=== PATIENT | male | born 1990 | race Caucasian/White ===

== ENCOUNTER 2019-03-31 11:41 | Emergency (ER) | payer MEDICAID, SELFPAY ==
[2019-03-31 11:42] VITALS: BP 116/73; PULSE 82; RESP 18; TEMP 36.6; O2SAT 100; BMI 21.6
[2019-03-31 11:49] VITALS: O2SAT 97
--- NOTE | 2019-03-31 12:06 | ED.DCSUM_ITS ---
- ER Visit Summary Date of Service: 03/31/19 Chief Complaint: Cough History of Present Illness: The patient is a 29 M who presents with cough that has been constant for the past 2 weeks. Patient states he is coughing up some green sputum. Patient states he has sharp pain in his chest with coughing. Patient states he has been having some vomiting when he wakes up in the mornings. Patient also admits to headache and sinus pressure. Patient admits to subjective fevers at home. Patient states he feels short of breath at times. Physical Examination: Vital signs are stable. Patient is afebrile. Patient is in no acute distress. Oral mucosa is pink and moist. Neck is supple. Trachea is midline. There is no JVD. Heart was regular rate and rhythm. Lungs showed scattered rhonchi bilaterally. There is good respiratory effort. Abdomen is soft. Bowel sounds are normal. There is no tenderness. Cranial nerves II through XII are intact. There are no focal motor or sensory deficits noted. Test Results: PA and lateral chest x-ray was obtained. There is no acute cardiopulmonary process. This was interpreted by the radiologist and myself. Emergency Department Course and Treatment: Patient was given a DuoNeb treatment here. Patient felt better on reevaluation. Patient was advised that this is a viral upper respiratory infection and antibiotics are not indicated. Patient was instructed to continue using [id number] decongestants and cough medicine as needed. Patient was instructed to follow-up with his primary care physician in 5 to 7 days. Patient understood and was agreeable with the plan. All questions were answered. Disposition: Discharge home Impression: Viral upper respiratory infection This note was generated with [employer] dictation software. It may contain incorrect words, spelling, and punctuation that were not noted in review of the chart prior to signing ED Disposition - Plan for ED Patient: Disposition: Home or Assisted Living Diagnosis: Viral upper respiratory tract infection with cough Instructions: URI, Viral, No Abx (Adult) Referrals: Care Physician,No Primary [Primary Care Provider] - Daniela Jimenez MD [STAFF PHYSICIAN] - 3-5 Days
[2019-03-31] MEDS: Ipratropium/Albuterol Sulfate 3 ML AMPUL.NEB INHALATION (12:18)
[2019-03-31 12:20] VITALS: PULSE 85; RESP 16; O2SAT 97
--- NOTE | 2019-03-31 12:28 | RAD_ITS ---
STUDY: X-RAY CHEST REASON FOR EXAM: Male, 29 years old. COUGH. CHEST PAIN X A WEEK. WHEEZING. HAD BREATHING TREATMENT TODAY. SMOKER. TECHNIQUE: PA and lateral views of the chest. COMPARISON: None. FINDINGS: The lungs are clear and expanded. There is no demonstrated pleural abnormality. Normal size heart. Normal mediastinum and naz. Normal visualized pulmonary arteries. Normal visualized aortic arch and descending thoracic aorta. Normal visualized thoracic spine. Normal visualized ribs, clavicles, and shoulders. There is no demonstrated abnormality of the visualized soft tissue structures of the upper abdomen. RAD/Chest PA and Lateral IMPRESSION: Normal x-ray examination of the chest. Electronically Signed: Donnie Nettles DO at 12:51 EST Tel , Service support ,
[2019-03-31 12:35] VITALS: BP 138/74; PULSE 81; RESP 16; TEMP 36.4; O2SAT 97
== END 2019-03-31 13:36 | disposition home or self-care (01) ==
PROVIDERS: Emergency Provider Emergency Medicine
DX: J06.9 Acute upper respiratory infection, unspecified (principal); Z72.0 Tobacco use
CPT/HCPCS: 71046; 94640; 99282

== ENCOUNTER → 2020-02-12 | Outpatient (CLI) | payer MEDICAID, SELFPAY ==
[2020-02-12 09:46] VITALS: BMI 24.4
== END | disposition home or self-care (01) ==
LOC: LABSPEC 13:28
PROVIDERS: Referring Provider Physician Assistant; Visit Provider Physician Assistant
DX: Z20.828 Contact with and (suspected) exposure to other viral communicable diseases (principal)
CPT/HCPCS: 87635; U0003

== ENCOUNTER 2020-10-31 09:12 | Emergency (ER) | payer OTHER, MEDICAID, SELFPAY ==
[2020-10-31 09:14] VITALS: BP 114/73; PULSE 77; RESP 16; TEMP 36.6; O2SAT 99; BMI 23.0
--- NOTE | 2020-10-31 09:46 | EDS_ITS ---
HPI History of Present Illness Chief Complaint: Shortness of Breath Detail of Chief Complaint: Shortness of breath and headache Informant: patient Onset/Context/Timing Onset: Days (3) Context: Gradual Onset Timing: Continuous Quality: Sharp Location: Generalized Worsened by: Nothing Relieved by: Nothing Narrative Narrative: Patient presents with headache and cough that has been getting worse over the past 3 days. Patient states he feels like he has a chest cold. Patient states he has generalized headache. Patient states it is sharp. Patient states nothing makes it better nothing makes it worse. Patient states it has been constant for the past 3 days. Patient admits to some nausea and vomiting. Patient denies any neck pain. Patient denies any chest pain or shortness of breath. Patient is also concerned that this could be COVID-19. [facility] Medical History Degenerative disc disease Home Medications NK 03/31/19 [History Last Taken Unknown] Allergy/AdvReac Type Severity Reaction Status Date / Time No Known Allergies Allergy Verified 10/31/20 09:14 no surgical history Social History Smoking Status: Current every day smoker tobacco type: cigarettes ROS ROS ED Constitutional Constitutional ED: Reports chills and subjective; Denies fever(s) Eyes Eyes: Denies blurry vision or change in vision ENT ENT ED: Denies rhinorrhea or sore throat Cardiovascular Cardiovascular: Denies chest pain or palpitations Respiratory/Chest Respiratory/Chest: Reports cough; Denies dyspnea Gastrointestinal Gastrointestinal: Reports nausea and vomiting Genitourinary Genitourinary ED: Reports urinary frequency; Denies dysuria or hematuria Musculoskeletal Musculoskeletal: Reports back pain; Denies neck pain Integumentary Denies abscess or rash Neurologic Neurologic: Reports headache(s); Denies weakness Allergic/Immunologic Allergic/Immunologic ED: Denies mouth swelling or urticaria EXAM Physical Exam Const Vital Signs: 10/31/20 09:14 10/31/20 09:24 Temperature 97.8 F Temperature Source Temporal Pulse Rate 77 Respiratory Rate 16 Respiratory Effort Short of Breath Respiratory Depth Normal Respiratory Pattern Normal Blood Pressure 114/73 Blood Pressure Mean 86 Pulse Ox 99 Oxygen Delivery Method Room Air Room Air Positive well nourished and well developed General Appearance ED: well developed HEENT Reports moist mucous membranes Neck supple and no JVD Resp normal respiratory effort and clear to auscultation bilaterally Cardio regular rate, regular rhythm and no murmurs GI normal to inspection, nondistended, normoactive bowel sounds and non-tender Palpation: soft Extremity normal to inspection General Extremety ED: Negative for edema or tenderness General Extremity: Negative for edema Neuro oriented x3, CN's II-XII intact bilaterally and no sensory deficits noted Sensorium / Orientation: alert Motor Exam: strength 5/5 throughout Psych mental status grossly normal Skin no rashes or lesions noted MDM MDM MDM Narrative Medical decision making narrative: Patient was given IV fluids, Reglan, Benadryl, and Toradol. CBC and comprehensive metabolic profile were obtained and were within normal limits. COVID-19 rapid antigen was obtained and was positive. Patient was advised of his findings. Patient was instructed to quarantine for 10 days. Patient was instructed to follow-up with his primary care physician in 7 to 10 days. Patient understood and was agreeable with the plan. All questions were answered. Lab Data Attestation: I reviewed the patient's lab results. Labs: Laboratory Results - last 24 hr 10/31/20 10/31/20 10:03 10:03 WBC 6.3 RBC 4.94 Hgb 15.1 Hct 44.9 MCV 90.9 MCH 30.6 MCHC 33.6 RDW Std Deviation 41.3 RDW Coeff of [place] 12.5 Plt Count 161 MPV 10.8 Immature Gran % (Auto) 0.200 Neut % (Auto) 61.1 Lymph % (Auto) 27.8 [place] % (Auto) 9.8 Eos % (Auto) 0.8 Baso % (Auto) 0.3 Absolute Neuts (auto) 3.9 Absolute Lymphs (auto) 1.76 Nucleated RBC % 0 Sodium 138 Potassium 4.2 Chloride 107 Carbon Dioxide 29.0 Anion Gap 2 L BUN 8 Creatinine 0.81 Estim Creat Clear Calc 141.16 Est GFR (MDRD) Af Amer 143 Est GFR (MDRD) Non-Af 118 BUN/Creatinine Ratio 9.9 L Glucose 92 Calcium 8.9 Total Bilirubin 0.20 AST 23 ALT 29 Alkaline Phosphatase 103 Total Protein 7.0 Albumin 3.7 Globulin 3.3 Albumin/Globulin Ratio 1.1 Discharge Plan Triage Chief Complaint: Shortness of Breath ED Provider: Schwiger,Emmett Dx/Rx/DC Orders Clinical Impression: COVID-19 Instructions: Coronavirus Disease 2019 (COVID-19): Overview, Coronavirus Disease 2019 (COVID-19): Caring for Yourself or Others Prescriptions: No Action NK RF: 0 Primary Care Provider: Elmo Daly Referrals: Elmo Daly MD [Primary Care Provider] - 5-7 Days Disposition Disposition: Home, Self Care Discharge Date/Time: 10/31/20 11:50
[2020-10-31] MEDS: Ketorolac 30 MG/ML Syringe IV (10:01)
[2020-10-31 10:08] LABS: Absolute Lymphocyte Count 1.76 X10^3/uL (0.83-4.51); Absolute Neutrophil Count 3.9 X10^3/uL (2.0-7.7); Basophil# 0.02 X10^3/uL; Basophil% 0.3 % (0-1); Eosinophil# 0.05 X10^3/uL; Eosinophils% 0.8 % (0-5); Hematocrit 44.9 % (40-54); Hemoglobin 15.1 g/dL (13.0-16.5); Lymphocyte # 1.76 X10^3/ul (0.83-4.51); Lymphocyte % 27.8 % (19-41); Mean Corp Hgb Conc 33.6 g/dL (32-36); Mean Corpuscular Hgb 30.6 pg (27.0-32.0); Mean Corpuscular Volume 90.9 fL (80-94); Mean Platelet Vol. 10.8 fl (6.2-12.0); Monocyte# 0.62 X10^3/uL; Monocyte% 9.8 % (0-10); NRBC Flagged by Analyzer 0 % (0-5); Neutrophil # 3.88 X10^3/uL (2.7-7.7); Neutrophil % 61.1 % (47-70); Platelet Count 161 K/mm3 (150-450); RBC Distribution Width CV 12.5 % (11.6-14.6); RBC Distribution Width SD 41.3 fl (35.1-43.9); Red Blood Count 4.94 M/mm3 (4.6-6.2); White Blood Count 6.3 K/mm3 (4.4-11.0)
[2020-10-31 10:25] LABS: ALB/GLOB Ratio 1.1 RATIO (0.9-2.4); AST(SGOT) 23 U/L (15-37); Alanine Aminotransfer ALT/SGPT 29 U/L (16-61); Albumin, Serum 3.7 g/dL (3.2-5.0); Alkaline Phosphatase 103 U/L (45-117); Anion Gap 2 (5-15); BUN 8 mg/dL (7-18); BUN/Creat Ratio 9.9 RATIO (10-20); Calcium,Total 8.9 mg/dL (8.5-10.1); Chloride 107 mmol/L (98-107); Creatinine, Serum 0.81 mg/dL (0.70-1.30); EST Glomerular Filtration Rate 118 mL/min (>60); Est Glom Filt Rate - Afr Amer 143 mL/min (>60); Estimated Creatinine Clearance 141.16 ml/min; Globulin 3.3 g/dL (2.2-4.2); Glucose 92 mg/dL (74-106); Potassium 4.2 mmol/L (3.5-5.1); Sodium Level 138 mmol/L (136-145)
== END 2020-10-31 11:50 | disposition home or self-care (01) ==
PROVIDERS: Emergency Provider Emergency Medicine; PCP Family Medicine
DX: U07.1 COVID-19 (principal); F17.210 Nicotine dependence, cigarettes, uncomplicated
CPT/HCPCS: 80053; 85025; 87426; 96374; 99283

== ENCOUNTER 2021-03-08 06:27 | Emergency (ER) | payer OTHER, MEDICAID, SELFPAY ==
[2021-03-08 06:28] VITALS: BP 111/72; PULSE 75; RESP 18; TEMP 36.6; O2SAT 98; BMI 23.8
--- NOTE | 2021-03-08 06:40 | EX.ED.DYSGE1 ---
HPI History of Present Illness Chief Complaint: Cold Sx Informant: patient Onset/Context/Timing Onset: Yesterday Context: Gradual Onset Timing: Continuous Quality: Achy Location: All over Current Severity: Moderate Maximum Severity: Moderate Worsened by: Nothing Relieved by: Nothing Associated Symptoms Associated Symptoms ED: cough Narrative Narrative: Patient has a roommate who just got diagnosed with Covid yesterday, patient developed symptoms yesterday and presents here for a test which he requires for work. He was unvaccinated, but he did have Covid back in October and recovered. [facility] Medical History Contusion of right middle finger Degenerative disc disease Herniated disc Laceration of right middle finger Home Medications NK 03/31/19 [History Last Taken Unknown] Allergy/AdvReac Type Severity Reaction Status Date / Time No Known Allergies Allergy Verified 11/24/20 15:09 Social History Smoking Status: Current every day smoker tobacco type: cigarettes ROS ROS ED Constitutional Constitutional ED: Reports body ache(s), chills, fatigue, fever(s), headache(s) and malaise Eyes Eyes: Denies change in vision or diplopia ENT ENT ED: Denies rhinorrhea or sore throat Cardiovascular Cardiovascular: Denies chest pain or palpitations Respiratory/Chest Respiratory/Chest: Reports cough; Denies dyspnea Gastrointestinal Gastrointestinal: Denies abdominal pain, diarrhea, nausea or vomiting Genitourinary Genitourinary ED: Denies dysuria or hematuria Musculoskeletal Musculoskeletal: Denies back pain or neck pain Integumentary Denies abscess or rash Neurologic Neurologic: Reports headache(s); Denies paresthesias or weakness Psychiatric Psychiatric: Denies anxiety or suicidal thoughts EXAM Physical Exam Const Vital Signs: 03/08/21 06:28 03/08/21 06:31 Temperature 97.9 F Temperature Source Temporal Pulse Rate 75 Respiratory Rate 18 Respiratory Effort Normal Respiratory Pattern Normal Blood Pressure 111/72 Blood Pressure Mean 85 Pulse Ox 98 Oxygen Delivery Method Room Air Positive well nourished and well developed Constitutional Narrative: Well-appearing, no distress General Appearance ED: well developed and NAD HEENT Reports moist mucous membranes normocephalic and atraumatic Eyes PERRL and EOMs intact bilaterally Neck full ROM, no lymphadenopathy, supple and no meningeal signs Resp normal respiratory effort and clear to auscultation bilaterally Cardio regular rate, regular rhythm and no murmurs Rate: Negative for tachycardic GI non-tender and non-distended Auscultation: normoactive bowel sounds Palpation: soft Back/Spine no CVA tenderness General Back: other FROM Extremity normal to inspection and no calf tenderness General Extremety ED: Negative for edema, pulses abnormal or tenderness General Extremity: Negative for edema or pulses abnormal Neuro oriented x3, CN's II-XII intact bilaterally and no sensory deficits noted Sensorium / Orientation: awake and alert Motor Exam: strength 5/5 throughout Skin no rashes or lesions noted and no wounds MDM MDM MDM Narrative Medical decision making narrative: Rapid Covid is sent and it is negative. This patient has a high pretest probability for Covid. So that he knows whether he needs to isolate at home or go to work with a mask, I am sending a PCR, when the results return they will notify the patient and he is stable to go home and isolate for now. Discharge Plan Triage Chief Complaint: Cold Sx ED Provider: Juan Heath Dx/Rx/DC Orders Clinical Impression: Acute viral syndrome, Suspected COVID-19 virus infection Instructions: Coronavirus Disease 2019 (COVID-19): Caring for Yourself or Others Prescriptions: No Action NK RF: 0 Primary Care Provider: Elmo Daly Referrals: Elmo Daly MD [Primary Care Provider] - As Needed Disposition Disposition: Home, Self Care
[2021-03-08 07:37] VITALS: PULSE 74; RESP 18; O2SAT 97
== END 2021-03-08 07:39 | disposition home or self-care (01) ==
PROVIDERS: Emergency Provider Emergency Medicine; PCP Family Medicine
DX: B34.9 Viral infection, unspecified (principal); R68.83 Chills (without fever); R05.9 Cough, unspecified; R51.9 Headache, unspecified; M79.10 Myalgia, unspecified site; Z20.822 Contact with and (suspected) exposure to COVID-19; Z86.16 Personal history of COVID-19; F17.210 Nicotine dependence, cigarettes, uncomplicated; Z28.3 Underimmunization status
CPT/HCPCS: 87426; 87635; 99282; U0005; U0003

== ENCOUNTER 2021-08-15 11:13 | Emergency (ER) | payer OTHER, MEDICAID, SELFPAY ==
[2021-08-15 11:14] VITALS: BP 114/74; PULSE 70; RESP 16; TEMP 36.6; O2SAT 98; BMI 24.7
--- NOTE | 2021-08-15 11:29 | EDS_ITS ---
HPI History of Present Illness Chief Complaint: Dizziness Informant: patient Onset/Context/Timing Onset: Yesterday Current Severity: Moderate Maximum Severity: Moderate Narrative Narrative: Patient present secondary to dizziness. He states symptoms started yesterday. Yesterday had some spinning sensation but today has been more of a lightheaded feeling. He does complain of a migraine that started yesterday as well. He does report being out in the heat over the weekend does not feel that he was drinking enough. No recent head injury. No URI symptoms. He denies chest pain or palpitations. [facility] Medical History Degenerative disc disease Herniated disc Home Medications NK 03/31/19 [History Last Taken Unknown] Allergy/AdvReac Type Severity Reaction Status Date / Time No Known Allergies Allergy Verified 08/15/21 11:15 Social History Smoking Status: Current every day smoker tobacco type: cigarettes ROS ROS ED Constitutional Constitutional ED: Denies chills or fever(s) Eyes Eyes: Denies change in vision ENT ENT ED: Denies sore throat Cardiovascular Cardiovascular: Denies chest pain Respiratory/Chest Respiratory/Chest: Denies cough or dyspnea Gastrointestinal Gastrointestinal: Reports nausea and vomiting; Denies abdominal pain Genitourinary Genitourinary ED: Denies dysuria Musculoskeletal Musculoskeletal: Denies back pain Integumentary Denies rash Neurologic Neurologic: Reports headache(s); Denies weakness Psychiatric Psychiatric: Denies anxiety or depression Allergic/Immunologic Allergic/Immunologic ED: Denies urticaria EXAM Physical Exam Const Vital Signs: 08/15/21 11:14 08/15/21 11:29 08/15/21 11:50 Temperature 97.9 F Temperature Source Temporal Pulse Rate 70 61 Respiratory Rate 16 14 Respiratory Effort Normal Non-Labored Respiratory Pattern Normal Blood Pressure 114/74 105/71 Blood Pressure Mean 87 82 Pulse Ox 98 100 Oxygen Delivery Method Room Air Room Air 08/15/21 12:54 Temperature Temperature Source Pulse Rate 66 Respiratory Rate 16 Respiratory Effort Respiratory Pattern Blood Pressure 97/52 L Blood Pressure Mean 67 Pulse Ox 100 Oxygen Delivery Method Room Air Positive well nourished and well developed General Appearance ED: well developed HEENT Reports dry mucous membranes Mouth ED: Yes dry mucous membranes Mouth: dry mucous membranes Eyes PERRL and EOMs intact bilaterally Neck supple Chest Wall inspection of chest normal and palpation of chest normal Resp normal respiratory effort and clear to auscultation bilaterally Cardio regular rate and regular rhythm GI non-tender Palpation: soft Extremity normal to inspection Neuro oriented x3 and no sensory deficits noted Sensorium / Orientation: alert Motor Exam: strength 5/5 throughout Psych mental status grossly normal Skin no rashes or lesions noted MDM MDM MDM Narrative Medical decision making narrative: Lab work obtained along with urinalysis. Patient given IV fluids along with Toradol, Reglan, Benadryl. Lab Data Attestation: I reviewed the patient's lab results. Labs: Laboratory Results - last 24 hr 08/15/21 08/15/21 08/15/21 11:40 11:40 11:40 WBC 9.9 RBC 4.81 Hgb 14.9 Hct 44.1 MCV 91.7 MCH 31.0 MCHC 33.8 RDW Std Deviation 41.1 RDW Coeff of Peterson 12.2 Plt Count 218 MPV 10.2 Immature Gran % (Auto) 0.400 Neut % (Auto) 68.6 Lymph % (Auto) 22.3 [place] % (Auto) 5.7 Eos % (Auto) 2.4 Baso % (Auto) 0.6 Absolute Neuts (auto) 6.8 Absolute Lymphs (auto) 2.21 Nucleated RBC % 0 Sodium 137 Potassium 4.4 Chloride 104 Carbon Dioxide 31.0 Anion Gap 2 L BUN 15 Creatinine 0.84 Estim Creat Clear Calc 131.56 Est GFR (MDRD) Af Amer 137 Est GFR (MDRD) Non-Af 114 BUN/Creatinine Ratio 17.9 Glucose 104 Calcium 9.6 Urine Color Yellow Urine Clarity Clear Urine pH 7.0 Ur Specific [place] 1.010 Urine Protein Negative Urine Glucose (UA) Normal Urine Ketones Negative Urine Occult Blood Negative Urine Nitrite Negative Urine Bilirubin Negative Urine Urobilinogen Normal Ur Leukocyte Esterase Negative Urine RBC 0 SEEN Urine WBC 0 SEEN Ur Squamous Epith Cells 0 SEEN Urine Bacteria 0 SEEN Urine Mucus 0 SEEN Treatment and Re-Evaluation Narrative: On repeat evaluation patient resting comfortably. He reports his headache is significantly improved. Dizziness is also improved. He will be discharged home to continue supportive care at this time. Return instructions given. Discharge Plan Triage Chief Complaint: Dizziness ED Provider: Maryann Veronica Dx/Rx/DC Orders Clinical Impression: Migraine, Dizziness Instructions: ED Dizziness, Uncertain Cause, ED, Migraine (Classical) Prescriptions: No Action NK RF: 0 Primary Care Provider: Elmo Daly Referrals: Elmo Daly MD [Primary Care Provider] - 1 Week if not improving Disposition Disposition: Home, Self Care
[2021-08-15 11:43] LABS: Bacteria 0 SEEN /hpf (None Seen); Mucous, Urine 0 SEEN /hpf (<or=2+); Red Blood Cells-Urine 0 SEEN /hpf (0-5); Squamous Epithelial Cells - UA 0 SEEN /hpf (0-5); White Blood Cells 0 SEEN /hpf (0-5)
[2021-08-15] MEDS: DiphenhydrAMINE 50 MG/ML Syringe 25 MG IV (11:44)
[2021-08-15 11:45] LABS: Color, Urine Yellow (Yellow); Glucose, Dipstick Normal (Normal); Ketone-Dipstick Negative (Negative); Leukocyte Esterase-Dipstick Negative /ul (Negative); Nitrite-Dipstick Negative (Negative); Occult Blood-Urine Negative /ul (Negative); Protein-Dipstick Negative (Negative); Urine Bilirubin Dipstick Negative (Negative); Urine Clarity Clear (Clear); Urine Urobilinogen Normal (Normal)
[2021-08-15] MEDS: Ketorolac 30 MG/ML Syringe IV (11:45)
[2021-08-15] MEDS: 0.9% Normal Saline 1,000 ML 1000 ML IV (11:45)
[2021-08-15] MEDS: Metoclopramide 10 MG/2 ML Vial IV (11:45)
[2021-08-15 11:46] LABS: Absolute Lymphocyte Count 2.21 X10^3/uL (0.83-4.51); Absolute Neutrophil Count 6.8 X10^3/uL (2.0-7.7); Basophil# 0.06 X10^3/uL; Basophil% 0.6 % (0-1); Eosinophil# 0.24 X10^3/uL; Eosinophils% 2.4 % (0-5); Hematocrit 44.1 % (40-54); Hemoglobin 14.9 g/dL (13.0-16.5); Lymphocyte # 2.21 X10^3/ul (0.83-4.51); Lymphocyte % 22.3 % (19-41); Mean Corp Hgb Conc 33.8 g/dL (32-36); Mean Corpuscular Volume 91.7 fL (80-94); Mean Platelet Vol. 10.2 fl (6.2-12.0); Monocyte# 0.56 X10^3/uL; Monocyte% 5.7 % (0-10); NRBC Flagged by Analyzer 0 % (0-5); Neutrophil # 6.79 X10^3/uL (2.7-7.7); Neutrophil % 68.6 % (47-70); Platelet Count 218 K/mm3 (150-450); RBC Distribution Width CV 12.2 % (11.6-14.6); RBC Distribution Width SD 41.1 fl (35.1-43.9); Red Blood Count 4.81 M/mm3 (4.6-6.2); White Blood Count 9.9 K/mm3 (4.4-11.0)
[2021-08-15 11:50] VITALS: BP 105/71; PULSE 61; RESP 14; O2SAT 100
[2021-08-15 12:00] LABS: Anion Gap 2 (5-15); BUN 15 mg/dL (7-18); BUN/Creat Ratio 17.9 RATIO (10-20); Calcium,Total 9.6 mg/dL (8.5-10.1); Chloride 104 mmol/L (98-107); Creatinine, Serum 0.84 mg/dL (0.70-1.30); EST Glomerular Filtration Rate 114 mL/min (>60); Est Glom Filt Rate - Afr Amer 137 mL/min (>60); Estimated Creatinine Clearance 131.56 ml/min; Glucose 104 mg/dL (74-106); Potassium 4.4 mmol/L (3.5-5.1); Sodium Level 137 mmol/L (136-145)
[2021-08-15 12:54] VITALS: BP 97/52; PULSE 66; RESP 16; O2SAT 100
[2021-08-15] MEDS: 0.9% Normal Saline 1,000 ML 150 ML IV (12:55)
== END 2021-08-15 13:32 | disposition home or self-care (01) ==
PROVIDERS: Emergency Provider Emergency Medicine; PCP Family Medicine; Visit Provider Emergency Medicine
DX: R42 Dizziness and giddiness (principal); G43.909 Migraine, unspecified, not intractable, without status migrainosus; F17.210 Nicotine dependence, cigarettes, uncomplicated
CPT/HCPCS: 80048; 81001; 85025; 96361; 96374; 96375; 99283; J7030; A4216

== ENCOUNTER 2021-08-28 11:28 | Emergency (ER) | payer OTHER, MEDICAID, SELFPAY ==
[2021-08-28 11:29] VITALS: BP 121/87; PULSE 69; RESP 14; TEMP 36.7; O2SAT 100; BMI 24.0
--- NOTE | 2021-08-28 12:59 | ED.VIS.BACK ---
HPI History of Present Illness Chief Complaint: Back Informant: patient Onset/Context/Timing Onset: Days Context: Gradual Onset Injury: lifting Timing: Intermittent Quality: Sharp Location: Lumbar Current Severity: Mild Maximum Severity: Moderate Worsened by: improves with Movement, Bending and Lifting; worse with Night time pain Relieved by: Remaining Still Associated Symptoms Associated Symptoms: Radiation to Left Leg; Negative for Numbness, Tingling, Radiation to Right Leg, Fever, Abdominal Pain, Dysuria, Unable to Ambulate, Unable to Transfer, Urinary Retention, Urinary Incontinence, Constipation or Fecal Incontinence Narrative Narrative: 31-year-old male history of degenerative disc disease from a reported prior MRI done at the [facility]. He sees a back specialist at the main [place]. He states that this he developed pain again last several days it radiates to his left leg. Denies any bowel or bladder incontinence. No leg weakness. No fever. No falls or trauma. He has never had back surgery. Has been through physical therapy twice and states that its not improving his symptoms. He states I want surgery. Prior similar symptoms: Yes Recent Illness/Hospitalization: No [facility] Medical History Degenerative disc disease Herniated disc Home Medications prednisone 20 mg tablet 40 mg PO DAILY 7 days #14 tabs 08/28/21 [Rx Last Taken Unknown] Allergy/AdvReac Type Severity Reaction Status Date / Time No Known Allergies Allergy Verified 08/28/21 11:30 Social History Smoking Status: Current every day smoker tobacco type: cigarettes ROS ROS ED ROS Narrative Back pain. Review of Systems ROS Unobtainable: Denies due to encephalopathy Constitutional Constitutional ED: Denies chills or fever(s) Eyes Eyes: Denies blurry vision ENT ENT ED: Denies ear pain Cardiovascular Cardiovascular: Denies chest pain Respiratory/Chest Respiratory/Chest: Denies dyspnea Gastrointestinal Gastrointestinal: Denies abdominal pain, constipation, diarrhea, melena, nausea or vomiting Genitourinary Genitourinary ED: Denies dysuria or hematuria Musculoskeletal Musculoskeletal: Reports back pain; Denies arthralgias, myalgias or neck pain Integumentary Denies abscess Neurologic Neurologic: Denies headache(s) Psychiatric Psychiatric: Denies anxiety Endocrine Endocrinology: Denies cold intolerance Hematologic/Lymphatic Hematologic/Lymphatic: Denies easy bleeding Allergic/Immunologic Allergic/Immunologic ED: Denies mouth swelling EXAM Physical Exam Narrative Exam Narrative: 31-year-old male no acute distress. Vital signs stable afebrile. Sitting upright in bed. H EENT exam unremarkable. Neck nontender. Lungs are clear. Heart regular rate and rhythm. Rate about 70. Abdomen soft nontender. Moving all 4 extremities. Neurovascular intact. 5-5 cafeteria helper strength. Dorsi plantarflexion intact. She is a positive straight leg raise on the left at about 30 degrees. No cauda equina. No saddle anesthesia. He has back pain is really not reproducible. Neurologic exam unremarkable with no focal motor or sensory deficits. Const Vital Signs: 08/28/21 11:29 Temperature 98.1 F Temperature Source Temporal Pulse Rate 69 Respiratory Rate 14 Blood Pressure 121/87 H Blood Pressure Mean 98 Pulse Ox 100 Oxygen Delivery Method Room Air Positive well nourished and well developed; Negative for obese, cachectic, contractures or unkempt General Appearance ED: well developed; Negative for unkempt, cachectic, contractures or pallor Nutritional Appearance: Negative for cachectic or obese HEENT Reports moist mucous membranes; Denies dry mucous membranes Negative for trauma or tenderness Mouth ED: No dry mucous membranes Mouth: No dry mucous membranes Eyes PERRL and EOMs intact bilaterally General Eye ED: Negative for pale conjunctiva or scleral icterus Neck no lymphadenopathy, supple and no JVD General: Negative for tenderness Resp normal respiratory effort and clear to auscultation bilaterally Auscultation: Negative for rales, rhonchi, wheezes or diminished lung sounds Cardio regular rate, regular rhythm, S1 normal heart sound, S2 normal heart sound and no murmurs GI normal to inspection, nondistended, normoactive bowel sounds, soft to palpation, non-tender, non-distended and no masses Inspection: Negative for abdominal distention Palpation: Negative for tender Back/Spine normal to inspection and no thoracic nor lumbar tenderness Cervical Spine: Negative for cervical spine tenderness Thoracic Spine / Upper Back: Negative for paraspinal muscle tenderness Lumbar Spine / Lower Back: ROM limited and straight leg raise positive - left; Negative for straight leg raise negative bilaterally Extremity normal to inspection and no clubbing, cyanosis or edema General Extremety ED: Negative for edema General Extremity: Negative for edema Neuro oriented x3 and no sensory deficits noted Sensorium / Orientation: alert; Negative for confused, lethargic or stuporous Motor Exam: strength 5/5 throughout Psych mental status grossly normal Appearance: Negative for unkempt Attitude: No agitated Mood & Affect: Negative for depressed, sad or tearful Skin no rashes or lesions noted and no wounds General Skin Exam: Negative for jaundice or pallor Rashes: No rashes noted Trauma: Negative for abrasion Wounds: Negative for wounds noted MDM MDM MDM Narrative Medical decision making narrative: 31-year-old male known degenerative disc disease reportedly from a prior UT at the [facility]. Sees a back specialist at [facility] and [facility]. He states his pain is returned. Radiating down his left leg. Exam is consistent with a 30 degree straight leg raise. He will be placed on prednisone. And he requested other hospitality specialist he could see because he wants to have surgery. I did explain to him that typically they try to avoid surgery unless absolutely necessary especially at a young age. Discharge Plan Triage Chief Complaint: Back ED Provider: Quoc Henao Dx/Rx/DC Orders Clinical Impression: Back pain, History of degenerative disc disease Instructions: Understanding Lumbar Radiculopathy, ED Back and Neck Pain, General Prescriptions: New prednisone 20 mg tablet 40 mg PO DAILY 7 Days Qty: 14 0RF Primary Care Provider: Elmo Daly Referrals: Elmo Daly MD [Primary Care Provider] - As Needed Ric Dey DO [STAFF PHYSICIAN] - As soon as possible Jake Newton DO [STAFF PHYSICIAN] - As soon as possible Activity Restrictions/Additional Instructions: Follow-up with either your spine doctor [facility] or the 2 local spine doctors are Dr. Ric Newton you can call their office to get appointment. I would take a copy of your MRI with you. Motrin and Tylenol for pain. Prednisone to decrease inflammation in your back. Disposition Disposition: Home, Self Care
[2021-08-28] MEDS: predniSONE 20 MG Tablet 60 MG PO (13:20)
[2021-08-28] MEDS: HYDROcodone Bitartrate/Apap 5/325 Tablet PO (13:20)
[2021-08-28 13:23] VITALS: BP 139/82; PULSE 71; RESP 16; O2SAT 98
== END 2021-08-28 13:23 | disposition home or self-care (01) ==
PROVIDERS: Emergency Provider Emergency Medicine; PCP Family Medicine; Visit Provider Emergency Medicine
DX: M54.9 Dorsalgia, unspecified (principal); F17.210 Nicotine dependence, cigarettes, uncomplicated
CPT/HCPCS: 99283

== ENCOUNTER 2022-04-18 13:46 | Emergency (ER) | payer OTHER, MEDICAID, SELFPAY ==
[2022-04-18 13:46] VITALS: BP 127/78; PULSE 91; RESP 16; TEMP 36.6; O2SAT 98; BMI 25.7
--- NOTE | 2022-04-18 13:52 | NURSING ---
NO OLD EKGS
--- NOTE | 2022-04-18 13:59 | EKG12_ITS ---
Test Reason : CP Blood Pressure : / mmHG Vent. Rate : 063 BPM Atrial Rate : 063 BPM P-R Int : 132 ms QRS Dur : 086 ms QT Int : 378 ms P-R-T Axes : 073 089 065 degrees QTc Int : 386 ms Normal sinus rhythm Normal ECG Confirmed by MARY HINKLE, PHILLY ([id number]), department editor GLENYS JONES ([id number]) on 04/20/2022 10:06:16 AM Referred By: VON Confirmed By:PHILLY HERNANDEZ MD
--- NOTE | 2022-04-18 14:13 | NURSING ---
NO OLD EKGS
[2022-04-18 14:22] LABS: Absolute Neutrophil Count 4.9 X10^3/uL (2.0-7.7); Basophil# 0.08 X10^3/uL; Eosinophil# 0.04 X10^3/uL; Eosinophils% 0.5 % (0-5); Hematocrit 44.4 % (40-54); Hemoglobin 15.6 g/dL (13.0-16.5); Lymphocyte % 31.4 % (19-41); Mean Corp Hgb Conc 35.1 g/dL (32-36); Mean Corpuscular Hgb 31.1 pg (27.0-32.0); Mean Corpuscular Volume 88.4 fL (80-94); Monocyte# 0.63 X10^3/uL; Monocyte% 7.6 % (0-10); NRBC Flagged by Analyzer 0 % (0-5); Neutrophil # 4.92 X10^3/uL (2.7-7.7); Neutrophil % 59.3 % (47-70); Platelet Count 253 K/mm3 (150-450); RBC Distribution Width CV 12.3 % (11.6-14.6); RBC Distribution Width SD 39.8 fl (35.1-43.9); Red Blood Count 5.02 M/mm3 (4.6-6.2); White Blood Count 8.3 K/mm3 (4.4-11.0)
[2022-04-18 14:45] LABS: Anion Gap 6 (5-15); BUN 22 mg/dL (7-18); BUN/Creat Ratio 24.6 RATIO (10-20); Calcium,Total 9.3 mg/dL (8.5-10.1); Chloride 107 mmol/L (98-107); EST Glomerular Filtration Rate 104 mL/min (>60); Est Glom Filt Rate - Afr Amer 126 mL/min (>60); Glucose 99 mg/dL (74-106); Potassium 3.8 mmol/L (3.5-5.1); Sodium Level 139 mmol/L (136-145); Troponin-I HS 4 pg/mL (3.0-78.0)
--- NOTE | 2022-04-18 14:50 | RAD_ITS ---
STUDY: X-RAY CHEST REASON FOR EXAM: Male, 32 years old. Right-sided chest pain. Dyspnea. TECHNIQUE: Single AP portable view of the chest. COMPARISON: Comparison is made with prior study dated 03/31/2019. FINDINGS: The lungs are clear and expanded. There is no demonstrated pleural abnormality. Normal size heart. Normal mediastinum and naz. Normal visualized pulmonary arteries. Normal visualized aortic arch and descending thoracic aorta. Normal visualized thoracic spine. Normal visualized ribs, clavicles, and shoulders. There is no demonstrated abnormality of the visualized soft tissue structures of the upper abdomen. RAD/Chest 1 View (Portable) IMPRESSION: Normal x-ray examination of the chest. Electronically Signed: Severo Martin MD at 15:01 EST ,
[2022-04-18 15:42] VITALS: BP 136/83; PULSE 72; RESP 16
--- NOTE | 2022-04-18 15:49 | EDS_ITS ---
HPI History of Present Illness Chief Complaint: Chest Pain Narrative Narrative: 32-year-old male presenting with right-sided chest pain. It started at 11 AM. It lasted for 3 hours. It was not severe. Patient states he stayed at work. He did feel little bit short of breath. But now his pain in his shortness of breath have resolved. Patient denies any trauma. He did not take anything to resolve his pain. Denies any cardiac history. He states he is already had a stress test at 32 years old and it was normal. No history of DVT/PE and no risk factors. No fevers, chills, cough. He states that there is no family history of early cardiac disease in his family. He is a smoker. [facility] Medical History Degenerative disc disease Herniated disc Home Medications prednisone 20 mg tablet 40 mg PO DAILY 7 days #14 tabs 08/28/21 [Rx Last Taken Unknown] Allergy/AdvReac Type Severity Reaction Status Date / Time No Known Allergies Allergy Verified 04/18/22 13:48 Social History Smoking Status: Current every day smoker tobacco type: cigarettes ROS ROS ED Constitutional Constitutional ED: Denies chills, fever(s) or sweats Eyes Eyes: Denies blurry vision or change in vision ENT ENT ED: Denies ear pain or sore throat Cardiovascular Cardiovascular: Reports chest pain; Denies palpitations or racing heartbeat Respiratory/Chest Respiratory/Chest: Reports dyspnea; Denies cough or sputum Gastrointestinal Gastrointestinal: Denies abdominal pain, constipation, diarrhea, nausea or vomiting Genitourinary Genitourinary ED: Denies dysuria, hematuria or urinary frequency Musculoskeletal Musculoskeletal: Denies arthralgias, myalgias or neck pain Integumentary Denies abscess, Abrasions or rash Neurologic Neurologic: Denies headache(s), paresthesias or weakness Psychiatric Psychiatric: Denies anxiety, depression, suicidal ideation or suicidal thoughts Endocrine Endocrinology: Denies polydipsia or polyuria EXAM Physical Exam Const Vital Signs: 04/18/22 13:46 04/18/22 15:41 04/18/22 15:42 Temperature 98 F Temperature Source Temporal Pulse Rate 91 72 Respiratory Rate 16 16 Respiratory Effort Blood Pressure 127/78 H 136/83 H Blood Pressure Mean 94 100 Pulse Ox 98 Oxygen Delivery Method Room Air Room Air 04/18/22 15:42 Temperature Temperature Source Pulse Rate Respiratory Rate Respiratory Effort Normal Non-Labored Blood Pressure Blood Pressure Mean Pulse Ox Oxygen Delivery Method General Appearance ED: Negative for pallor HEENT Reports normocephalic, head/scalp atraumatic and moist mucous membranes Eyes PERRL and EOMs intact bilaterally Neck no lymphadenopathy and supple Chest Wall inspection of chest normal and palpation of chest normal Resp normal respiratory effort and clear to auscultation bilaterally Auscultation: Negative for rales, rhonchi or wheezes Cardio regular rate and regular rhythm GI normal to inspection, nondistended, normoactive bowel sounds and non-distended Auscultation: normoactive bowel sounds Palpation: soft Narrative: Deferred Extremity normal to inspection General Extremety ED: Yes edema and tenderness General Extremity: edema Neuro oriented x3 and CN's II-XII intact bilaterally Sensorium / Orientation: alert Motor Exam: strength 5/5 throughout Psych mental status grossly normal Attitude: No agitated Skin no rashes or lesions noted and no wounds General Skin Exam: Negative for jaundice or pallor Heart Score History: Slightly/Non-Suspicious ECG: Normal Age: </= 45 years Risk Factors: 1 or 2 Risk Factors Troponin: </= Normal Limit Score: 1 MDM MDM MDM Narrative Medical decision making narrative: 32-year-old male presenting with right-sided chest pain which resolved. He was there for about 3 hours. It was not severe. He had some shortness of breath. Patient has a HEART score of 1 because he is a smoker. No other medical problems. No early cardiac disease in his family. No history of DVT/PE and no risk factors. Patient currently PERC negative. CBC was used to assess white blood cell count, hemoglobin, differential is unremarkable. BMP to assess renal function electrolytes is also normal. High-sensitivity troponin is 4. Chest x- ray on my interpretation shows no acute cardiopulmonary process. Radiologist represents and agrees. I do not believe the patient needs a delta troponin. I did recommend he follow-up with his PCP. Impression: 1. Chest pain Lab Data Labs: Laboratory Results - last 24 hr 04/18/22 04/18/22 14:12 14:12 WBC 8.3 RBC 5.02 Hgb 15.6 Hct 44.4 MCV 88.4 MCH 31.1 MCHC 35.1 RDW Std Deviation 39.8 RDW Coeff of Peterson 12.3 Plt Count 253 MPV 10.0 Immature Gran % (Auto) 0.200 Neut % (Auto) 59.3 Lymph % (Auto) 31.4 Williams % (Auto) 7.6 Eos % (Auto) 0.5 Baso % (Auto) 1.0 Absolute Neuts (auto) 4.9 Absolute Lymphs (auto) 2.60 Nucleated RBC % 0 Sodium 139 Potassium 3.8 Chloride 107 Carbon Dioxide 26.0 Anion Gap 6 BUN 22 H Creatinine 0.90 Estim Creat Clear Calc 125.50 Est GFR (MDRD) Af Amer 126 Est GFR (MDRD) Non-Af 104 BUN/Creatinine Ratio 24.6 H Glucose 99 Calcium 9.3 Troponin I High Sens 4 Radiography Diagnostic Testing: Clinical Impression(s) from Imaging Studies Chest X-Ray 04/18/22 14:50 IMPRESSION: Normal x-ray examination of the chest. Electronically Signed: Severo Martin MD at 15:01 EST , Discharge Plan Triage Chief Complaint: Chest Pain ED Provider: Polo Palm Dx/Rx/DC Orders Prescriptions: No Action prednisone 20 mg tablet 40 mg PO DAILY 7 Days Qty: 14 0RF Primary Care Provider: Elmo Daly Referrals: Elmo Daly MD [Primary Care Provider] -
--- NOTE | 2022-04-18 16:52 | ED.RN ---
PT CALLED THIS RN TO ROOM, STATES DOCTOR SAID I'M FINE, I WANT TO LEAVE, I'M HUNGRY PT REFUSES TO WAIT ON DC PAPERS. IV REMOVED, PT DENIES QUESTIONS, VOICES UNDERSTANDING TO RETURN FOR ANY FURTHER CONCERNS. NOTIFIED
== END 2022-04-18 15:50 | disposition home or self-care (01) ==
LOC: ED 16:15
PROVIDERS: Emergency Provider Student in an Organized Health Care Education/Training Program; PCP Family Medicine; Visit Provider Student in an Organized Health Care Education/Training Program
DX: R07.9 Chest pain, unspecified (principal); R06.02 Shortness of breath; F17.210 Nicotine dependence, cigarettes, uncomplicated
CPT/HCPCS: 71045; 80048; 84484; 85025; 93005; 99284; A4216

== ENCOUNTER 2022-08-08 07:04 | Emergency (ER) | payer OTHER, MEDICAID, SELFPAY ==
[2022-08-08 07:05] VITALS: BP 125/75; PULSE 80; RESP 14; TEMP 36.8; O2SAT 97; BMI 24.1
--- NOTE | 2022-08-08 07:06 | EX.ED.DYSGE1 ---
HPI History of Present Illness Chief Complaint: Sore Throat [facility] Medical History (Updated 08/08/22 @ 07:[address] Daron Srivastava DO) Degenerative disc disease Herniated disc Laceration of right index finger Home Medications amoxicillin 875 mg-potassium clavulanate 125 mg tablet 1 tab PO BID #14 tabs 08/08/22 [Rx Last Taken Unknown] Allergy/AdvReac Type Severity Reaction Status Date / Time No Known Allergies Allergy Verified 08/08/22 07:06 Social History Smoking Status: Current every day smoker tobacco type: cigarettes EXAM Physical Exam Const Vital Signs: 08/08/22 07:05 Temperature 98.3 F Temperature Source Temporal Pulse Rate 80 Respiratory Rate 14 Blood Pressure 125/75 H Blood Pressure Mean 91 Pulse Ox 97 Oxygen Delivery Method Room Air [facility] Narrative Medical decision making narrative: HISTORY OF PRESENT ILLNESS: 32-year-old male here with sore throat for last 4 days. States his daughter was recently diagnosed with strep. He also states he has a cough, occasional fevers. Denies shortness of breath or chest pain. Denies any vomiting. Denies neck stiffness drooling or difficulty swallowing. Denies any submandibular edema. REVIEW OF SYSTEMS: Pertinent positives: Sore throat Pertinent negatives: PHYSICAL EXAM: Nursing triage notes reviewed, Vital signs reviewed Constitutional: please see mdm HENT: MMM, no submandibular edema, no neck stiffness, uvula midline, erythema noted to bilateral posterior oropharynx. No obvious exudates. Eyes: Pupils equal round and reactive to light, Extraocular muscles intact Neck: No stridor, no JVD, full neck ROM, anterior lymphadenopathy noted Lungs: Clear to auscultation, no focal consolidation. No wheezing or rales. No increased work of breathing, no conversational dyspnea, no accessory muscle use, no nasal flaring. No respiratory distress noted Heart: Regular rate and rhythm, No murmurs, No rubs and No gallops, 2+ distal pulses (radial, femoral, posterior tibial) in all extremities. MEDICAL DECISION MAKING: Chief Complaint: Sore throat External records reviewed: [facility]. No recent ED visits or hospitalizations Factors affecting care: herniated disc, DDD Social determinants of health: Current everyday smoker History obtained from others: none Consults: none ALL IMAGES HAVE BEEN PERSONALLY REVIEWED AND INTERPRETED BY MYSELF. MDM Narrative: The patient was hemodynamically stable, afebrile, non-toxic appearing. Exam consistent with pharyngitis I considered the following differential diagnosis: Bacterial pharyngitis, viral pharyngitis, Lemierre's syndrome, Ludewig's angina, RPA, MANAGER [employer] ADMINISTRATION There is no clinical evidence to suggest RPA, MANAGER [employer] ADMINISTRATION Lemierre's syndrome or Demetrio angina. Patient is likely suffering from bacterial pharyngitis given recent sick contact with his daughter having strep throat. Will give empiric Augmentin. Gave strict return precautions and follow-up instructions. Patient is agreeable with plan. Total critical care time today provided was at least 0 minutes. This excludes separately billable procedures. There was a high probability of clinically significant/life threatening deterioration in the patient's condition which required my urgent intervention. Shared decision making: I will have a discussion with the patient and or visitors regarding risk/benefits of further testing or admission. They will be made aware of of the risk/benefits inherent in this decision they will be given the opportunity to voice understanding. Discharge Plan Triage Chief Complaint: Sore Throat ED Provider: Daron Srivastava Dx/Rx/DC Orders Clinical Impression: Acute bacterial pharyngitis Prescriptions: New amoxicillin-pot clavulanate 875-125 mg tablet 1 tab PO BID Qty: 14 0RF Stand Alone Forms: ED Work / School Excuse Primary Care Provider: Elmo Daly Referrals: Elmo Daly MD [Primary Care Provider] - Activity Restrictions/Additional Instructions: Thank you for trusting us with your care today! Please take Tylenol (2 pills, 650 mg), ibuprofen (2 pills, 400 mg) every 6 hours as needed for pain and fever control. Please take antibiotics until course is complete. Please return to the emergency department if your symptoms change or worsen. Specifically if you develop difficulty swallowing, drooling, neck stiffness, you cannot tolerate antibiotics by mouth. Please follow with your primary care physician for further outpatient evaluation and management. Disposition Disposition: Home, Self Care
[2022-08-08] MEDS: Ibuprofen 200 MG Tablet 400 MG PO (07:41)
[2022-08-08] MEDS: Amox/Clavulanate 875 MG Tablet PO (07:42)
== END 2022-08-08 08:00 | disposition home or self-care (01) ==
PROVIDERS: Emergency Provider Emergency Medicine; PCP Family Medicine; Visit Provider Emergency Medicine
DX: J02.8 Acute pharyngitis due to other specified organisms (principal); F17.210 Nicotine dependence, cigarettes, uncomplicated
CPT/HCPCS: 99283

== ENCOUNTER 2023-04-09 10:42 | Emergency (ER) | payer OTHER, MEDICAID, SELFPAY ==
[2023-04-09 10:43] VITALS: BP 125/70; PULSE 78; RESP 16; TEMP 36.9; O2SAT 94; BMI 22.8
--- NOTE | 2023-04-09 14:03 | ED.RN ---
Pt not in waiting room when called. [id number]
--- OUTSIDE RECORDS SUMMARY | 2023-04-09 15:00 | XMS RPT_ITS | CCD ---
Author Name Unknown Address [address] [place] [address] Organization [facility] Care Team Providers Care Ribbon Blocker Name Role Phone Antonella Kerr Unavailable Unavailable Antonella Kerr Unavailable Unavailable Olivia Moreland LPN Unavailable Nancy Daly MD Primary Care Provider Nancy Daly MD Primary Care Provider Nancy Daly MD Primary Care Provider Nancy Daly MD Primary Care Provider NANCY DALY Primary Care Unavailab RYNE Gasca Attending Unavailable RYNE CAMACHO Admitting Unavailable RYNE CAMACHO Attending Unavailable RYNE CAMACHO Admitting Unavailable NANCY DALY Primary Care Unavailab CATINA Nagy Attending Unavailable NANCY DALY Primary Care Unavailab [place] Nagy Attending Unavailable NANCY DALY Referring Unavailab NANCY Frias Primary Care Unavailab [place] Nagy Referring Unavailable NANCY DALY Primary Care Unavailab NANCY Frias Attending Unavailab NANCY Frias Primary Care Unavailab TOBIAS Odell Referring Unavailable NANCY DALY Primary Care Unavailab CAT[place] Nagy Referring Unavailable NANCY DALY Primary Care Unavailab [place] Nagy Attending Unavailable NANCY DALY Primary Care Unavailab le TIFFANY SUN Attending Unavailable NANCY DALY Primary Care Unavailab CATINA Nagy Attending Unavailable NANCY DALY Primary Care Unavailab le NANCY DALY Primary Care Unavailab le TOBIAS STUBBS Attending Unavailable NANCY DALY Referring Unavailab NANCY Frias Primary Care Unavailab le ENOCTOBIAS PARRA Referring Unavailable NANCY DALY Primary Care Unavailab le ENOCTOBIAS Referring Unavailable NANCY DALY Primary Care Unavailab TOBIAS Odell Referring Unavailable TOBIAS STUBBS Referring Unavailable TOBIAS STUBBS Attending Unavailable NANCY DALY Primary Care Unavailab le NANCY DALY Primary Care Unavailab le NANCY DALY Referring Unavailab le ENOCTOBIAS PARRA Attending Unavailable TOBIAS STUBBS Admitting Unavailable NANCY DALY Primary Care Unavailab tete ENOCTOBIAS PARRA Attending Unavailable TOBIAS STUBBS Referring Unavailable CATINA LLOYD Referring Unavailable NANCY DALY Primary Care Unavailab le ENOCTOBIAS PARRA Attending Unavailable TOBIAS STUBBS Attending Unavailable NANCY DALY Primary Care Unavailab le NANCY DALY Primary Care Unavailab le ENOCTOBIAS Attending Unavailable Medications Current Medications Medication Drug Class(es) Dates Sig (Normalized) Sig (Original) clotrimazole 10 mg/ml topical cream (2 sources) Azole Antifungal Start: 09-13-2021 End: 09-27-2021 clotrimazole (LOTRIMIN, CLOTRIM) 1 % cream Indications: Rash of genital area Apply to affected area twice daily for 14 days. 30 g 1 09/13/2021 09/27/2021 Active Completed/Discontinued Medications Medication Drug Class(es) Dates Sig (Normalized) Sig (Original) acetaminophen 325 mg oral tablet (13 sources) take 2 tablets by mouth every six hours as needed acetaminophen (TYLENOL) 325 mg tablet Take 650 mg by mouth every 6 hours as needed. 0 Active Problems Active Problems Problem Classification Problem Date Documented Date Episodic/Chronic Abdominal pain (1 source) Flank pain; Translations: [Unspecified abdominal pain] Episodic Genitourinary symptoms and ill-defined conditions (1 source) Dysuria; Translations: [Dysuria] Episodic Immunizations and screening for infectious disease (1 source) Methicillin resistant staphylococcus aureus positive; Translations: [Carrier or suspected carrier of Methicillin resistant Staphylococcus aureus] 11-09-2022 Episodic Mood disorders (1 source) Depressive disorder; Translations: [Depression, unspecified depression type] Chronic Other male genital disorders (1 source) Lesion of penis; Translations: [Disorder of penis, unspecified] Chronic Other nervous system disorders (1 source) Other chronic pain; Translations: [Chronic left-sided low back pain with left-sided sciatica] Onset: 03-09-2022 Chronic Other skin disorders (1 source) Rash of genitalia; Translations: [Rash and other nonspecific skin eruption] Episodic Other upper respiratory infections (4 sources) Pharyngitis; Translations: [Sore throat symptom] Onset: 07-11-2016 07-11-2016 Episodic Residual codes; unclassified (20 sources) Tobacco use and exposure - finding; Translations: [Tobacco use] 09-18-2016 Episodic Spondylosis; intervertebral disc disorders; other back problems (20 sources) Lumbar spondylosis; Translations: [Spondylosis without myelopathy or radiculopathy, lumbar region] Onset: 12-08-2012 12-08-2012 Chronic Unclassified (1 source) Established Patient Onset: 11-30-2022 Past or Other Problems Problem Classification Problem Date Documented Date Episodic/Chronic Other nervous system disorders (1 source) Other acute postprocedural pain; Translations: [Post-op pain] Onset: 11-15-2022 Episodic Residual codes; unclassified (1 source) Tobacco use; Translations: [Tobacco use] Onset: 09-18-2016 Episodic Spondylosis; intervertebral disc disorders; other back problems (20 sources) Backache; Translations: [Dorsalgia, unspecified] Onset: 02-21-2011 02-21-2011 Episodic Substance-related disorders (20 sources) Marijuana user; Translations: [Cannabis use, unspecified, uncomplicated] Onset: 09-18-2016 09-18-2016 Episodic Results Test Name Value Interpretation Reference Range Facil ity Vital Signs Date Time Vital Sign Value Performing Clinician Faci lity 02-19-2023 07:28-0500 Body height 180.3 cm [facility] Work Phone: [facility] 02-19-2023 07:28-0500 Body weight 76.2 kg [facility] Work Phone: [facility] 02-19-2023 07:28-0500 Diastolic blood pressure 75 mm[Hg] Tobias Enoc DO Work Phone: [facility] 02-19-2023 07:28-0500 Heart rate 72 /min Tobias Enoc DO Work Phone: [facility] 02-19-2023 07:28-0500 Respiratory rate 16 /min Tobias Enoc DO Work Phone: [facility] 02-19-2023 07:28-0500 SaO2% (BldA) [Mass fraction] 100 % Tobias Enoc DO Work Phone: [facility] 02-19-2023 07:28-0500 Systolic blood pressure 112 mm[Hg] Tobias Enoc DO Work Phone: [facility] 01-08-2023 07:16-0400 Body height 180.3 cm Tobias Enoc DO Work Phone: [facility] 01-08-2023 07:16-0400 Body weight 78.3 kg Tobias Enoc DO Work Phone: [facility] 01-08-2023 07:16-0400 Diastolic blood pressure 69 mm[Hg] Tobias Enoc DO Work Phone: [facility] 01-08-2023 07:16-0400 Heart rate 76 /min Tobias Enoc DO Work Phone: [facility] 01-08-2023 07:16-0400 Respiratory rate 16 /min Tobias Enoc DO Work Phone: [facility] 01-08-2023 07:16-0400 SaO2% (BldA) [Mass fraction] 100 % Tobias Enoc DO Work Phone: [facility] 01-08-2023 07:16-0400 Systolic blood pressure 101 mm[Hg] Tobias Enoc DO Work Phone: [facility] 11-30-2022 08:29-0400 Body height 180.3 cm Tobias Enoc DO Work Phone: [facility] 11-30-2022 08:29-0400 Body weight 78.2 kg Tobias Enoc DO Work Phone: [facility] 11-30-2022 08:29-0400 Diastolic blood pressure 66 mm[Hg] Tobias Enoc DO Work Phone: [facility] 11-30-2022 08:29-0400 Heart rate 69 /min Tobias Enoc DO Work Phone: [facility] 11-30-2022 08:29-0400 Respiratory rate 16 /min Tobias Enoc DO Work Phone: [facility] 11-30-2022 08:29-0400 SaO2% (BldA) [Mass fraction] 100 % Tobias Enoc DO Work Phone: [facility] 11-30-2022 08:29-0400 Systolic blood pressure 107 mm[Hg] Tobias Enoc DO Work Phone: [facility] 11-08-2022 08:06-0400 Body height 180.3 cm Pst 1 [facility] 11-08-2022 08:06-0400 Body temperature 99.1 [degF] Pst 1 [facility] 11-08-2022 08:06-0400 Body weight 74.84 kg Pst 1 [facility] 11-08-2022 08:06-0400 Diastolic blood pressure 73 mm[Hg] Pst 1 [facility] 11-08-2022 08:06-0400 Heart rate 74 /min Pst 1 [facility] 11-08-2022 08:06-0400 Respiratory rate 16 /min Pst 1 [facility] 11-08-2022 08:06-0400 SaO2% (BldA) [Mass fraction] 97 % Pst 1 [facility] 11-08-2022 08:06-0400 Systolic blood pressure 110 mm[Hg] Pst 1 [facility] 11-02-2022 08:05-0400 Body height 180.3 cm Tobias Enoc DO Work Phone: [facility] 11-02-2022 08:05-0400 Body weight 75.7 kg Tobias Enoc DO Work Phone: [facility] 11-02-2022 08:05-0400 Diastolic blood pressure 76 mm[Hg] Tobias Enoc DO Work Phone: [facility] 11-02-2022 08:05-0400 Heart rate 62 /min Tobias Enoc DO Work Phone: [facility] 11-02-2022 08:05-0400 SaO2% (BldA) [Mass fraction] 100 % Tobias Enoc DO Work Phone: [facility] 11-02-2022 08:05-0400 Systolic blood pressure 118 mm[Hg] Tobias Enoc DO Work Phone: [facility] 09-26-2022 13:09-0400 Body height 180.3 cm Catina WHITEHEADC Work Phone: [facility] 09-26-2022 13:09-0400 Body weight 77.11 kg Catina RG-C Work Phone: [facility] 09-26-2022 13:09-0400 Diastolic blood pressure 66 mm[Hg] Catina RG-C Work Phone: [facility] 09-26-2022 13:09-0400 Heart rate 67 /min Catina RG-C Work Phone: [facility] 09-26-2022 13:09-0400 SaO2% (BldA) [Mass fraction] 100 % Catina RG-C Work Phone: [facility] 09-26-2022 13:09-0400 Systolic blood pressure 107 mm[Hg] Catina RG-C Work Phone: [facility] 08-09-2022 07:55-0400 Body temperature 97.5 [degF] Tiffany Podlogar MANAGER DOMESTIC.[employer]GER [employer]CE Work Phone: [facility] 08-09-2022 07:55-0400 Body weight 77.66 kg Tiffany Bondlogaubrey MANAGER DOMESTIC.MANAGER [employer] Work Phone: [facility] 08-09-2022 07:55-0400 Diastolic blood pressure 78 mm[Hg] Tiffany Podlogar MANAGER DOMESTIC.MA[employer]GER [employer] Work Phone: [facility] 08-09-2022 07:55-0400 Heart rate 82 /min Tiffany Podlogar MANAGER DOMESTIC.MA[employer]GER [employer] Work Phone: [facility] 08-09-2022 07:55-0400 Respiratory rate 18 /min Tiffany Podlogar MANAGER DOMESTIC.MA[employer]GER [employer] Work Phone: [facility] 08-09-2022 07:55-0400 SaO2% (BldA) [Mass fraction] 99 % Tiffany Podlogar MANAGER DOMESTIC.MANAGER [employer] Work Phone: [facility] 08-09-2022 07:55-0400 Systolic blood pressure 118 mm[Hg] Tiffany Podlogar MANAGER DOMESTIC.MANAGER [employer] Work Phone: [facility] 03-09-2022 13:23-0500 Body height 180.3 cm Catina Lloyd PA-C Work Phone: [facility] 03-09-2022 13:23-0500 Body weight 84.37 kg Catina Lloyd PA-C Work Phone: [facility] 03-09-2022 13:23-0500 Diastolic blood pressure 57 mm[Hg] Catina RG-C Work Phone: [facility] 03-09-2022 13:23-0500 Heart rate 77 /min Catina Lloyd PA-C Work Phone: [facility] 03-09-2022 13:23-0500 SaO2% (BldA) [Mass fraction] 99 % Catina RG-C Work Phone: [facility] 03-09-2022 13:23-0500 Systolic blood pressure 109 mm[Hg] Catina Lloyd PA-C Work Phone: [facility] 03-09-2022 09:06-0500 Body weight 84.73 kg Nancy Daly MD Work Phone: [facility] 03-09-2022 09:06-0500 Diastolic blood pressure 72 mm[Hg] Nancy Daly MD Work Phone: [facility] 03-09-2022 09:06-0500 Heart rate 87 /min Nancy Daly MD Work Phone: [facility] 03-09-2022 09:06-0500 Respiratory rate 16 /min Nancy Daly MD Work Phone: [facility] 03-09-2022 09:06-0500 SaO2% (BldA) [Mass fraction] 98 % Nancy Daly MD Work Phone: [facility] 03-09-2022 09:06-0500 Systolic blood pressure 110 mm[Hg] Nancy Daly MD Work Phone: [facility] 11-01-2021 09:14-0400 Body height 180.3 cm Catina Lloyd PA-C Work Phone: [facility] 11-01-2021 09:14-0400 Body weight 78.34 kg Catina Lloyd PA-C Work Phone: [facility] 11-01-2021 09:14-0400 Diastolic blood pressure 61 mm[Hg] Catina Lloyd PA-C Work Phone: [facility] 11-01-2021 09:14-0400 Heart rate 59 /min Catina Lloyd PA-C Work Phone: [facility] 11-01-2021 09:14-0400 SaO2% (BldA) [Mass fraction] 100 % Catina Lloyd PA-C Work Phone: [facility] 11-01-2021 09:14-0400 Systolic blood pressure 107 mm[Hg] Catina Lloyd PA-C Work Phone: [facility] 10-10-2021 09:50-0400 Diastolic blood pressure 68 mm[Hg] Nancy Daly MD Work Phone: [facility] 10-10-2021 09:50-0400 Heart rate 76 /min Nancy Daly MD Work Phone: [facility] 10-10-2021 09:50-0400 Respiratory rate 16 /min Nancy Daly MD Work Phone: [facility] 10-10-2021 09:50-0400 SaO2% (BldA) [Mass fraction] 98 % Nancy Daly MD Work Phone: [facility] 10-10-2021 09:50-0400 Systolic blood pressure 122 mm[Hg] Nancy Daly MD Work Phone: [facility] 10-05-2021 08:19-0400 Body weight 77.56 kg Nancy Daly MD Work Phone: [facility] 10-05-2021 08:19-0400 Diastolic blood pressure 64 mm[Hg] Nancy Daly MD Work Phone: [facility] 10-05-2021 08:19-0400 Heart rate 85 /min Nancy Daly MD Work Phone: [facility] 10-05-2021 08:19-0400 Respiratory rate 18 /min Nancy Daly MD Work Phone: [facility] 10-05-2021 08:19-0400 SaO2% (BldA) [Mass fraction] 97 % Nancy Daly MD Work Phone: [facility] 10-05-2021 08:19-0400 Systolic blood pressure 106 mm[Hg] Nancy Daly MD Work Phone: [facility] 09-13-2021 16:06-0400 Body temperature 97.81 [degF] Beti Denbow PA-C Work Phone: [facility] 09-13-2021 16:06-0400 Body weight 76.2 kg Beti Denbow PA-C Work Phone: [facility] 09-13-2021 16:06-0400 Diastolic blood pressure 78 mm[Hg] Beti Denbow PA-C Work Phone: [facility] 09-13-2021 16:06-0400 Heart rate 88 /min Beti Denbow PA-C Work Phone: [facility] 09-13-2021 16:06-0400 Respiratory rate 16 /min Beti Bustamante PA-C Work Phone: [facility] 09-13-2021 16:06-0400 SaO2% (BldA) [Mass fraction] 97 % Beti Ascenciobow PA-C Work Phone: [facility] 09-13-2021 16:06-0400 Systolic blood pressure 128 mm[Hg] Beti Bustamante PA-C Work Phone: [facility] 07-11-2016 17:36-0400 BMI (Body Mass Index) 25.66 kg/m2 [facility] Work Phone: 07-11-2016 17:36-0400 Body Temperature 98.6 [degF] [facility] Work Phone: 07-11-2016 17:36-0400 BP Diastolic 58 mm[Hg] Anton[facility] Work Phone: 07-11-2016 17:36-0400 BP Systolic 112 mm[Hg] Anton[facility] Work Phone: 07-11-2016 17:36-0400 Height 180.34 cm Antonella [facility] Work Phone: 07-11-2016 17:36-0400 Pulse (Heart Rate) 60 /min [facility] Work Phone: 07-11-2016 17:36-0400 Respiratory Rate 12 /min Anton[facility] Work Phone: 07-11-2016 17:36-0400 Weight 83.46 kg Antonella [facility] Work Phone: Encounters Encounter Date Encounter Type Care Provider Facility Start: 02-19-2023 End: 02-19-2023 ambulatory TOBIAS STUBBS Facility:[facility] Start: 02-19-2023 End: 02-19-2023 Patient encounter procedure [facility]bs DO [facility] Procedures Date Procedure Procedure Detail Performing Clinician Start: 11-08-2022 Antibody screen MIGUEL DALY Plan of Treatment Date Care Activity Detail Author Start: 06-27-2032 Urine microalbumin profile DTaP,Tdap,Td Vaccine (9 - Td or Tdap) [facility] Start: 09-18-2026 Urine microalbumin profile [facility] Start: 11-09-2022 Influenza vaccination [facility] Start: 11-08-2022 End: 01-08-2023 CONFIRM BLOOD TYPE [facility] Work Phone: Immunizations Immunization Date Immunization Notes Care Provider Laurence garcia 03-28-2021 influenza virus vacc ine, unspecified formulation Tobias tSubbs DO Work Phone: [facility] 09-18-2016 pneumococcal polysaccharide vaccine, 23 valent Beti Denbow PA-C Work Phone: [facility] 09-18-2016 tetanus toxoid, redu fouzia diphtheria toxoid, and acellular pertussis vaccine, adsorbed Beti Denbow PA-C Work Phone: [facility] 01-22-2006 Chicken Pox (disease) Beti Denbow PA-C Work Phone: [facility] 01-22-2006 Meningococcal, MCV4, unspecified conjugate formulation(groups A, C, Y and W-135) Beti Denbow PA-C Work Phone: [facility] Work Phone: 08-21-2004 diphtheria and tetan us toxoids, adsorbed for pediatric use Beti Denbow PA-C Work Phone: [facility] 05-16-2004 hepatitis B vaccine, pediatric or pediatric/adolescent dosage Beti Denbow PA-C Work Phone: [facility] 08-21-2002 hepatitis B vaccine, pediatric or pediatric/adolescent dosage Beti Denbow PA-C Work Phone: [facility] 08-21-2002 measles, mumps and rubella virus vaccine Beti Denbow PA-C Work Phone: [facility] 06-11-2000 hepatitis B vaccine, pediatric or pediatric/adolescent dosage Beti Denbow PA-C Work Phone: [facility] 11-02-1994 diphtheria, tetanus toxoids and acellular pertussis vaccine Beti Denbow PA-C Work Phone: [facility] 11-02-1994 poliovirus vaccine, inactivated Beti Denbow PA-C Work Phone: [facility] 11-09-1993 diphtheria, tetanus toxoids and acellular pertussis vaccine Beti Denbow PA-C Work Phone: [facility] 02-09-1993 diphtheria, tetanus toxoids and pertussis vaccine Beti Denbow PA-C Work Phone: [facility] 02-09-1993 poliovirus vaccine, inactivated Beti Denbow PA-C Work Phone: [facility] 05-14-1991 diphtheria, tetanus toxoids and pertussis vaccine Beti Denbow PA-C Work Phone: [facility] 05-14-1991 haemophilus influenz ae type b vaccine, HbOC conjugate Beti Denbow PA-C Work Phone: [facility] 05-14-1991 measles, mumps and rubella virus vaccine Beti Denbow PA-C Work Phone: [facility] 05-14-1991 poliovirus vaccine, inactivated Beti Denbow PA-C Work Phone: [facility] 1990 diphtheria, tetanus toxoids and pertussis vaccine Beti Denbow PA-C Work Phone: [facility] 1990 haemophilus influenz ae type b vaccine, HbOC conjugate Beti Denbow PA-C Work Phone: [facility] 1990 poliovirus vaccine, inactivated Beti Denbow PA-C Work Phone: [facility] Payers Date Payer Category Payer Unknown [id number] 2020 Unknown [facility] [employer] INSURED [id number] 2020-Present [phone] [address] [place] [address] PPO [id number] 2020 Unknown [id number] 2020 Unknown [id number] 2013 Medicaid [place] [employer] [place] [employer] [id number] 2013-Present [phone] [address] [place] [address] Medicaid [id number] 2013 Medicaid [id number] 2013 Medicaid [id number] Social History Date Type Detail Facility Start: 11-01-2021 End: 11-08-2022 Tobacco smoking status NHIS Smokes tobacco daily [facility] Work Phone: History of tobacco use Cigarette Smoker [facility] Work Phone: End: 09-18-2008 History of tobacco use Chews Tobacco [facility] Work Phone: Start: 09-13-2021 End: 02-19-2023 Alcohol intake Current drinker of alcohol (finding) [facility] Start: 09-18-2016 History SDOH Alcohol Comment rarely [facility] Start: 1990 Sex Assigned At Male [facility] Start: 09-23-2021 End: 11-01-2021 Exposure to SARS-CoV-2 (event) Not sure [facility] Start: 11-01-2021 End: 07-26-2022 Cigarettes smoked current (pack per day) - Reported 0.5 [facility] Start: 11-01-2021 End: 11-08-2022 Tobacco use and exposure Former smokeless tobacco user [facility] Start: 07-26-2022 End: 09-26-2022 Tobacco use panel [facility] Adult Depression Screening Assessment 5 [facility] Start: 04-03-2019 Gender identity Identifies as male gender (finding) [facility] Start: 04-03-2019 Sexual orientation Heterosexual (lilo gatito) [facility] Start: 10-02-2022 Tobacco smoking stat us NHIS Occasional tobacco smoker [facility] Clinical Notes 09-13-2021 to 02-19-2023 Tobias Stubbs, - 02/19/2023 7:15 AM Tobias Higuera, - 01/08/2023 7:15 AM Tobias Barriga, - 11/30/2022 8:45 AM Raya Meier APRN.MANAGER [employer]ODUCE - 11/08/2022 8:00 AM EDT Note Date & Type Note Facility 02-19-2023 Note HNO ID: [id number] Author: Tobias Stubbs DO Service: ? Author Type: Physician Type: Progress Notes Filed: 02/19/2023 7:57 AM Note Text: Tobias Stubbs DO [facility] - Orthopedic Spine Surgeon [address] [facility] [place], [facility] [address] [place] [address] Phone: [phone] ([phone]) FAX: [phone] SPINE SURGERY POST-OP FOLLOW UP SERVICE DATE: 02/19/2023 SURGERY DATE: 11/15/2022 SURGERY: Left L4-5 hemilaminectomy and discectomy PREOPERATIVE SYMPTOMS: severe left leg Kate Wharton JrNiko is seen for 3 month post operative follow up. At his last visit on 01/08/2023 he presented for his 6 week post operative visit. He noted he was doing well. He noted one episode of bending forward to tie his shoe and felt a pull to his right low back. He noted resolution of his left leg symptoms. He denied any weakness. He noted he was trying to follow his restrictions, but was back to work and twisting, lifting and bending. He was not taking anything for pain. He was very pleased with his surgery. It was discussed he needed to continue with no bending, lifting or twisting. He was to follow up in 6 weeks, prompting his visit today. Today he states he has been doing well since his last visit. 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 He notes with sitting he notes numbness at times to his posterior thigh to the ankle. He notes numbness and tingling at times into his toes bilaterally with prolonged sitting. He notes taking tylenol at times. He denies any falls. He denies any weakness. He is very happy with the surgical outcome. He presents for evaluation and plan of care. INCISION: healed PREVIOUS SURGERY: None Review of Systems Constitutional: Negative for diaphoresis, fatigue and fever. HENT: Negative for congestion, sinus pressure and sore throat. Eyes: Negative for discharge and itching. Respiratory: Negative for cough, chest tightness and shortness of breath. Cardiovascular: Negative for chest pain, palpitations and leg swelling. Gastrointestinal: Negative for constipation, diarrhea, nausea and vomiting. Endocrine: Negative for cold intolerance and heat intolerance. Genitourinary: Negative for difficulty urinating, frequency and urgency. Musculoskeletal: Negative for back pain, gait problem, neck pain and neck stiffness. Skin: Negative for rash and wound. Allergic/Immunologic: Negative for environmental allergies and food allergies. Neurological: Negative for dizziness, weakness, light-headedness, numbness and headaches. Hematological: Does not bruise/bleed easily. Psychiatric/Behavioral: Negative for agitation. The patient is not nervous/anxious. ALLERGIES No Known Allergies Current Outpatient Medications Medication Sig Dispense Refill acetaminophen (TYLENOL) 325 mg tablet Take 650 mg by mouth every 6 hours as needed. hydrOXYzine HCl (ATARAX) 25 mg tablet Take 1-2 tablets by mouth every 4 hours as needed for itching/rash. 30 tablet 0 No current facility-administered medications for this visit. OBJECTIVE: BP 112/75 (BP Site: Left Arm, BP Position: Sitting, BP Cuff Size: Large Adult) Pulse 72 Resp 16 Ht 5' 11 (1.803 m) Wt 167 lb 15.9 oz (76.2 kg) SpO2 100% BMI 23.43 kg/m? PHYSICAL EXAM GENERAL APPEARANCE: Well nourished, well developed, and no apparent distress. NEURO PSYCH: Patient oriented to person, place, and time. Mood pleasant. Benign affect. CARDIOVASCULAR: Palpable pulses. No edema noted. No varicosities. SKIN: Head, neck, trunk, and extremities dry, intact and without lesions. LYMPHATICS: No palpable nodes in cervical or axillae areas. Groin exam deferred MUSCULOSKELETAL PALPATION: SPINOUS PROCESS: No pain. PARASPINALS: No pain. MUSCLE TONE and BULK: Symmetrical in the lower extremities. MOTOR: Left Right Lower Extremity Hip Flexors 5/5 5/5 Quadriceps 5/5 5/5 Dorsiflexion 5/5 5/5 EHL/EDC 5/5 5/5 Plantar Flexion 5/5 5/5 SENSORY: Sensation intact to light touch L1-S1 GAIT: Able to perform toe and heel walk. Able to perform tandem gait. LONG TRACT SIGNS: No clonus. REFLEXES: symmetric non-brisk WOUND ASSESSMENT: Healed ASSESSMENT/PLAN Kate Wharton Jr. is a 33-year-old male who is 3 months status post left hemilaminectomy discectomy at L4-5 -He is doing great today. He is very happy with his surgical outcome. All of his pain is gone. He is at the 3-month cinthia from surgery. I will see the patient back as needed. Advised to call the office if develops any new or worsening symptoms. The following portions of the patient's history were reviewed, confirmed, and updated as necessary: allergies, current medications, past family history, past medical history, past social history, past surgical history, problem list, HPI, and ROS obtained by others. Some elements may be copied from a previous office (more content not included)... [facility] 02-19-2023 History of Present illness Narrative Images from the original note were not included. Tobias Stubbs DO [facility] - Orthopedic Spine Surgeon [address] [facility] [id number] [address] [place] [id number] Phone: [phone] ([phone] FAX: [phone] SPINE SURGERY POST-OP FOLLOW UP SERVICE DATE: 02/19/2023 SURGERY DATE: 11/15/2022 SURGERY: Left L4-5 hemilaminectomy and discectomy PREOPERATIVE SYMPTOMS: severe left leg Kate Wharton Jr. is seen for 3 month post operative follow up. At his last visit on 01/08/2023 he presented for his 6 week post operative visit. He noted he was doing well. He noted one episode of bending forward to tie his shoe and felt a pull to his right low back. He noted resolution of his left leg symptoms. He denied any weakness. He noted he was trying to follow his restrictions, but was back to work and twisting, lifting and bending. He was not taking anything for pain. He was very pleased with his surgery. It was discussed he needed to continue with no bending, lifting or twisting. He was to follow up in 6 weeks, prompting his visit today. Today he states he has been doing well since his last visit. 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 He notes with sitting he notes numbness at times to his posterior thigh to the ankle. He notes numbness and tingling at times into his toes bilaterally with prolonged sitting. He notes taking tylenol at times. He denies any falls. He denies any weakness. He is very happy with the surgical outcome. He presents for evaluation and plan of care. INCISION: healed PREVIOUS SURGERY: None Review of Systems Constitutional: Negative for diaphoresis, fatigue and fever. HENT: Negative for congestion, sinus pressure and sore throat. Eyes: Negative for discharge and itching. Respiratory: Negative for cough, chest tightness and shortness of breath. Cardiovascular: Negative for chest pain, palpitations and leg swelling. Gastrointestinal: Negative for constipation, diarrhea, nausea and vomiting. Endocrine: Negative for cold intolerance and heat intolerance. Genitourinary: Negative for difficulty urinating, frequency and urgency. Musculoskeletal: Negative for back pain, gait problem, neck pain and neck stiffness. Skin: Negative for rash and wound. Allergic/Immunologic: Negative for environmental allergies and food allergies. Neurological: Negative for dizziness, weakness, light-headedness, numbness and headaches. Hematological: Does not bruise/bleed easily. Psychiatric/Behavioral: Negative for agitation. The patient is not nervous/anxious. ALLERGIES No Known Allergies Current Outpatient Medications Medication Sig Dispense Refill acetaminophen (TYLENOL) 325 mg tablet Take 650 mg by mouth every 6 hours as needed. hydrOXYzine HCl (ATARAX) 25 mg tablet Take 1-2 tablets by mouth every 4 hours as needed for itching/rash. 30 tablet 0 No current facility-administered medications for this visit. OBJECTIVE: BP 112/75 (BP Site: Left Arm, BP Position: Sitting, BP Cuff Size: Large Adult) Pulse 72 Resp 16 Ht 5' 11 (1.803 m) Wt 167 lb 15.9 oz (76.2 kg) SpO2 100% BMI 23.43 kg/m PHYSICAL EXAM GENERAL APPEARANCE: Well nourished, well developed, and no apparent distress. NEURO PSYCH: Patient oriented to person, place, and time. Mood pleasant. Benign affect. CARDIOVASCULAR: Palpable pulses. No edema noted. No varicosities. SKIN: Head, neck, trunk, and extremities dry, intact and without lesions. LYMPHATICS: No palpable nodes in cervical or axillae areas. Groin exam deferred MUSCULOSKELETAL PALPATION: SPINOUS PROCESS: No pain. PARASPINALS: No pain. MUSCLE TONE and BULK: Symmetrical in the lower extremities. MOTOR: Left Right Lower Extremity Hip Flexors 5/5 5/5 Quadriceps 5/5 5/5 Dorsiflexion 5/5 5/5 EHL/EDC 5/5 5/5 Plantar Flexion 5/5 5/5 SENSORY: Sensation intact to light touch L1-S1 GAIT: Able to perform toe and heel walk. Able to perform tandem gait. LONG TRACT SIGNS: No clonus. REFLEXES: symmetric non-brisk WOUND ASSESSMENT: Healed ASSESSMENT/PLAN Kate Wharton Jr. is a 33-year-old male who is 3 months status post left hemilaminectomy discectomy at L4-5 -He is doing great today. He is very happy with his surgical outcome. All of his pain is gone. He is at the 3-month cinthia from surgery. I will see the patient back as needed. Advised to call the office if develops any new or worsening symptoms. The following portions of the patient's history were reviewed, confirmed, and updated as necessary: allergies, current medications, past family history, past medical history, past social history, past surgical history, problem list, HPI, and ROS obtained by others. Some elements may be copied from a previous office note and have been reviewed/updated where appropriate. All portions reflect current medical decision making from today. The clinical and radiographic findings as well as the risks, benefits and alternatives of treatment have been reviewed in detail with the patient. Advised to call the office if symptoms worsen or new symptoms develop. Patient expressed understanding and is in agreement with plan. Tobias Stubbs DO This note was partially generated using [employer] voice recognition system, and there may be some incorrect words, spellings, and punctuation that were not noted in checking the note before saving. documented in this encounter [facility] 01-08-2023 Note HNO ID: [id number] Author: Tobias Stubbs DO Service: ? Author Type: Physician Type: Progress Notes Filed: 01/08/2023 7:31 AM Note Text: Tobias Stubbs DO [facility] - Orthopedic Spine Surgeon [address] [facility] [address] [place] [address] Phone: [phone] FAX: [phone] SPINE SURGERY POST-OP FOLLOW UP SERVICE DATE: 01/01/2023 SURGERY DATE: 11/15/2022 SURGERY: Left L4-5 hemilaminectomy and discectomy PREOPERATIVE SYMPTOMS: severe left leg Kate Wharton Jr. is seen for 6 week post operative follow up. He was last evaluated in the office on 11/30/2022 for his 1st post operative visit. He noted he was doing great. He noted low back pain that was incisional at times. He noted resolution of his left leg pain and numbness/tingling. He noted numbness to the right leg at times with sitting. He noted resolution of his weakness. He was very pleased with his surgery. It was recommended that he continue with no bending, lifting and twisting. He was to follow up in 4 weeks, prompting his visit today. Today he states he has been doing well since his last visit. He notes one episode where he bent forward to tie his shoe and felt a pull to his right low back. He notes his left leg symptoms have completely resolved. He denies any weakness, falls, loss of bowel or bladder. He notes he has been trying to follow his restrictions, but he has since been back to work and twisting, lifting and bending. He denies taking anything for pain at this time. Overall, he is very pleased with his surgery. Denies any signs of infection. He presents for evaluation and plan of care. INCISION: healed PREVIOUS SURGERY: None Review of Systems Constitutional: Negative for diaphoresis, fatigue and fever. HENT: Negative for congestion, sinus pressure and sore throat. Eyes: Negative for discharge and itching. Respiratory: Negative for cough, chest tightness and shortness of breath. Cardiovascular: Negative for chest pain, palpitations and leg swelling. Gastrointestinal: Negative for constipation, diarrhea, nausea and vomiting. Endocrine: Negative for cold intolerance and heat intolerance. Genitourinary: Negative for difficulty urinating, frequency and urgency. Musculoskeletal: Positive for back pain. Negative for gait problem, neck pain and neck stiffness. Skin: Negative for rash and wound. Allergic/Immunologic: Negative for environmental allergies and food allergies. Neurological: Positive for numbness. Negative for dizziness, weakness, light-headedness and headaches. Hematological: Does not bruise/bleed easily. Psychiatric/Behavioral: Negative for agitation. The patient is not nervous/anxious. ALLERGIES No Known Allergies Current Outpatient Medications Medication Sig Dispense Refill acetaminophen (TYLENOL) 325 mg tablet Take 650 mg by mouth every 6 hours as needed. hydrOXYzine HCl (ATARAX) 25 mg tablet Take 1-2 tablets by mouth every 4 hours as needed for itching/rash. 30 tablet 0 No current facility-administered medications for this visit. OBJECTIVE: BP 101/69 (BP Site: Left Arm, BP Position: Sitting, BP Cuff Size: Large Adult) Pulse 76 Resp 16 Ht 5' 11 (1.803 m) Wt 172 lb 9.9 oz (78.3 kg) SpO2 100% BMI 24.08 kg/m? PHYSICAL EXAM GENERAL APPEARANCE: Well nourished, well developed, and no apparent distress. NEURO PSYCH: Patient oriented to person, place, and time. Mood pleasant. Benign affect. CARDIOVASCULAR: Palpable pulses. No edema noted. No varicosities. SKIN: Head, neck, trunk, and extremities dry, intact and without lesions. LYMPHATICS: No palpable nodes in cervical or axillae areas. Groin exam deferred MUSCULOSKELETAL PALPATION: SPINOUS PROCESS: No pain. PARASPINALS: No pain. MUSCLE TONE and BULK: Symmetrical in the lower extremities. MOTOR: Left Right Lower Extremity Hip Flexors 5/5 5/5 Quadriceps 5/5 5/5 Dorsiflexion 5/5 5/5 EHL/EDC 5/5 5/5 Plantar Flexion 5/5 5/5 SENSORY: Sensation intact to light touch L1-S1 GAIT: Able to perform toe and heel walk. Able to perform tandem gait. LONG TRACT SIGNS: No clonus. REFLEXES: symmetric non-brisk WOUND ASSESSMENT: Healed ASSESSMENT/PLAN Kate Savannah Wharton Jr. is a 32-year-old male who is 6-week status post left hemilaminectomy and discectomy at L4-5. -I long talk today with the patient. He is doing great from the surgery. He is very happy with his surgical outcome. All of his pain is gone. His back is well-healed. We again discussed the no bending lifting twisting restrictions at work. He states that he will attempt to do this. I will see the patient back in 6 weeks for 3-month appointment. The following portions of the patient's history were reviewed, confirmed, and updated as necessary: allergies, current medications, past family history, past medical history, past social history, pas (more content not included)... [facility] 01-08-2023 History of Present illness Narrative Images from the original note were not included. Tobias Stubbs, [facility] - Orthopedic Spine Surgeon [address], [facility] [address] [place] [address] Phone: [phone] ([phone] FAX: [phone] SPINE SURGERY POST-OP FOLLOW UP SERVICE DATE: 01/01/2023 SURGERY DATE: 11/15/2022 SURGERY: Left L4-5 hemilaminectomy and discectomy PREOPERATIVE SYMPTOMS: severe left leg Kate Nuñez English Grace is seen for 6 week post operative follow up. He was last evaluated in the office on 11/30/2022 for his 1st post operative visit. He noted he was doing great. He noted low back pain that was incisional at times. He noted resolution of his left leg pain and numbness/tingling. He noted numbness to the right leg at times with sitting. He noted resolution of his weakness. He was very pleased with his surgery. It was recommended that he continue with no bending, lifting and twisting. He was to follow up in 4 weeks, prompting his visit today. Today he states he has been doing well since his last visit. He notes one episode where he bent forward to tie his shoe and felt a pull to his right low back. He notes his left leg symptoms have completely resolved. He denies any weakness, falls, loss of bowel or bladder. He notes he has been trying to follow his restrictions, but he has since been back to work and twisting, lifting and bending. He denies taking anything for pain at this time. Overall, he is very pleased with his surgery. Denies any signs of infection. He presents for evaluation and plan of care. INCISION: healed PREVIOUS SURGERY: None Review of Systems Constitutional: Negative for diaphoresis, fatigue and fever. HENT: Negative for congestion, sinus pressure and sore throat. Eyes: Negative for discharge and itching. Respiratory: Negative for cough, chest tightness and shortness of breath. Cardiovascular: Negative for chest pain, palpitations and leg swelling. Gastrointestinal: Negative for constipation, diarrhea, nausea and vomiting. Endocrine: Negative for cold intolerance and heat intolerance. Genitourinary: Negative for difficulty urinating, frequency and urgency. Musculoskeletal: Positive for back pain. Negative for gait problem, neck pain and neck stiffness. Skin: Negative for rash and wound. Allergic/Immunologic: Negative for environmental allergies and food allergies. Neurological: Positive for numbness. Negative for dizziness, weakness, light-headedness and headaches. Hematological: Does not bruise/bleed easily. Psychiatric/Behavioral: Negative for agitation. The patient is not nervous/anxious. ALLERGIES No Known Allergies Current Outpatient Medications Medication Sig Dispense Refill acetaminophen (TYLENOL) 325 mg tablet Take 650 mg by mouth every 6 hours as needed. hydrOXYzine HCl (ATARAX) 25 mg tablet Take 1-2 tablets by mouth every 4 hours as needed for itching/rash. 30 tablet 0 No current facility-administered medications for this visit. OBJECTIVE: BP 101/69 (BP Site: Left Arm, BP Position: Sitting, BP Cuff Size: Large Adult) Pulse 76 Resp 16 Ht 5' 11 (1.803 m) Wt 172 lb 9.9 oz (78.3 kg) SpO2 100% BMI 24.08 kg/m PHYSICAL EXAM GENERAL APPEARANCE: Well nourished, well developed, and no apparent distress. NEURO PSYCH: Patient oriented to person, place, and time. Mood pleasant. Benign affect. CARDIOVASCULAR: Palpable pulses. No edema noted. No varicosities. SKIN: Head, neck, trunk, and extremities dry, intact and without lesions. LYMPHATICS: No palpable nodes in cervical or axillae areas. Groin exam deferred MUSCULOSKELETAL PALPATION: SPINOUS PROCESS: No pain. PARASPINALS: No pain. MUSCLE TONE and BULK: Symmetrical in the lower extremities. MOTOR: Left Right Lower Extremity Hip Flexors 5/5 5/5 Quadriceps 5/5 5/5 Dorsiflexion 5/5 5/5 EHL/EDC 5/5 5/5 Plantar Flexion 5/5 5/5 SENSORY: Sensation intact to light touch L1-S1 GAIT: Able to perform toe and heel walk. Able to perform tandem gait. LONG TRACT SIGNS: No clonus. REFLEXES: symmetric non-brisk WOUND ASSESSMENT: Healed ASSESSMENT/PLAN Kate Wharton Jr. is a 32-year-old male who is 6-week status post left hemilaminectomy and discectomy at L4-5. -I long talk today with the patient. He is doing great from the surgery. He is very happy with his surgical outcome. All of his pain is gone. His back is well-healed. We again discussed the no bending lifting twisting restrictions at work. He states that he will attempt to do this. I will see the patient back in 6 weeks for 3-month appointment. The following portions of the patient's history were reviewed, confirmed, and updated as necessary: allergies, current medications, past family history, past medical history, past social history, past surgical history, problem list, HPI, and ROS obtained by others. Some elements may be copied from a previous office note and have been reviewed/updated where appropriate. All portions reflect current medical decision making from today. The clinical and radiographic findings as well as the risks, benefits and alternatives of treatment have been reviewed in detail with the patient. Advised to call the office if symptoms worsen or new symptoms develop. Patient expressed understanding and is in agreement with plan. Tobias Stubbs DO This note was partially generated using [employer] voice recognition system, and there may be some incorrect words, spellings, and punctuation that were not noted in checking the note before saving. documented in this encounter [facility] 11-30-2022 Note HNO ID: [id number] Author: Tobias Stubbs DO Service: ? Author Type: Physician Type: Progress Notes Filed: 11/30/2022 9:13 AM Note Text: Tobias Stubbs DO [facility] - Orthopedic Spine Surgeon [address] [place] [address] [address] [facility] [place] [address] Phone: [phone] ([phone] FAX: [phone] SPINE SURGERY POST-OP FOLLOW UP SERVICE DATE: 11/30/2022 SURGERY DATE: 11/15/2022 SURGERY: Left L4-5 hemilaminectomy and discectomy PREOPERATIVE SYMPTOMS: severe left leg pain Kate Wharton is seen for 1 st post operative follow up. Today he states he has been doing great since surgery. He notes he feels like a new man . He notes his low back pain is just incisional at this time. He denies taking anything for pain. He notes the left leg pain and numbness and tingling has since resolved. He notes only with sitting today right lower extremity numbness. He notes his weakness has since resolved. Denies any fevers denies any drainage. States that he is very happy with his surgery. He presents for evaluation and plan of care. PREVIOUS SURGERY: None Review of Systems Constitutional: Negative for diaphoresis, fatigue and fever. HENT: Negative for congestion, sinus pressure and sore throat. Eyes: Negative for discharge and itching. Respiratory: Negative for cough, chest tightness and shortness of breath. Cardiovascular: Negative for chest pain, palpitations and leg swelling. Gastrointestinal: Negative for constipation, diarrhea, nausea and vomiting. Endocrine: Negative for cold intolerance and heat intolerance. Genitourinary: Negative for difficulty urinating, frequency and urgency. Musculoskeletal: Positive for back pain. Negative for gait problem, neck pain and neck stiffness. Skin: Negative for rash and wound. Allergic/Immunologic: Negative for environmental allergies and food allergies. Neurological: Positive for numbness. Negative for dizziness, weakness, light-headedness and headaches. Hematological: Does not bruise/bleed easily. Psychiatric/Behavioral: Negative for agitation. The patient is not nervous/anxious. ALLERGIES No Known Allergies Current Outpatient Medications Medication Sig Dispense Refill acetaminophen (TYLENOL) 325 mg tablet Take 650 mg by mouth every 6 hours as needed. hydrOXYzine HCl (ATARAX) 25 mg tablet Take 1-2 tablets by mouth every 4 hours as needed for itching/rash. 30 tablet 0 No current facility-administered medications for this visit. OBJECTIVE: BP 107/66 (BP Site: Left Arm, BP Position: Sitting, BP Cuff Size: Regular Adult) Pulse 69 Resp 16 Ht 5' 11 (1.803 m) Wt 172 lb 6.4 oz (78.2 kg) SpO2 100% BMI 24.04 kg/m? PHYSICAL EXAM GENERAL APPEARANCE: Well nourished, well developed, and no apparent distress. NEURO PSYCH: Patient oriented to person, place, and time. Mood pleasant. Benign affect. CARDIOVASCULAR: Palpable pulses. No edema noted. No varicosities. SKIN: Head, neck, trunk, and extremities dry, intact and without lesions. LYMPHATICS: No palpable nodes in cervical or axillae areas. Groin exam deferred MUSCULOSKELETAL PALPATION: SPINOUS PROCESS: No pain. PARASPINALS: No pain. MUSCLE TONE and BULK: Symmetrical in the lower extremities. MOTOR: Left Right Lower Extremity Hip Flexors 5/5 5/5 Quadriceps 5/5 5/5 Dorsiflexion 5/5 5/5 EHL/EDC 5/5 5/5 Plantar Flexion 5/5 5/5 SENSORY: Sensation intact to light touch L1-S1 GAIT: Able to perform toe and heel walk. Able to perform tandem gait. LONG TRACT SIGNS: No clonus. REFLEXES: symmetric non-brisk WOUND ASSESSMENT: Incision healing ASSESSMENT/PLAN Kate Wharton is a 32-year-old male who is 2-week status post left hemilaminectomy and discectomy at L4-5 -I had a long talk today with the patient. He is doing great since surgery. He is very happy. All of his pain is gone. He has no signs of infection. I will see the patient back in 4 weeks for his 6-week appointment. Again advised no bending lifting twisting. The following portions of the patient's history were reviewed, confirmed, and updated as necessary: allergies, current medications, past family history, past medical history, past social history, past surgical history, problem list, HPI, and ROS obtained by others. Some elements may be copied from a previous office note and have been reviewed/updated where appropriate. All portions reflect current medical decision making from today. The clinical and radiographic findings as well as the risks, benefits and alternatives of treatment have been reviewed in detail with the patient. Advised to call the office if symptoms worsen or new symptoms develop. Patient expressed understanding and is in agreement with plan. Tobias Stubbs, DO This note was partially generated using [employer] recognition system, and there may be some incorrect words, spellings, and p (more content not included)... [facility] 11-30-2022 History of Present illness Narrative Images from the original note were not included. Tobias Stubbs DO [facility] - Orthopedic Spine Surgeon [address] [facility] [address] [address] [place] [address] Phone: [phone] FAX: [phone] SPINE SURGERY POST-OP FOLLOW UP SERVICE DATE: 11/30/2022 SURGERY DATE: 11/15/2022 SURGERY: Left L4-5 hemilaminectomy and discectomy PREOPERATIVE SYMPTOMS: severe left leg pain Kate Wharton is seen for 1 st post operative follow up. Today he states he has been doing great since surgery. He notes he feels like a new man . He notes his low back pain is just incisional at this time. He denies taking anything for pain. He notes the left leg pain and numbness and tingling has since resolved. He notes only with sitting today right lower extremity numbness. He notes his weakness has since resolved. Denies any fevers denies any drainage. States that he is very happy with his surgery. He presents for evaluation and plan of care. PREVIOUS SURGERY: None Review of Systems Constitutional: Negative for diaphoresis, fatigue and fever. HENT: Negative for congestion, sinus pressure and sore throat. Eyes: Negative for discharge and itching. Respiratory: Negative for cough, chest tightness and shortness of breath. Cardiovascular: Negative for chest pain, palpitations and leg swelling. Gastrointestinal: Negative for constipation, diarrhea, nausea and vomiting. Endocrine: Negative for cold intolerance and heat intolerance. Genitourinary: Negative for difficulty urinating, frequency and urgency. Musculoskeletal: Positive for back pain. Negative for gait problem, neck pain and neck stiffness. Skin: Negative for rash and wound. Allergic/Immunologic: Negative for environmental allergies and food allergies. Neurological: Positive for numbness. Negative for dizziness, weakness, light-headedness and headaches. Hematological: Does not bruise/bleed easily. Psychiatric/Behavioral: Negative for agitation. The patient is not nervous/anxious. ALLERGIES No Known Allergies Current Outpatient Medications Medication Sig Dispense Refill acetaminophen (TYLENOL) 325 mg tablet Take 650 mg by mouth every 6 hours as needed. hydrOXYzine HCl (ATARAX) 25 mg tablet Take 1-2 tablets by mouth every 4 hours as needed for itching/rash. 30 tablet 0 No current facility-administered medications for this visit. OBJECTIVE: BP 107/66 (BP Site: Left Arm, BP Position: Sitting, BP Cuff Size: Regular Adult) Pulse 69 Resp 16 Ht 5' 11 (1.803 m) Wt 172 lb 6.4 oz (78.2 kg) SpO2 100% BMI 24.04 kg/m PHYSICAL EXAM GENERAL APPEARANCE: Well nourished, well developed, and no apparent distress. NEURO PSYCH: Patient oriented to person, place, and time. Mood pleasant. Benign affect. CARDIOVASCULAR: Palpable pulses. No edema noted. No varicosities. SKIN: Head, neck, trunk, and extremities dry, intact and without lesions. LYMPHATICS: No palpable nodes in cervical or axillae areas. Groin exam deferred MUSCULOSKELETAL PALPATION: SPINOUS PROCESS: No pain. PARASPINALS: No pain. MUSCLE TONE and BULK: Symmetrical in the lower extremities. MOTOR: Left Right Lower Extremity Hip Flexors 5/5 5/5 Quadriceps 5/5 5/5 Dorsiflexion 5/5 5/5 EHL/EDC 5/5 5/5 Plantar Flexion 5/5 5/5 SENSORY: Sensation intact to light touch L1-S1 GAIT: Able to perform toe and heel walk. Able to perform tandem gait. LONG TRACT SIGNS: No clonus. REFLEXES: symmetric non-brisk WOUND ASSESSMENT: Incision healing ASSESSMENT/PLAN Kate Wharton is a 32-year-old male who is 2-week status post left hemilaminectomy and discectomy at L4-5 -I had a long talk today with the patient. He is doing great since surgery. He is very happy. All of his pain is gone. He has no signs of infection. I will see the patient back in 4 weeks for his 6-week appointment. Again advised no bending lifting twisting. The following portions of the patient's history were reviewed, confirmed, and updated as necessary: allergies, current medications, past family history, past medical history, past social history, past surgical history, problem list, HPI, and ROS obtained by others. Some elements may be copied from a previous office note and have been reviewed/updated where appropriate. All portions reflect current medical decision making from today. The clinical and radiographic findings as well as the risks, benefits and alternatives of treatment have been reviewed in detail with the patient. Advised to call the office if symptoms worsen or new symptoms develop. Patient expressed understanding and is in agreement with plan. Tobias Stubbs DO This note was partially generated using LOAG voice recognition system, and there may be some incorrect words, spellings, and punctuation that were not noted in checking the note before saving. documented in this encounter [facility] 11-15-2022 Note HNO ID: [id number] Author: Ana Rod APRN.TIE IN MACHINE OPERATOR Service: Anesthesiology Author Type: Nurse Informatics Manager Type: Anesthesia Procedure Notes Filed: 11/15/2022 12:56 PM Note Text: ANESTHESIOLOGY PROCEDURE NOTE Airway General Information Procedure Start Time/Medication Administration: 11/15/2022 12:34 PM Patient location during procedure: OR Patient identity confirmed: arm band Staffing Anesthesiologist: Hood Michael DO TIE IN MACHINE OPERATOR: Ana Rod APRN.TIE IN MACHINE OPERATOR Performed by: TIE IN MACHINE OPERATOR Indications and Patient Condition Indications for airway management: anesthesia Preoxygenated: yes anesthesia circuit Patient position: sniffing Method: asleep Cricoid Pressure: Yes Manual In-Line Stabilization: No Difficult Mask: No Airway Accessory: oral airway (100 mm) Final Airway Details Final airway type: endotracheal airway Final Endotracheal Airway: ETT Cuffed: yes Successful intubation technique: direct laryngoscopy Devices used: intubating stylet Endotracheal tube insertion site: oral Blade: Nini Blade size: #4 ETT size (mm): 7.5 Measured from: lips Measurement (cm): 23 Placement verified by: capnometry Cormack-Lehane Classification: grade I - full view of glottis Number of attempts at approach: 1 Airway trauma: none. Failed airway: no Unrecognized esophageal intubation: no Airway not difficult SIGNATURE: Ana Rod APRN.TIE IN MACHINE OPERATOR PATIENT NAME: Kate Wharton Jr. DATE: November 15, 2022 TIME: 12:55 PM CSN: [id number] [facility] 11-13-2022 Miscellaneous Notes Reviewed. Forms completed and placed in my outbox. Patient calls back and states that he has had no complication, no new symptoms, and exercise tolerance is normal. Patient cancelled office visit today. Patient asking for documentation to be sent to orthopedics in regards to clearing patient for surgery. Elenita Drake RN Phoned patient and message left for him to either address his [employer] message or return call so he can review provider's message. [employer] message sent to pt with Provider response below, due to pt asking to be contacted via [employer]. Will wait pt response and route to Provider. Glenys Saavedra Ma Looks like labs and EKG were normal. Vital signs were normal. ROS at his OV with ortho was also normal. Please contact patient to confirm no complications with anesthesia in the past. Also need to know functional capacity such as ability to climb flight of stairs or scrub floors/move furniture. If no complications, no new symptoms, and exercise tolerance is normal then I can clear him without OV today. documented in this encounter [facility] 11-09-2022 Note HNO ID: [id number] Author: Raya Boswell APRN.MANAGER PRODUCE Service: ? Author Type: Nurse Practitioner Type: Progress Notes Filed: 11/09/2022 7:28 AM Note Text: Spoke to Luba at Dr. Stubbs's office to get a copy of the medical optimization per PAT visit. Will have Ce in CC follow up to retrieve a copy. [facility] 11-08-2022 Miscellaneous Notes Pt has 40 min.pre-op appt with PCP on 11/13/22. Olivia Brown LPN Left message for patient to call office back. Patient needs schedule for pre-op clearance for upcoming surgery. Please see if patient had EKG and labs done at pre-testing today. If not will need 40 min to do ekg/appointment in office IF he did do EKG today (11/07) and going to complete labs this week can be 20 min appointment Donna Escobar Ma documented in this encounter [facility] 11-08-2022 Miscellaneous Notes Reviewed. TC to Pt. Unable to schedule at this time. Pt is going through [facility] financial to get ok to have appt. Pt is going to call in an schedule. Olivia Brown LPN Yes, I discussed this with my nurse yesterday and I believe she tried to contact him for an OV. Patient reports he is scheduled for back surgery on 11-15. Reports he's completed imaging, and labwork. Asking if he needs clearance from pcp, and if yes, are you able to clear him with the information already in his chart, or do you need to see him? Please advise patient via [facility]. Last ov: 08-09-22 documented in this encounter [facility] 11-08-2022 History and physical note HISTORY AND PHYSICAL EXAMINATION SERVICE DATE: 11/06/2022 SERVICE TIME: 8:25 AM PRIMARY CARE PHYSICIAN: Nancy Daly MD REASON FOR VISIT: Kate Wharton is a 32 year old male who is scheduled for Procedure(s): Left L4-5 hemilaminectomy and discectomy (Left) MICROSURGICAL TECHNIQUE FOR SPINAL PROCEDURES (N/A) at the request of Dr. Tobias Stubbs for routine H&P. My final recommendation will be communicated back to the requesting physician by way of shared medical record or letter. The reason for this visit is to perform a comprehensive review of the patient's past medical history, assess their current health status and obtain any additional testing required based on anesthesia guidelines. We will also identify any potential anesthesia problems or contraindications to the planned procedure. 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 CHIEF COMPLAINT: Lumbar radiculopathy HPI: Patient is a 32 year old male here for a preoperative exam. PT complaint of low back pain for the last 16 years, he states that he had a skate boarding accident as a teenager and at that time was found to have degenerative disc disease. He describes the pain as sharp, burning and twisting, pain radiates to the left leg. Today pt rates pain 7/10. Activity, over exertion makes the pain worse, heat, mariajuana improves the pain. Pt discussed with surgeon and agrees to surgical intervention. REVIEW OF SYSTEMS: General: Negative for: unintentional weight change, malaise and fever. Neurological: Positive for: headaches. Negative for: seizures and strokes. Respiratory: Positive for: tobacco use. Negative for: asthma, COPD, URI < 2 weeks and obstructive sleep apnea. Cardiovascular: Negative for: arrhythmia, CAD, chest pain, DVT/PE, hyperlipidemia and hypertension. GI: Negative for: abdominal pain, GERD, heartburn, nausea and vomiting. : Negative for: dysuria, hematuria and renal failure. Endocrine: Negative for: diabetes mellitus and hypothyroidism. Hematology: Negative for: anemia, factor V Leiden, von Willebrand disease and chronic anti-coagulation/platelet meds. Oncology: No history of CA metastasis, chemo within 30 days, or radiotherapy within 90 days. No history of oncological symptoms or problems. Psych: Positive for: anxiety and depression. Musculoskeletal: Negative for joint pain or swelling, back pain or muscle pain. Skin: Negative for lesions, rash and itching. PAST MEDICAL HISTORY Diagnosis Date DDD (degenerative disc disease), lumbar Seeing Dr. 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 Marijuana use Osteoarthritis of lumbar spine PMH - PAST MEDICAL HISTORY OF 08/21/2002 normal color vision Tobacco use PAST SURGICAL HISTORY Procedure Laterality Date TONSILLECTOMY & ADENOIDECTOMY <AGE 12 06/11/00 TYMPANOSTOMY LOCAL/TOPICAL ANESTHESIA 06/11/00 FAMILY HISTORY Problem Relation Age of Onset Cancer Paternal Grandmother 03/2005 other (stroke,heart) Paternal Grandmother paternal side Breast Cancer Mother Emphysema Maternal Grandmother Social History Tobacco Use Smoking status: Every Day Packs/day: 0.50 Years: 16.00 Additional pack years: 0.00 Total pack years: 8.00 Types: Cigarettes Smokeless tobacco: Former Types: Chew Quit date: 09/18/2008 Vaping Use Vaping Use: Never used Substance Use Topics Alcohol use: Yes Comment: rarely Drug use: Yes Frequency: 3.0 times per week Types: Marijuana Prior to Admission medications as of 11/02/22 0849 Medication Sig Last Dose Taking acetaminophen (TYLENOL) 325 mg tablet Take 650 mg by mouth every 6 hours as needed. Taking Yes hydrOXYzine HCl (ATARAX) 25 mg tablet Take 1-2 tablets by mouth every 4 hours as needed for itching/rash. Patient not taking: Reported on 11/02/2022 Not Taking No medication comments found. ALLERGIES No Known Allergies Objective PHYSICAL EXAM: General: alert and oriented and healthy appearance. Pertinent negatives noted - not distressed. Skin: normal color, no rash or lesions. HEENT: No additional findings for patient's neck. Cardiovascular: regular rate and rhythm, normal S1 and S2, no rub, murmurs, or gallop. Respiratory: normal breath sounds, no wheezes or crackles. No chest wall deformity or tenderness. Abdomen: bowel sounds present and soft. Pertinent negatives noted - not tender. Extremities: no deformity, no edema or tenderness, no joint swelling or clubbing. Neurological: normal cognition and motor skills. Gait normal. No weakness or sensory deficit. PAIN ASSESSMENT: Pain Pain Level: 7 Pain Location: Back-Lower Description: Sharp, Other: See comment, Burning (twisting) VITALS: BP 110/73 Pulse 74 Temp 99.1 Resp 16 Ht 5' 11 (1.80m) Wt 165 lb (74.8kg) SpO2 97% BMI 23.02 kg/(m^2). Diagnostic tests reviewed for today's visit: Lab Value Units Date High Low HB No results within date range. HCT No results within date range. WBC No results within date range. PLT No results within date range. NA No results within date range. K No results within date range. GLUC No results within date range. BUN No results within date range. CREAT No results within date range. PTSEC No results within date range. INR No results within date range. APTT No results within date range. ALT No results within date range. AST No results within date range. TBILI No results within date range. TSH No results within date range. Lab Value Units Date High Low HCGQT No results within date range. UHCG No results within date range. HCG, BODY* No results within date range. Lab Value Units Date High Low ABORHD No results within date range. ABSCREEN No results within date range. Hemoglobin A1C (%) Date Value 05/05/2020 5.6 No results found for this or any previous visit (from the past 8760 hour(s)). No results found for this or any previous visit (from the past 87725 hour(s)). Assessment Patient has the following medical conditions which may affect dimple-operative course: Lumbar radiculopathy Surgery scheduled with Dr. Stubbs on 11/15/2022 Preop examination Patient has the following medical conditions which may affect dimple-operative course addressed in assessment and plan today. Tobacco use 8 pack years Instructed to avoid tobacco morning of surgery Marijuana use Instructed to avoid 1 week prior to surgery Craig Activity Status Index: METS: Climb a flight of stairs or walk up a hill (5.50 METs) DASI Score: 5.5 Patient denies any chest pain or undue shortness of breath with the above physical activity. ARISCAT Score: Age: <=50 Preoperative SpO2: >=96% Respiratory infection in the last month: No Preoperative anemia: No Surgical incision: peripheral Duration of surgery: 2-3 hrs Emergency procedure: No ARISCAT Score: 16 ANESTHESIA FINDINGS: Intubation History: No abnormal airway history. No prior intubation Significant Anesthesia Considerations: none Airway History: No abnormal airway history No prior intubation I - PHYSICAL EVALUATION AIRWAY Patient intubated: No. DENTAL Dental findings: teeth intact and poor dentition. Additional comments: No upper teeth. II - ANESTHESIA PLAN Anesthetic Plan: general Beta Ember Monitoring Plan Post Procedure Analgesic Plan Prepared for Surgery: CONSULTS: The following consults have been initiated at this time: primary care/internal medicine. Planned Anesthetic: general Implantable Devices: None Denies blood thinners The Following Tests/Procedures Have Been Initiated: CBC, MRSA, urine culture, UA, EKG, CXR, APTT, PT, CMP, T/S ordered per surgeon in Epic Assessment/Plan Diagnosis: Lumbar radiculopathy [M54.16] PLAN Planned Procedure: Procedure(s): Left L4-5 hemilaminectomy and discectomy (Left) MICROSURGICAL TECHNIQUE FOR SPINAL PROCEDURES (N/A) The Following Tests/Procedures Have Been Initiated: Orders Placed This Encounter Confirm Blood Type Order Comments: Draw separate from TSCR Standing Status: Future Number of Occurrences: 1 Standing Expiration Date: 01/08/2023 Order Specific Question: Did Blood Bank direct you to place this order: Answer: No - Presurgical Workflow Instructions Given to Patient: Instructions located in the after visit summary. Patient given verbal and written preop instructions and voices comprehension and compliance. I spent a total of 50 minutes on the date of the service which included preparing to see the patient, [id number] patient care, completing clinical documentation, obtaining and/or reviewing separately obtained history, performing a medically appropriate examination, counseling and educating the patient/family/caregiver, and ordering medications, tests, or procedures. SIGNATURE: Raya Boswell APRN.CNP PATIENT NAME: Kate Wharton DATE: November 08, 2022 TIME: 8:24 AM PAGER/CONTACT #: documented in this encounter [facility] 11-06-2022 Instructions Raya Boswell APRN.MANAGER PRODUCE - 11/06/2022 1:02 PM EDT PATIENT PREOPERATIVE INSTRUCTIONS Dr. Stubbs has scheduled you for your procedure at this surgery center: [facility]: [phone], [address] [id number] Please read below carefully for your personalized instructions. SURGERY DATE: 11/15/2022 Arrival Time for Surgery: - To obtain your ARRIVAL TIME for surgery, call your physician's office the day before your surgery . - If your surgery is scheduled for Saturday, call the Saturday before. Your surgeon s material scheduler will tell you what time to arrive for surgery. Please be aware that emergency situations arise, which may delay or change your surgical time. If this happens, we will notify you as soon as possible and regret any inconvenience. Dietary Restrictions: -Nothing to eat after midnight the night before. -You may have up to 12 oz of clear liquid (water, clear juice, Gatorade, carbonated beverages, black tea or black coffee) up to 4 hours prior to your procedure. Blood Thinning Medications: - Stop NSAIDS (Ibuprofen, Advil, Aleve, Motrin, Celebrex, Mobic, Voltaren, Diclofenac etc.) 7 days before surgery, as directed by your surgeon. -You may take Tylenol for pain. IF YOU TAKE ANY OF THE FOLLOWING BLOOD THINNERS, PLEASE CONTACT YOUR SURGEON AND THE PHYSICIAN WHO PRESCRIBES IT FOR YOU IN ORDER TO GET PERIOPERATIVE INSTRUCTIONS SOON POSSIBLE. BLOOD THINNERS: Aspirin , Coumadin, Plavix, Eliquis, Pradaxa, Xarelto, Lovenox, Brilinta, Effient, Savaysa, Arixtra, etc - Stop Vitamin E, fish oil, multivitamins, Marijuana, CBD oil and other over the counter herbals and dietary supplements 7 days before surgery. ?-This would not apply to cancer patients who are prescribed Marinol or any other prescription form on marijuana or CBD. Medications: Approved medications to take the morning of surgery with a sip of water: BP, Heart, thyroid, psych, seizure, and pain medications excluding NSAIDS. Use inhalers as prescribed. Please bring inhalers. Pain Medications: - Your pain medication may cause thinning of your blood. Please see directions for Blood Thinning Medications. If you take any medications for erectile dysfunction-Cialis (Tadalafil), Levitra, Staxyn (Vardenafil) Viagra (Sildenenafil please do not take these for 48 hours before surgery. Medications to be taken with small amount of fluid on the morning of surgery: see medication list If you start any new medications after today's visit, please contact the surgeon's office. Important Reminders: -- If you have a stimulator, implant or pump that requires a remote please bring the remote with you day of surgery. - If you use CPAP/BIPAP, bring the machine with you to the surgery center. - If you are prescribed inhalers for breathing, continue using them AND bring them to the surgery center. - Candy, mints, gum and tobacco products are NOT permitted the morning of surgery. - Hearing aids, dentures and glasses may be worn the morning of surgery. - NO jewelry, body piercings, makeup, hairpins or contacts are to be worn the day of surgery. -NO keys, wallet, watches, or purses -Oral hygiene and a shower or bath is required the evening before or the morning of surgery. Use the Hibiclens body wash supplied to you along with the instruction. - NO lotion, creams, powders or deodorants on the skin the day of surgery -Wear loose, comfortable clothing that will accommodate bandages. -Your length of stay will be determined by your surgeon - You will need to have someone else (Family or friend) drive you home once discharged from the hospital. You are not allowed to drive yourself home after surgery. - YOU MUST HAVE A RESPONSIBLE CONSUMER BANKER TAKE YOU HOME. A GARMENT FINISHER, CAB OR UBER CONSUMER BANKER CANNOT BE MADE A RESPONSIBLE CONSUMER BANKER. - We recommend that a responsible person stays with you overnight to take care of you. - You cannot stay in a hotel alone after outpatient surgery. You will not be permitted to have your surgery, if you do not have someone to take care of you. --IF you are having a TOTAL KNEE or HIP REPLACEMENT please bring your walker into the building with you. Visitations are : Visitation hours are from 7 AM to 9 PM Pre- Surgery-Patients may have up to two visitors at a time. PACU-Patients may have up to 1-2 visitors at a time . -It is recommended patients have a 72 hour period between getting their vaccine and date of surgery. If you develop symptoms such as a fever, cold, or flu, or have other changes to your health within TWO DAYS of scheduled surgery or the morning of surgery, please contact the surgery center above. Personal Belongings: - Leave ALL valuables and money at home or with family members. - You will need a form of ID and insurance card to check in the morning of surgery. - You will have to wear a hospital gown during your stay but if you wish to bring undergarments for after surgery you may. Raya Boswell APRN.CNP 11/06/22 documented in this encounter [facility] 11-02-2022 Note HNO ID: [id number] Author: Tobias Stubbs DO Service: ? Author Type: Physician Type: Progress Notes Filed: 11/02/2022 9:04 AM Note Text: Tobias Stubbs DO [facility] - Orthopedic Spine Surgeon [address] [facility] [address] [address] [place] [address] Phone: [phone] ([phone] FAX: [phone] SPINE SURGERY OUTPATIENT CONSULT SERVICE DATE: 11/02/2022 Last Office Visit: 10/30/2022 REFERRING PROVIDER: Tobias Stubbs [address] [place] [address] CHIEF COMPLAINT: Left leg pain HISTORY OF PRESENT ILLNESS Kate Wharton is a 32 year old male presenting alone. PMH of osteoarthritis of lumbar spine. He reported a long standing history of low back pain with radiation to his bilateral lower extremities L>R and difficulty walking. He underwent a L4-5 TFESI on 08/28/[address] Camacho he reported 25% relief. He was last evaluated virtually on 10/30/2022. He noted he continued with left leg pain, which was in a L5 dermatome. He noted the pain radiated down the posterior aspect of the leg into his 1st and second digits. He denied any new weakness, loss of bowel or bladder. Due to his MRI demonstrating a large disc herniation on the left compressing the L5 nerve root at L4-5, it was recommended he follow up in office for surgical discussion, prompting his visit today. Today he states his symptoms have gone unchanged since last visit. He continues with left side low back and leg pain that radiates down the posterior aspect to his foot. He notes numbness and tingling that radiates into the 1st 2 digits on the left. He notes intermittent right posterior calf numbness and tingling. He notes weakness, but denies any falls. He notes dysuria and severe pain to his back with bowel movements. He notes nothing helps his pain. Pain is located in the L5 dermatome on the left. He has failed 4 different sessions of PT. He presents for evaluation and plan of care Pain chronic PREVIOUS CONSERVATIVE TREATMENTS: Pain Management Transformational lumbar BETTYE at L5-S1 on 04/10/2021 and 07/26/2022 Neurontin PREVIOUS SURGERY: None Smoker: current + marijuana- 1.5 PPD Diabetic: denies Anticoagulants / Antiplatelets: No Occupation: [employer] PAST MEDICAL HISTORY Diagnosis Date DDD (degenerative disc disease), lumbar Seeing Dr. 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 Marijuana use Osteoarthritis of lumbar spine PMH - PAST MEDICAL HISTORY OF 08/21/2002 normal color vision Tobacco use PAST SURGICAL HISTORY Procedure Laterality Date TONSILLECTOMY AND ADENOIDECTOMY TYMPANOSTOMY LOCAL/TOPICAL ANESTHESIA 06/11/00 FAMILY HISTORY Problem Relation Age of Onset Cancer Paternal Grandmother 03/2005 other (stroke,heart) Paternal Grandmother paternal side Breast Cancer Mother Emphysema Maternal Grandmother Social History Tobacco Use Smoking status: Some Days Packs/day: 0.50 Years: 13.00 Additional pack years: 0.00 Total pack years: 6.50 Types: Cigarettes Smokeless tobacco: Former Types: Chew Quit date: 09/18/2008 Substance Use Topics Alcohol use: Yes Comment: rarely Drug use: Yes Frequency: 3.0 times per week Types: Marijuana ALLERGIES No Known Allergies MEDICATIONS: acetaminophen (TYLENOL) 325 mg tablet Take 650 mg by mouth every 6 hours as needed. hydrOXYzine HCl (ATARAX) 25 mg tablet Take 1-2 tablets by mouth every 4 hours as needed for itching/rash. (Patient not taking: Reported on 11/02/2022) REVIEW OF SYSTEMS Review of Systems Constitutional: Negative for diaphoresis, fatigue and fever. HENT: Negative for congestion, sinus pressure and sore throat. Eyes: Negative for discharge and itching. Respiratory: Negative for cough, chest tightness and shortness of breath. Cardiovascular: Negative for chest pain, palpitations and leg swelling. Gastrointestinal: Negative for constipation, diarrhea, nausea and vomiting. Endocrine: Negative for cold intolerance and heat intolerance. Genitourinary: Positive for dysuria. Negative for difficulty urinating, frequency and urgency. Musculoskeletal: Positive for back pain and gait problem. Negative for neck pain and neck stiffness. Skin: Negative for rash and wound. Allergic/Immunologic: Negative for environmental allergies and food allergies. Neurological: Positive for weakness and numbness. Negative for dizziness, light-headedness and headaches. Hematological: Does not bruise/bleed easily. Psychiatric/Behavioral: Negative for agitation. The patient is not nervous/anxious. OBJECTIVE: BP 118/76 (BP Site: Left Arm, BP Position: Sitting, BP Cuff Size: Large Adult) Pulse 62 Ht 5' 11 (1.803 m) Wt 166 lb 14.2 oz (75.7 kg) SpO2 100% BMI 23.28 kg/m? PHYSICAL EXAM GENERAL APPEARANCE: Well nourished, well developed, and no apparent distress. NEURO PSYCH: Patient jim (more content not included)... [facility] 11-02-2022 History of Present illness Narrative Images from the original note were not included. Tobias Stubbs DO [facility] - Orthopedic Spine Surgeon [address], [facility] [address] [address] [place] [address] Phone: [phone] FAX: [phone] SPINE SURGERY OUTPATIENT CONSULT SERVICE DATE: 11/02/2022 Last Office Visit: 10/30/2022 REFERRING PROVIDER: Tobias Stubbs [address] [place] [address] CHIEF COMPLAINT: Left leg pain HISTORY OF PRESENT ILLNESS Kate Wharton is a 32 year old male presenting alone. PMH of osteoarthritis of lumbar spine. He reported a long standing history of low back pain with radiation to his bilateral lower extremities L>R and difficulty walking. He underwent a L4-5 TFESI on 08/28/[address] Camacho he reported 25% relief. He was last evaluated virtually on 10/30/2022. He noted he continued with left leg pain, which was in a L5 dermatome. He noted the pain radiated down the posterior aspect of the leg into his 1st and second digits. He denied any new weakness, loss of bowel or bladder. Due to his MRI demonstrating a large disc herniation on the left compressing the L5 nerve root at L4-5, it was recommended he follow up in office for surgical discussion, prompting his visit today. Today he states his symptoms have gone unchanged since last visit. He continues with left side low back and leg pain that radiates down the posterior aspect to his foot. He notes numbness and tingling that radiates into the 1st 2 digits on the left. He notes intermittent right posterior calf numbness and tingling. He notes weakness, but denies any falls. He notes dysuria and severe pain to his back with bowel movements. He notes nothing helps his pain. Pain is located in the L5 dermatome on the left. He has failed 4 different sessions of PT. He presents for evaluation and plan of care Pain chronic PREVIOUS CONSERVATIVE TREATMENTS: Pain Management Transformational lumbar BETTYE at L5-S1 on 04/10/2021 and 07/26/2022 Neurontin PREVIOUS SURGERY: None Smoker: current + marijuana- 1.5 PPD Diabetic: denies Anticoagulants / Antiplatelets: No Occupation: [employer] PAST MEDICAL HISTORY Diagnosis Date DDD (degenerative disc disease), lumbar Seeing Dr. 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 Marijuana use Osteoarthritis of lumbar spine PMH - PAST MEDICAL HISTORY OF 08/21/2002 normal color vision Tobacco use PAST SURGICAL HISTORY Procedure Laterality Date TONSILLECTOMY & ADENOIDECTOMY <AGE 12 06/11/00 TYMPANOSTOMY LOCAL/TOPICAL ANESTHESIA 06/11/00 FAMILY HISTORY Problem Relation Age of Onset Cancer Paternal Grandmother 03/2005 other (stroke,heart) Paternal Grandmother paternal side Breast Cancer Mother Emphysema Maternal Grandmother Social History Tobacco Use Smoking status: Some Days Packs/day: 0.50 Years: 13.00 Additional pack years: 0.00 Total pack years: 6.50 Types: Cigarettes Smokeless tobacco: Former Types: Chew Quit date: 09/18/2008 Substance Use Topics Alcohol use: Yes Comment: rarely Drug use: Yes Frequency: 3.0 times per week Types: Marijuana ALLERGIES No Known Allergies MEDICATIONS: acetaminophen (TYLENOL) 325 mg tablet Take 650 mg by mouth every 6 hours as needed. hydrOXYzine HCl (ATARAX) 25 mg tablet Take 1-2 tablets by mouth every 4 hours as needed for itching/rash. (Patient not taking: Reported on 11/02/2022) REVIEW OF SYSTEMS Review of Systems Constitutional: Negative for diaphoresis, fatigue and fever. HENT: Negative for congestion, sinus pressure and sore throat. Eyes: Negative for discharge and itching. Respiratory: Negative for cough, chest tightness and shortness of breath. Cardiovascular: Negative for chest pain, palpitations and leg swelling. Gastrointestinal: Negative for constipation, diarrhea, nausea and vomiting. Endocrine: Negative for cold intolerance and heat intolerance. Genitourinary: Positive for dysuria. Negative for difficulty urinating, frequency and urgency. Musculoskeletal: Positive for back pain and gait problem. Negative for neck pain and neck stiffness. Skin: Negative for rash and wound. Allergic/Immunologic: Negative for environmental allergies and food allergies. Neurological: Positive for weakness and numbness. Negative for dizziness, light-headedness and headaches. Hematological: Does not bruise/bleed easily. Psychiatric/Behavioral: Negative for agitation. The patient is not nervous/anxious. OBJECTIVE: BP 118/76 (BP Site: Left Arm, BP Position: Sitting, BP Cuff Size: Large Adult) Pulse 62 Ht 5' 11 (1.803 m) Wt 166 lb 14.2 oz (75.7 kg) SpO2 100% BMI 23.28 kg/m PHYSICAL EXAM GENERAL APPEARANCE: Well nourished, well developed, and no apparent distress. NEURO PSYCH: Patient oriented to person, place, and time. Mood pleasant. Benign affect. CARDIOVASCULAR: Palpable pulses. No edema noted. No varicosities. SKIN: Head, neck, trunk, and extremities dry, intact and without lesions. LYMPHATICS: No palpable nodes in cervical or axillae areas. Groin exam deferred MUSCULOSKELETAL PALPATION: SPINOUS PROCESS: No pain. PARASPINALS: No pain. MUSCLE TONE and BULK: Symmetrical in the upper & lower extremities. 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 Able to perform tandem gait. LONG TRACT SIGNS: No clonus. No Hoffmanns. REFLEXES: symmetric non-brisk DATA REVIEW MRI lumbar spine: Large disc herniation at L4-5 on the left PRE-OP DISCUSSION OF PLAN, INFORMED CONSENT, & CHECKLIST Reviewed With patient PRE-OP PLAN: Preoperative Diagnosis:Lumbar radiculopathy Planned procedure: Left L4-5 hemilaminectomy and discectomy Proposed anesthesia: general Patient Status category at the facility: outpatient Indication for surgery: failure of conservative care Estimated Surgery Time:2 Hours Implant Type:none Microscope: No Positioning: prone open frame jay jay table with sling with facefoam Intraoperative imaging: fluoroscopy Neuromonitoring: Intranerve No Specials/Additional Equipment: Estimated Hospital Nights: 0 PCP: Nancy Daly MD Needs clearance letter from PCP? Yes Needs suitability letter from PCP? Yes INFORMED CONSENT Risks of surgery were discussed in detail with the patient. Risks of surgery discussed include but are not limited to, the risk of DVT, PE, and/or . Cardiovascular and pulmonary risk, as related to the patient's preoperative clearance and assessment by the perioperative team as well as anesthesia. The risk of neurological injury was discussed in great detail, including discussion of a spectrum of partial dysfunction through complete dysfunction. The risk of nerve root injury was discussed that may result in weakness, paralysis, sensory loss, and/or intractable pain and supplied nerve root that might either be transient and/or permanent in nature. The risk of compressive epidural hematoma and/or compressive epidural abscess was discussed with the patient that may or may not result in transient and/or permanent bowel and bladder dysfunction and/or transient and/or permanent lower extremity dysfunction such as weakness, paralysis, sensory loss, and/or intractable pain. The risk of durotomy, and potential complications of spinal headache, and/or persistent leakage, resulting in the need for further surgery, and/or drain placement was discussed. The risk of complications related to fusion were discussed in detail. The risk of pseudoarthrosis was discussed. The risk of hardware failure including hardware pullout, spencer breakage, screw breakage was discussed. The risk of screw loosening was discussed. The risk of need for further surgery for hardware failure, pseudoarthrosis was discussed. The risk of screw misplacement resulting in radiculopathy or neurological injury was discussed. The risk of need for further surgery to alter trajectory of hardware was discussed. The risk of needing to extend the fusion cephalad and/or caudad and the reasoning behind this was discussed. Adjacent segment breakdown that may or may not be symptomatic was discussed. The risk of instability status post surgery was discussed, the risk of superficial and deep infection was discussed. No guarantees were offered nor implied regarding final outcome status post surgery or presence or absence of complication perioperatively. The risk of no improvement in symptoms despite technically adequate decompression of the compressed structures was discussed in extreme detail. The risk of need for further surgery for any reason was discussed. After a thorough discussion, the patient had many appropriate questions, all questions were answered to the patient's stated satisfaction. The patient voiced excellent understanding of both the reasoning for offering surgery, the potential complications regarding this particular surgery, and has elected to proceed. PRE-OP CHECKLIST Comorbidities: PAST MEDICAL HISTORY Diagnosis Date DDD (degenerative disc disease), lumbar Seeing Dr. 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 Marijuana use Osteoarthritis of lumbar spine PMH - PAST MEDICAL HISTORY OF 08/21/2002 normal color vision Tobacco use PAST SURGICAL HISTORY Procedure Laterality Date TONSILLECTOMY & ADENOIDECTOMY <AGE 12 06/11/00 TYMPANOSTOMY LOCAL/TOPICAL ANESTHESIA 06/11/00 Operative Permit: Electronic signatures Signed by surgeon: Yes Signed by patient: Yes ASSESSMENT/PLAN Kate Wharton is 32 year old male with lumbar radiculopathy. -I had a long discussion today with the patient. I reviewed his imaging with him. He has failed conservative treatments. I discussed the patient that since he has no neurologic deficit just pain he can proceed with conservative treatments. He wished to proceed with operative intervention. I discussed all operative nonoperative treatment options. Patient wishes to proceed with a left L4-5 hemilaminectomy and discectomy. I described all risk benefits. I answered all of his questions. We will schedule him at his convenience. The following portions of the patient's history were reviewed, confirmed, and updated as necessary: allergies, current medications, past family history, past medical history, past social history, past surgical history, problem list, HPI, and ROS obtained by others. Some elements may be copied from a previous office note and have been reviewed/updated where appropriate. All portions reflect current medical decision making from today. The clinical and radiographic findings as well as the risks, benefits and alternatives of treatment have been reviewed in detail with the patient. Advised to call the office if symptoms worsen or new symptoms develop. Patient expressed understanding and is in agreement with plan. Tobias Stubbs DO This note was partially generated using LOAG voice recognition system, and there may be some incorrect words, spellings, and punctuation that were not noted in checking the note before saving. documented in this encounter [facility] 10-30-2022 Note HNO ID: [id number] Author: Tobias Stubbs DO Service: ? Author Type: Physician Type: Progress Notes Filed: 10/30/2022 11:32 AM Note Text: Tobias Stubbs DO [facility] - Orthopedic Spine Surgeon [address] [facility] [place] [facility] [address] [place] [address] Phone: [phone] FAX: [phone] SPINE SURGERY OUTPATIENT CONSULT SERVICE DATE: 10/30/2022 Last Office Visit: 10/02/2022 REFERRING PROVIDER: Nancy Daly [address] [facility] [address] CHIEF COMPLAINT: Left leg pain HISTORY OF PRESENT ILLNESS Kate Wharton is a 32 year old male presenting on telephone PMH of osteoarthritis of lumbar spine. He presents as a new patient with xray imaging referred by Catina Noguera PA-C for evaluation of the lumbar spine. He reported a long standing history of low back pain with radiation to his bilateral lower extremities L>R and difficulty walking. He underwent a L4-5 TFESI on 08/28/[address] Camacho he reported 25% relief. He was asked to follow-up with ortho spine for further evaluation. He was seen on 10/02/2022 where pain radiated down into his bilateral lower extremities. He reports sharp, shooting pain down the left posterior aspect of his leg and into his first and second toe. His year old MRI showed a paracentral disc herniation on the left compressing the L5 nerve root at L4-5, which I believed was the source of his pain. He was recommended to follow up with new MRI imaging, prompting his visit today. Today he states that he continues to have bad left leg pain. Pain is located in the L5 dermatome per description. Denies any new weakness or loss of bowel or bladder function. Pain chronic PREVIOUS CONSERVATIVE TREATMENTS: Pain Management Transformational lumbar BETTYE at L5-S1 on 04/10/2021 and 07/26/2022 Neurontin PREVIOUS SURGERY: None Smoker: current + marijuana Diabetic: denies Anticoagulants / Antiplatelets: No Occupation: [employer] PAST MEDICAL HISTORY Diagnosis Date DDD (degenerative disc disease), lumbar Seeing Dr. 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 Marijuana use Osteoarthritis of lumbar spine PMH - PAST MEDICAL HISTORY OF 08/21/2002 normal color vision Tobacco use PAST SURGICAL HISTORY Procedure Laterality Date TONSILLECTOMY AND ADENOIDECTOMY TYMPANOSTOMY LOCAL/TOPICAL ANESTHESIA 06/11/00 FAMILY HISTORY Problem Relation Age of Onset Cancer Paternal Grandmother 03/2005 other (stroke,heart) Paternal Grandmother paternal side Breast Cancer Mother Emphysema Maternal Grandmother Social History Tobacco Use Smoking status: Some Days Packs/day: 0.50 Years: 13.00 Additional pack years: 0.00 Total pack years: 6.50 Types: Cigarettes Smokeless tobacco: Former Types: Chew Quit date: 09/18/2008 Substance Use Topics Alcohol use: Yes Comment: rarely Drug use: Yes Frequency: 3.0 times per week Types: Marijuana ALLERGIES No Known Allergies MEDICATIONS: acetaminophen (TYLENOL) 325 mg tablet Take 650 mg by mouth every 6 hours as needed. celecoxib (CELEBREX) 200 mg capsule Take 1 capsule by mouth once daily. gabapentin (NEURONTIN) 300 mg capsule Take 1 capsule by mouth three times daily for 90 days. (Patient not taking: Reported on 05/11/2022) hydrOXYzine HCl (ATARAX) 25 mg tablet Take 1-2 tablets by mouth every 4 hours as needed for itching/rash. (Patient not taking: Reported on 05/11/2022) REVIEW OF SYSTEMS Review of Systems OBJECTIVE: There were no vitals taken for this visit. PHYSICAL EXAM Telephone encounter DATA REVIEW MRI lumbar spine 10/25/2022: IMPRESSION: Multilevel degenerative changes of the spine most pronounced at L4-5 with diffuse disc bulge and superimposed left paracentral/subarticular disc extrusion resulting in moderate spinal canal stenosis and impingement of the left L5 descending nerve roots. My interpretation: Large extruded disc herniation on the right side at L4-5 compressing the L5 nerve root. ASSESSMENT/PLAN Kate Wharton is a 32-year-old male with lumbar radiculopathy. -I had a long discussion today with the patient on the telephone. Reviewed his MRI and described to him. There is a large disc herniation on the left side compressing the L5 nerve root at L4-5. He was to have a course. He will follow-up with me on Saturday. The following portions of the patient's history were reviewed, confirmed, and updated as necessary: allergies, current medications, past family history, past medical history, past social history, past surgical history, problem list, HPI, and ROS obtained by others. Some elements may be copied from a previous office note and have been reviewed/updated where appropriate. All portions reflect current medical decision making from today. The clinical and radiographic findings as well as the risks, benefits and alternative (more content not included)... [facility] 10-30-2022 History of Present illness Narrative Images from the original note were not included. Tobias Stubbs, [facility] - Orthopedic Spine Surgeon [address] [facility] [place] [facility] [phone] [place] [address] Phone: [phone] FAX: [phone] SPINE SURGERY OUTPATIENT CONSULT SERVICE DATE: 10/30/2022 Last Office Visit: 10/02/2022 REFERRING PROVIDER: Nancy Daly [facility] [address] CHIEF COMPLAINT: Left leg pain HISTORY OF PRESENT ILLNESS Kate Wharton is a 32 year old male presenting on telephone PMH of osteoarthritis of lumbar spine. He presents as a new patient with xray imaging referred by Catina Noguera PA-C for evaluation of the lumbar spine. He reported a long standing history of low back pain with radiation to his bilateral lower extremities L>R and difficulty walking. He underwent a L4-5 TFESI on 08/28/[address] Camacho he reported 25% relief. He was asked to follow-up with ortho spine for further evaluation. He was seen on 10/02/2022 where pain radiated down into his bilateral lower extremities. He reports sharp, shooting pain down the left posterior aspect of his leg and into his first and second toe. His year old MRI showed a paracentral disc herniation on the left compressing the L5 nerve root at L4-5, which I believed was the source of his pain. He was recommended to follow up with new MRI imaging, prompting his visit today. Today he states that he continues to have bad left leg pain. Pain is located in the L5 dermatome per description. Denies any new weakness or loss of bowel or bladder function. Pain chronic PREVIOUS CONSERVATIVE TREATMENTS: Pain Management Transformational lumbar BETTYE at L5-S1 on 04/10/2021 and 07/26/2022 Neurontin PREVIOUS SURGERY: None Smoker: current + marijuana Diabetic: denies Anticoagulants / Antiplatelets: No Occupation: [employer] PAST MEDICAL HISTORY Diagnosis Date DDD (degenerative disc disease), lumbar Seeing Dr. 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 Marijuana use Osteoarthritis of lumbar spine PMH - PAST MEDICAL HISTORY OF 08/21/2002 normal color vision Tobacco use PAST SURGICAL HISTORY Procedure Laterality Date TONSILLECTOMY & ADENOIDECTOMY <AGE 12 06/11/00 TYMPANOSTOMY LOCAL/TOPICAL ANESTHESIA 06/11/00 FAMILY HISTORY Problem Relation Age of Onset Cancer Paternal Grandmother 03/2005 other (stroke,heart) Paternal Grandmother paternal side Breast Cancer Mother Emphysema Maternal Grandmother Social History Tobacco Use Smoking status: Some Days Packs/day: 0.50 Years: 13.00 Additional pack years: 0.00 Total pack years: 6.50 Types: Cigarettes Smokeless tobacco: Former Types: Chew Quit date: 09/18/2008 Substance Use Topics Alcohol use: Yes Comment: rarely Drug use: Yes Frequency: 3.0 times per week Types: Marijuana ALLERGIES No Known Allergies MEDICATIONS: acetaminophen (TYLENOL) 325 mg tablet Take 650 mg by mouth every 6 hours as needed. celecoxib (CELEBREX) 200 mg capsule Take 1 capsule by mouth once daily. gabapentin (NEURONTIN) 300 mg capsule Take 1 capsule by mouth three times daily for 90 days. (Patient not taking: Reported on 05/11/2022) hydrOXYzine HCl (ATARAX) 25 mg tablet Take 1-2 tablets by mouth every 4 hours as needed for itching/rash. (Patient not taking: Reported on 05/11/2022) REVIEW OF SYSTEMS Review of Systems OBJECTIVE: There were no vitals taken for this visit. PHYSICAL EXAM Telephone encounter DATA REVIEW MRI lumbar spine 10/25/2022: IMPRESSION: Multilevel degenerative changes of the spine most pronounced at L4-5 with diffuse disc bulge and superimposed left paracentral/subarticular disc extrusion resulting in moderate spinal canal stenosis and impingement of the left L5 descending nerve roots. My interpretation: Large extruded disc herniation on the right side at L4-5 compressing the L5 nerve root. ASSESSMENT/PLAN Kate Wharton is a 32-year-old male with lumbar radiculopathy. -I had a long discussion today with the patient on the telephone. Reviewed his MRI and described to him. There is a large disc herniation on the left side compressing the L5 nerve root at L4-5. He was to have a course. He will follow-up with me on Saturday. The following portions of the patient's history were reviewed, confirmed, and updated as necessary: allergies, current medications, past family history, past medical history, past social history, past surgical history, problem list, HPI, and ROS obtained by others. Some elements may be copied from a previous office note and have been reviewed/updated where appropriate. All portions reflect current medical decision making from today. The clinical and radiographic findings as well as the risks, benefits and alternatives of treatment have been reviewed in detail with the patient. Advised to call the office if symptoms worsen or new symptoms develop. Patient expressed understanding and is in agreement with plan. Tobias Stubbs DO This note was partially generated using LOAG voice recognition system, and there may be some incorrect words, spellings, and punctuation that were not noted in checking the note before saving. documented in this encounter [facility] 10-25-2022 Note HNO ID: [id number] Author: Isabelle Gayle RT(Marquis) Service: ? Author Type: Technologist Type: Progress Notes Filed: 10/25/2022 11:26 AM Note Text: Radiology Service Progress Note PATIENT NAME: Kate Wharton DATE OF SERVICE: October 25, 2022 TIME: 11:26 AM PATIENT IDENTITY VERIFICATION COMPLETED USING TWO (2) IDENTIFIERS: Name and Date of confirmed by patient verbally. FALL SCREENING: Has the patient had 2 falls in the last year or 1 fall with injury or currently using an Ambulatory Assistive Device (Walker, Cane, Wheelchair, Crutches, etc.)? No PATIENT GENDER DATA: Male PATIENT RELEVANT IMPLANT DATA REVIEWED: Yes RADIOLOGY DEPARTMENT: MR; Exam(s) Completed: Spine: Lumbar spine PERIPHERAL IV DATA: Not applicable SIGNED BY: RT Caitlyn(R) October 25, 2022 11:26 AM [facility] 10-25-2022 History of Present illness Narrative Radiology Service Progress Note PATIENT NAME: Kate Wharton DATE OF SERVICE: October 25, 2022 TIME: 11:26 AM PATIENT IDENTITY VERIFICATION COMPLETED USING TWO (2) IDENTIFIERS: Name and Date of confirmed by patient verbally. FALL SCREENING: Has the patient had 2 falls in the last year or 1 fall with injury or currently using an Ambulatory Assistive Device (Walker, Cane, Wheelchair, Crutches, etc.)? No PATIENT GENDER DATA: Male PATIENT RELEVANT IMPLANT DATA REVIEWED: Yes RADIOLOGY DEPARTMENT: MR; Exam(s) Completed: Spine: Lumbar spine PERIPHERAL IV DATA: Not applicable SIGNED BY: RT Caitlyn(R) October 25, 2022 11:26 AM documented in this encounter [facility] 10-02-2022 Note HNO ID: [id number] Author: Tobias Stubbs DO Service: ? Author Type: Physician Type: Progress Notes Filed: 10/02/2022 9:47 AM Note Text: Tobias Stubbs DO [facility] General Orthopedics - Orthopedic Spine Surgeon [address] [place], [place] [address]chrissie Daly., [facility] [address] [place] [address] Phone: [phone] ([phone] FAX: [phone] SPINE SURGERY OUTPATIENT CONSULT SERVICE DATE: 10/01/2022 Last Office Visit: New patient REFERRING PROVIDER: Catina Lloyd [address] [place] [id number] CHIEF COMPLAINT: Left leg pain HISTORY OF PRESENT ILLNESS Kate Wharton is a 32 year old male presenting alone. He has a PMH of osteoarthritis of lumbar spine. He presents as a new patient with xray imaging referred by Catina Noguera PA-C for evaluation of the lumbar spine. He reported a long standing history of low back pain with radiation to his bilateral lower extremities L>R and difficulty walking. He underwent a L4-5 TFESI on 08/28/[address] Camacho he reported 25% relief. He was asked to follow-up with ortho spine for further evaluation, prompting his visit today. Today, he states he has a long standing history of low back pain. States pain radiates down the bilateral lower extremities. He reports sharp, shooting pain down the left posterior aspect of his leg and into his first and second toe. He described and dull ache to the posterior aspect of his right thigh. He endorses subjective weakness. Bending/twisting aggravate his pain. Laying on his left side gives him relief. Pain is anywhere from a 6-8/10. He follows with pain management and has under gone multiple injections without relief. He has attempted physical therapy on 2 different occassions with no symptoms relief. He denies loss of bowel or bladder or gait instability. Pain is located in the L5 dermatome. He is here for image review, evaluation and plan of care. Pain chronic SYMPTOMS: low back pain bilateral leg pain PREVIOUS CONSERVATIVE TREATMENTS: Pain Management Transformational lumbar BETTYE at L5-S1 on 04/10/2021 and 07/26/2022 Neurontin PREVIOUS SURGERY: None Smoker: current + marijuana Diabetic: denies Anticoagulants / Antiplatelets: No Occupation: [employer] PAST MEDICAL HISTORY Diagnosis Date DDD (degenerative disc disease), lumbar Seeing Dr. 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 Marijuana use Osteoarthritis of lumbar spine PMH - PAST MEDICAL HISTORY OF 08/21/2002 normal color vision Tobacco use PAST SURGICAL HISTORY Procedure Laterality Date TONSILLECTOMY AND ADENOIDECTOMY TYMPANOSTOMY LOCAL/TOPICAL ANESTHESIA 06/11/00 FAMILY HISTORY Problem Relation Age of Onset Cancer Paternal Grandmother 03/2005 other (stroke,heart) Paternal Grandmother paternal side Breast Cancer Mother Emphysema Maternal Grandmother Social History Tobacco Use Smoking status: Some Days Packs/day: 0.50 Years: 13.00 Total pack years: 6.50 Types: Cigarettes Smokeless tobacco: Former Types: Chew Quit date: 09/18/2008 Substance Use Topics Alcohol use: Yes Comment: rarely Drug use: Yes Frequency: 3.0 times per week Types: Marijuana ALLERGIES No Known Allergies MEDICATIONS: acetaminophen (TYLENOL) 325 mg tablet Take 650 mg by mouth every 6 hours as needed. celecoxib (CELEBREX) 200 mg capsule Take 1 capsule by mouth once daily. gabapentin (NEURONTIN) 300 mg capsule Take 1 capsule by mouth three times daily for 90 days. (Patient not taking: Reported on 05/11/2022) hydrOXYzine HCl (ATARAX) 25 mg tablet Take 1-2 tablets by mouth every 4 hours as needed for itching/rash. (Patient not taking: Reported on 05/11/2022) REVIEW OF SYSTEMS Review of Systems Constitutional: Negative for appetite change, chills and fever. HENT: Negative for ear discharge, tinnitus and trouble swallowing. Eyes: Negative for pain, redness and visual disturbance. Respiratory: Negative for cough, shortness of breath and wheezing. Cardiovascular: Negative for chest pain, palpitations and leg swelling. Gastrointestinal: Negative for diarrhea, nausea and vomiting. Endocrine: Negative for cold intolerance and heat intolerance. Genitourinary: Negative for difficulty urinating, frequency and urgency. Musculoskeletal: Positive for back pain. Negative for gait problem, neck pain and neck stiffness. Skin: Negative for color change, rash and wound. Allergic/Immunologic: Negative for environmental allergies and food allergies. Neurological: Positive for numbness. Negative for weakness and headaches. Hematological: Does not bruise/bleed easily. Psychiatric/Behavioral: Negative for agitation and confusion. The patient is not nervous/anxious. OBJECTIVE: BP 102/67 (BP Site: Left Arm, BP Position: Sitting, BP Cuff Size: Large Adult) Pulse 71 Ht 180.3 cm (5' 11 ) Wt 78.2 kg (172 lb 6.4 oz) SpO2 99% BMI 24.04 kg/m? PH (more content not included)... [facility] 10-01-2022 Note HNO ID: [id number] Author: Selene Wing RT(R) Service: Radiology Author Type: Technologist Type: Progress Notes Filed: 10/01/2022 11:14 AM Note Text: Radiology Service Progress Note PATIENT NAME: Kate Wharton DATE OF SERVICE: October 01, 2022 TIME: 11:06 AM PATIENT IDENTITY VERIFICATION COMPLETED USING TWO (2) IDENTIFIERS: Name and Date of confirmed by patient verbally. FALL SCREENING: Has the patient had 2 falls in the last year or 1 fall with injury or currently using an Ambulatory Assistive Device (Walker, Cane, Wheelchair, Crutches, etc.)? No PATIENT GENDER DATA: Male PATIENT RELEVANT IMPLANT DATA REVIEWED: Yes RADIOLOGY DEPARTMENT: General X-ray: Exam(s) Completed: Spine X-Ray(s): Lumbar AP / LAT / L5-S1 PERIPHERAL IV DATA: Not applicable SIGNED BY: RT Juwan(R) October 01, 2022 11:06 AM [facility] 09-26-2022 Note HNO ID: [id number] Author: Catina Lloyd PA-C Service: ? Author Type: Physician Tower Erector Helper Type: Progress Notes Filed: 09/26/2022 1:32 PM Note Text: [facility] [address] [place] [address] Dear Nancy Daly MD, Kate Nuñez is a pleasant 32 year old individual who comes in to the office on 09/26/2022 for follow-up regarding the Lumbar spine. Patient is here alone today. Subjective: Compared to the last visit, symptoms have been the same. Mr. Wharton is still describing low back pain and left greater than right lower extremity radiating symptoms with difficulties walking. He underwent 08/28/2022 bilateral L4-[address] Ryne Camacho. This gave him only a maximum of 25% relief He remains a smoker but indicates that he desires to quit. ROS: Since last visit-patient DENIES fevers, chills, night sweats, abdominal pain, progressive weakness, paralysis, loss of bowel/bladder control, saddle numbness, stumbling gait, loss of coordination. Describes 8 lbs of wt loss with diminished appetite last week Current Outpatient Medications Medication Sig Dispense Refill amoxicillin-clavulanic acid (AUGMENTIN) 875-125 mg per tablet Take 875 mg by mouth. For bronchitis celecoxib (CELEBREX) 200 mg capsule Take 1 capsule by mouth once daily. 30 capsule 2 gabapentin (NEURONTIN) 300 mg capsule Take 1 capsule by mouth three times daily for 90 days. (Patient not taking: Reported on 05/11/2022) 90 capsule 2 hydrOXYzine HCl (ATARAX) 25 mg tablet Take 1-2 tablets by mouth every 4 hours as needed for itching/rash. (Patient not taking: Reported on 05/11/2022) 30 tablet 0 No current facility-administered medications for this visit. Exam: Blood pressure 107/66, pulse 67, height 180.3 cm (5' 11 ), weight 77.1 kg (170 lb), SpO2 100 %. Body mass index is 23.71 kg/m?. Station and Gait: favoring the left lower extremity Range of Motion: FANDE both hurt, worsened when he does any twisting Motor: Has Normal LE motor function Sensory: bilat N/T, L>R below the knees Reflexes: diminished LEFT achilles reflex Pain on Palpation: has LBP at L-S junction Positive LEFT LSR Imaging: The following study/studies were reviewed with the patient during the visit: His September 2021 lumbar MRI scan was reviewed with him during today's office visit. He has uncharacteristically severe disc degeneration at the bottom 3 levels for his age. At each disc, there are bulges in the foraminal regions narrowing accordingly, but the left L5 nerve root seems to be the most affected. This is the nerve that we tried to inject with recent TFESI which was done bilateral since he had some lesser right-sided symptoms as well. Assessment/Plan: Encounter Diagnosis ICD-10-CM 1. Spinal stenosis of lumbar region without neurogenic claudication M48.061 2. Degeneration of lumbar or lumbosacral intervertebral disc M51.37 RTC: on an as-needed basis (PRN) Other/Discussion: He had limited improvement with lumbar epidural steroid injection. He still has appreciable neurologic deficit and diminishment of day-to-day function in terms of activities.He has a positive left SLR and diminished/absent left Achilles reflex on top of central lumbosacral pain. He indicates that he is willing to stop smoking if needed to proceed with surgical consideration I would like him to consult with neurosurgery to gain their input regarding his overall situation. Time spent: 25 minutes today with this patient visit. This includes [id number] time, review of chart records regarding conservative care history, spine-pertinent imaging, and communication/care coordination with referring provider, problem-specific history-taking and counseling/education regarding treatment options. This document has been created with the use of voice recognition technology. It may contain inaccuracies: (e.g. misspellings, inaccurate syntax or word sense) that have escaped review. Zohra Savage MA [facility] 09-26-2022 Instructions Catina Lloyd PA-C - 09/26/2022 1:19 PM EDT How to review your options for a [facility] physician referral: Go to www.[email or web address].org and look for the Find a Doctor tab right underneath the [facility] logo in the top left corner of the page. Click on that and then enter spine surgery in that search field. There should be 18 or 20 different physicians in the [facility] area for you to review their credentials, locations of practice, educational background, and specialties. Call [phone] to schedule. documented in this encounter [facility] 09-26-2022 History of Present illness Narrative Catina Lloyd [facility] [address] [place] [address] Dear Nancy Daly MD, Kate Nuñez is a pleasant 32 year old individual who comes in to the office on 09/26/2022 for follow-up regarding the Lumbar spine. Patient is here alone today. Subjective: Compared to the last visit, symptoms have been the same. Mr. Wharton is still describing low back pain and left greater than right lower extremity radiating symptoms with difficulties walking. He underwent 08/28/2022 bilateral L4-[address] Ryne Camacho. This gave him only a maximum of 25% relief He remains a smoker but indicates that he desires to quit. ROS: Since last visit-patient DENIES fevers, chills, night sweats, abdominal pain, progressive weakness, paralysis, loss of bowel/bladder control, saddle numbness, stumbling gait, loss of coordination. Describes 8 lbs of wt loss with diminished appetite last week Current Outpatient Medications Medication Sig Dispense Refill amoxicillin-clavulanic acid (AUGMENTIN) 875-125 mg per tablet Take 875 mg by mouth. For bronchitis celecoxib (CELEBREX) 200 mg capsule Take 1 capsule by mouth once daily. 30 capsule 2 gabapentin (NEURONTIN) 300 mg capsule Take 1 capsule by mouth three times daily for 90 days. (Patient not taking: Reported on 05/11/2022) 90 capsule 2 hydrOXYzine HCl (ATARAX) 25 mg tablet Take 1-2 tablets by mouth every 4 hours as needed for itching/rash. (Patient not taking: Reported on 05/11/2022) 30 tablet 0 No current facility-administered medications for this visit. Exam: Blood pressure 107/66, pulse 67, height 180.3 cm (5' 11 ), weight 77.1 kg (170 lb), SpO2 100 %. Body mass index is 23.71 kg/m . Station and Gait: favoring the left lower extremity Range of Motion: F&E both hurt, worsened when he does any twisting Motor: Has Normal LE motor function Sensory: bilat N/T, L>R below the knees Reflexes: diminished LEFT achilles reflex Pain on Palpation: has LBP at L-S junction Positive LEFT LSR Imaging: The following study/studies were reviewed with the patient during the visit: His September 2021 lumbar MRI scan was reviewed with him during today's office visit. He has uncharacteristically severe disc degeneration at the bottom 3 levels for his age. At each disc, there are bulges in the foraminal regions narrowing accordingly, but the left L5 nerve root seems to be the most affected. This is the nerve that we tried to inject with recent TFESI which was done bilateral since he had some lesser right-sided symptoms as well. Assessment/Plan: Encounter Diagnosis ICD-10-CM 1. Spinal stenosis of lumbar region without neurogenic claudication M48.061 2. Degeneration of lumbar or lumbosacral intervertebral disc M51.37 RTC: on an as-needed basis (PRN) Other/Discussion: He had limited improvement with lumbar epidural steroid injection. He still has appreciable neurologic deficit and diminishment of day-to-day function in terms of activities.He has a positive left SLR and diminished/absent left Achilles reflex on top of central lumbosacral pain. He indicates that he is willing to stop smoking if needed to proceed with surgical consideration I would like him to consult with neurosurgery to gain their input regarding his overall situation. Time spent: 25 minutes today with this patient visit. This includes [id number] time, review of chart records regarding conservative care history, spine-pertinent imaging, and communication/care coordination with referring provider, problem-specific history-taking and counseling/education regarding treatment options. This document has been created with the use of voice recognition technology. It may contain inaccuracies: (e.g. misspellings, inaccurate syntax or word sense) that have escaped review. Zohra Savage MA documented in this encounter [facility] 08-09-2022 Miscellaneous Notes Patient returned call and given message below. Patient states he does not need the original paperwork. Completed [facility] paperwork faxed to [facility] ATTN: Delilah Estrada at number listed on [employer] ([phone]). Copy also uploaded to patients chart. TC to patient to ask if he needs original paperwork. No answer and VM box not set up. Please try again later. (Originals in Tiffany's fax folder). WILLIE Warren [facility] paperwork completed. Please fax to ATTN: Delilah Estrada at [phone]. Please make copy for our records and let patient know her can cigar packer and picker originals if needed. Tiffany Sun APRN.CNP documented in this encounter [facility] 08-09-[address] Camacho reviewed patient's case as recommended by Aaliyah Camacho agrees to proceed with Bilateral L4-L5 Lumbar TFESI Patient may need t consider Back on TREK or Chronic Pain Program in future documented in this encounter [facility] 08-09-2022 Note HNO ID: [id number] Author: Tiffany Sun APRN.MANAGER PRODUCE Service: ? Author Type: Nurse Practitioner Type: Progress Notes Filed: 08/09/2022 9:03 AM Note Text: 08/09/2022 Patient presents with: ED Follow-up: Saw in [facility] ER 08/08/22, ER doc said acute bronchitis, employer is stating you need FMLA because he will be off for 4 days SUBJECTIVE: This is a 32 year old that is here today for Above Complaints.. Started with sore throat on 08/04/2022 after daughter was diagnosed strep throat. Went to ER on 08/08/2022. Treated with Augmentin which he is taking and tolerating without side effects. Reports ER doctor told him to be off work until 08/13/2022. Still with sore throat. Also admits to occasional chills, rhinorrhea and headache. Using OTC chloraseptic spray with mild relief. Denies fevers, nasal congestion, ear pain, difficulty swallowing, SOB, dyspnea or wheezing Depression screening indicates depression. Patient reports this comes from the fact he has chronic back pain and he feels pain management is not helping much. He is going to see another doctor for second opinion. Does not want to take medication for depression. Denies SI, HI or insomnia ER report reviewed PAST MEDICAL HISTORY Diagnosis Date DDD (degenerative disc disease), lumbar Seeing Dr. 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 MEDICATIONS Current Outpatient Medications Medication Sig amoxicillin-clavulanic acid (AUGMENTIN) 875-125 mg per tablet Take 875 mg by mouth. For bronchitis celecoxib (CELEBREX) 200 mg capsule Take 1 capsule by mouth once daily. gabapentin (NEURONTIN) 300 mg capsule Take 1 capsule by mouth three times daily for 90 days. (Patient not taking: Reported on 05/11/2022) hydrOXYzine HCl (ATARAX) 25 mg tablet Take 1-2 tablets by mouth every 4 hours as needed for itching/rash. (Patient not taking: Reported on 05/11/2022) No current facility-administered medications for this visit. Medications and allergies reviewed by this provider. SOCIAL HISTORY Social History Tobacco Use Smoking status: Every Day Packs/day: 0.50 Years: 13.00 Pack years: 6.50 Types: Cigarettes Smokeless tobacco: Former Types: Chew Quit date: 09/18/2008 Substance Use Topics Alcohol use: Yes Comment: rarely Drug use: Yes Frequency: 3.0 times per week Types: Marijuana REVIEW OF SYSTEMS All other reviewed and negative other than HPI. OBJECTIVE: BP 118/78 Pulse 82 Temp 36.4 ?C (97.5 ?F) Resp 18 Wt 77.7 kg (171 lb 3.2 oz) SpO2 99% BMI 23.88 kg/m? . Vital signs reviewed by this provider. APPEARANCE Well appearing, alert, in no acute distress, well-hydrated, well nourished. EYES conjunctiva and sclera normal. EARS External ears normal, canals clear THROAT mild erythema NECK Supple, no adenopathy HEART RRR with normal S1 and S2, no murmurs, no gallops, no JVD appreciated LUNG clear to auscultation. No wheezes, rhonchi or rales SKIN Skin color, texture, turgor normal, no suspicious rashes or lesions to exposed skin COVID-19 VACCINE(1) Never done PNEUMOCOCCAL(2 - PCV) due on 09/18/2017 INFLUENZA(Season Ended) due on 11/09/2022 DTAP,TDAP,TD(8 - Td or Tdap) due on 09/18/2026 HEPATITIS B Completed DEPRESSION ASSESSMENT Completed HEPATITIS C SCREENING Completed HIV SCREENING Completed ASSESSMENT/PLAN: 1. Sore throat - ICD9: 462, ICD10: J02.9 (primary diagnosis) - suspect viral - no red flag symptoms or exam findings - red flag symptoms discussed, verbalizes understanding - Discussed supportive care treatment with fluids, rest and analgesia. - The patient may also use OTC decongestants prn, OTC cough and cold meds as needed, and warm salt water gargles, throat lozenges and/or OTC throat spray as needed. - The patient should follow up in 3-5 days if symptoms persist or worsen - Call back if drooling, increased temperature, symptoms of dehydration and/or still sick in one week - not sure why he would need to be off work for this amount of time, but will honor ER note for this as I can see they did tell him to be off this long - will complete FMLA paperwork and have faxed - may return to work on 08/13/2022 without restrictions - complete entire course of antibiotics, to ER with red flag symptoms 2. Depression, unspecified depression type - ICD9: 311, ICD10: F32.A - declines medication at this time - counseling encouraged - DEPRESSION SCREENING/ASSESSMENT - follow-up as needed Tiffany Sun APRN.CNP Prescription instructions reviewed with patient as applicable. Patient advised if symptoms do not improve or if symptoms worsen sooner, to contact their primary care physician. Potential red flag symptoms discussed with the patient. Reviewed appropriate action plan to take (more content not included)... [facility] 08-09-2022 Instructions iTffany Sun APRN.CNP - 08/09/2022 8:31 AM EDT May return to work on 08/09/2022 without restrictions documented in this encounter [facility] 08-09-2022 History of Present illness Narrative 08/09/2022 Patient presents with: ED Follow-up: Saw in [facility] ER 08/08/22, ER doc said acute bronchitis, employer is stating you need FMLA because he will be off for 4 days SUBJECTIVE: This is a 32 year old that is here today for Above Complaints.. Started with sore throat on 08/04/2022 after daughter was diagnosed strep throat. Went to ER on 08/08/2022. Treated with Augmentin which he is taking and tolerating without side effects. Reports ER doctor told him to be off work until 08/13/2022. Still with sore throat. Also admits to occasional chills, rhinorrhea and headache. Using OTC chloraseptic spray with mild relief. Denies fevers, nasal congestion, ear pain, difficulty swallowing, SOB, dyspnea or wheezing Depression screening indicates depression. Patient reports this comes from the fact he has chronic back pain and he feels pain management is not helping much. He is going to see another doctor for second opinion. Does not want to take medication for depression. Denies SI, HI or insomnia ER report reviewed PAST MEDICAL HISTORY Diagnosis Date DDD (degenerative disc disease), lumbar Seeing Dr. 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 MEDICATIONS Current Outpatient Medications Medication Sig amoxicillin-clavulanic acid (AUGMENTIN) 875-125 mg per tablet Take 875 mg by mouth. For bronchitis celecoxib (CELEBREX) 200 mg capsule Take 1 capsule by mouth once daily. gabapentin (NEURONTIN) 300 mg capsule Take 1 capsule by mouth three times daily for 90 days. (Patient not taking: Reported on 05/11/2022) hydrOXYzine HCl (ATARAX) 25 mg tablet Take 1-2 tablets by mouth every 4 hours as needed for itching/rash. (Patient not taking: Reported on 05/11/2022) No current facility-administered medications for this visit. Medications and allergies reviewed by this provider. SOCIAL HISTORY Social History Tobacco Use Smoking status: Every Day Packs/day: 0.50 Years: 13.00 Pack years: 6.50 Types: Cigarettes Smokeless tobacco: Former Types: Chew Quit date: 09/18/2008 Substance Use Topics Alcohol use: Yes Comment: rarely Drug use: Yes Frequency: 3.0 times per week Types: Marijuana REVIEW OF SYSTEMS All other reviewed and negative other than HPI. OBJECTIVE: BP 118/78 Pulse 82 Temp 36.4 C (97.5 F) Resp 18 Wt 77.7 kg (171 lb 3.2 oz) SpO2 99% BMI 23.88 kg/m . Vital signs reviewed by this provider. APPEARANCE Well appearing, alert, in no acute distress, well-hydrated, well nourished. EYES conjunctiva and sclera normal. EARS External ears normal, canals clear THROAT mild erythema NECK Supple, no adenopathy HEART RRR with normal S1 and S2, no murmurs, no gallops, no JVD appreciated LUNG clear to auscultation. No wheezes, rhonchi or rales SKIN Skin color, texture, turgor normal, no suspicious rashes or lesions to exposed skin COVID-19 VACCINE(1) Never done PNEUMOCOCCAL(2 - PCV) due on 09/18/2017 INFLUENZA(Season Ended) due on 11/09/2022 DTAP,TDAP,TD(8 - Td or Tdap) due on 09/18/2026 HEPATITIS B Completed DEPRESSION ASSESSMENT Completed HEPATITIS C SCREENING Completed HIV SCREENING Completed ASSESSMENT/PLAN: 1. Sore throat - ICD9: 462, ICD10: J02.9 (primary diagnosis) - suspect viral - no red flag symptoms or exam findings - red flag symptoms discussed, verbalizes understanding - Discussed supportive care treatment with fluids, rest and analgesia. - The patient may also use OTC decongestants prn, OTC cough and cold meds as needed, and warm salt water gargles, throat lozenges and/or OTC throat spray as needed. - The patient should follow up in 3-5 days if symptoms persist or worsen - Call back if drooling, increased temperature, symptoms of dehydration and/or still sick in one week - not sure why he would need to be off work for this amount of time, but will honor ER note for this as I can see they did tell him to be off this long - will complete [facility] paperwork and have faxed - may return to work on 08/13/2022 without restrictions - complete entire course of antibiotics, to ER with red flag symptoms 2. Depression, unspecified depression type - ICD9: 311, ICD10: F32.A - declines medication at this time - counseling encouraged - DEPRESSION SCREENING/ASSESSMENT - follow-up as needed Tiffany Sun APRN.CNP Prescription instructions reviewed with patient as applicable. Patient advised if symptoms do not improve or if symptoms worsen sooner, to contact their primary care physician. Potential red flag symptoms discussed with the patient. Reviewed appropriate action plan to take if red flag symptoms occur. Patient agreeable to treatment plan. I spent a total of 25 minutes on the date of the service which included preparing to see the patient, [id number] patient care, completing clinical documentation, obtaining and/or reviewing separately obtained history, performing a medically appropriate examination, and counseling and educating the patient/family/caregiver. documented in this encounter [facility] 07-26-2022 Note HNO ID: [id number] Author: Catina Lloyd PA-C Service: ? Author Type: Physician Tower Erector Helper Type: Progress Notes Filed: 07/26/2022 4:17 PM Note Text: Catina Lloyd PA-C [facility] [address] [facility] [address] [place] [address] Dear Nancy Daly MD, Kate Wharton is a 32 year old individual who comes in to the office on 07/26/2022 for follow-up regarding the Lumbar spine. Has pain in the lower back, both hips, and groin areas, both legs- pain goes down to the toes. Level of the pain is at 8/10. Patient is here alone today. Subjective: Compared to the last visit, symptoms have been worse. Mr. Wharton is here after injection, injection helped at least 80% in the first 2.5 months. He indicates that he has been off work for the past 2 and half weeks on FMLA because he has had a flareup of symptoms. He is requesting further FMLA today to remain off work until a point where he is less symptomatic. ROS: Since last visit-patient DENIES fevers, chills, night sweats, unexpected weight loss or gain, abdominal pain, paralysis, loss of bowel/bladder control, stumbling gait, loss of coordination. and Since last visit--patient indicates NEW presence of: fevers, chills, sweats, numbness or tingling in the legs, and weakness of legs and hands. Current Outpatient Medications Medication Sig Dispense Refill celecoxib (CELEBREX) 200 mg capsule Take 1 capsule by mouth once daily. (Patient not taking: Reported on 07/26/2022) 30 capsule 2 gabapentin (NEURONTIN) 300 mg capsule Take 1 capsule by mouth three times daily for 90 days. (Patient not taking: Reported on 05/11/2022) 90 capsule 2 hydrOXYzine HCl (ATARAX) 25 mg tablet Take 1-2 tablets by mouth every 4 hours as needed for itching/rash. (Patient not taking: Reported on 05/11/2022) 30 tablet 0 No current facility-administered medications for this visit. Exam: Blood pressure 109/62, pulse 69, height 180.3 cm (5' 11 ), weight 78.3 kg (172 lb 11.2 oz), SpO2 99 %. Body mass index is 24.09 kg/m?. Station and Gait: Normal stance, normal gait. Range of Motion: Normal but he complains of pain with extremes of motion in each direction Motor: 5/5 throughout bilateral lower extremities except left hip flexor at 4/5. Sensory: Normal today, but describes intermittent bilateral radiating N/T to the medial aspect of his thighs and lower legs and down to the big toes Reflexes: 4/4 to bilateral patella and 2/4 to bilateral Achilles Pain on Palpation: Over the low back and sciatic notches Imaging: The following study/studies were reviewed with the patient during the visit: We reviewed his March 2021 lumbar MRI and September 2021 lumbar MRI scan as well as plain radiographs. He has L3 through S1 disc degeneration and bulges at all levels. At L3-4, there does not appear to be severe foraminal compromise. At L4-5, there is bilateral foraminal narrowing and bulge primarily on the left side. At L5-S1, he has what appears to be a smaller central disc bulge improved since March 2021 MRI but affecting both foraminal regions as well. Assessment/Plan: Encounter Diagnosis ICD-10-CM 1. Radiculopathy of lumbar region M54.16 SPINE INTERVENTION PROCEDURE 2. Spinal stenosis of lumbar region without neurogenic claudication M48.061 SPINE INTERVENTION PROCEDURE RTC: About 1 month after his next injection Other/Discussion: We had a lengthy discussion during today's office visit about the nature of his symptoms. He has symptoms that do not seem to correlate with any particular dermatome from the low back. He states that he got 80% better with facet injections. He does not want to repeat these feeling in his heart of hearts that he has a separate low back nerve problem instead of facet issues. It is difficult to determine what level to approach based on his symptoms. The closest I might guess would be the L4-5 level to see if he may have some nerve irritation going on there. Regarding his work-I would not recommend further off work due to his symptoms. He has had chronic symptoms without any severe neurologic deficit. I am of the opinion today that his ongoing mobility and strengthening and day-to-day activities would benefit his overall spine health and that any pain avoidance behaviors would tend to lessen his overall spine health in the long run. I think we are dealing with a chronic symptom set that is not well-defined. Time spent: 35 minutes today with this patient visit. This includes ruch-cu-irpr time, review of chart records regarding conservative care history, spine-pertinent imaging, and communication/care coordination with referring provider, problem-specific history-taking and counseling/education regarding treatment options. This document has been created with the use of voice recognition technology. It may contain inaccuracies: (e.g. misspellings, inaccu (more content not included)... [facility] 05-11-2022 Note HNO ID: [id number] Author: Catina Lloyd PA-C Service: ? Author Type: Physician Tower Erector Helper Type: Progress Notes Filed: 05/11/2022 10:47 AM Note Text: [facility] [address] [facility] [address] [place] [address] Dear Nancy Daly MD, Kate Nuñez is a 32 year old individual who comes in to the office on 05/11/2022 for follow-up regarding their Lumbar spine. Has lower back and hips pain, just sometimes pain can shoot down to the legs. Sometimes has pain in the groin areas. Numbness still there. Right leg is worse. Level of the pain is at 6/10. Patient is here alone today. Subjective: Compared to the last visit, symptoms have been improved. Mr. Wharton is here for the injection follow up. Injection helped about 75%. ROS: Since last visit-patient DENIES fevers, chills, night sweats, unexpected weight loss or gain, abdominal pain, progressive weakness, paralysis, loss of bowel/bladder control, saddle numbness, stumbling gait, loss of coordination. Current Outpatient Medications Medication Sig Dispense Refill celecoxib (CELEBREX) 200 mg capsule Take 1 capsule by mouth once daily. 30 capsule 2 gabapentin (NEURONTIN) 300 mg capsule Take 1 capsule by mouth three times daily for 90 days. (Patient not taking: Reported on 05/11/2022) 90 capsule 2 hydrOXYzine HCl (ATARAX) 25 mg tablet Take 1-2 tablets by mouth every 4 hours as needed for itching/rash. (Patient not taking: Reported on 05/11/2022) 30 tablet 0 No current facility-administered medications for this visit. Exam: Blood pressure 107/65, pulse 76, height 180.3 cm (5' 11 ), weight 82.1 kg (181 lb), SpO2 99 %. Body mass index is 25.24 kg/m?. Station and Gait: Normal stance, normal gait. Range of Motion: Mild low back pain with extremes of motion Motor: Normal throughout lower extremities Sensory: Denies any numbness and tingling today Pain on Palpation: Mild central low back pain Imaging: The following study/studies were reviewed with the patient during the visit: Most recent lumbar MRI scan September 2021 with moderate lumbar facet arthrosis and left L4-5 disc bulge and shallow L5-S1 bilateral bulge Assessment/Plan: Encounter Diagnosis ICD-10-CM 1. Lumbar facet arthropathy M47.816 RTC: on an as-needed basis (PRN) Other/Discussion: He will come back if symptoms return or appreciably worsen. We talked about recommendations for low impact exercise such as swimming, bicycling, walking He is doing well and back to work without severe recurrent symptoms since his injection. He stopped taking gabapentin because side effects were bothering him. He may be able to tolerate nighttime gabapentin if symptoms bother him at night in the future. Time spent: 25 minutes today with this patient visit. This includes [id number]-tg-pvtu time, review of chart records regarding conservative care history, spine-pertinent imaging, and communication/care coordination with referring provider, problem-specific history-taking and counseling/education regarding treatment options. This document has been created with the use of voice recognition technology. It may contain inaccuracies: (e.g. misspellings, inaccurate syntax or word sense) that have escaped review. Zohra Savage MA [facility] 04-20-2022 Miscellaneous Notes Patient phones requesting refills as follows: Requested Prescriptions Pending Prescriptions Disp Refills celecoxib (CELEBREX) 200 mg capsule 30 capsule 2 Sig: Take 1 capsule by mouth once daily. ADRIANA-03/09/22 Labs-10/03/21 NOV-none med filled 03/09/22 Please review and advise. Olivia Brown LPN documented in this encounter [facility] 03-16-2022 Miscellaneous Notes Aaliyah Lloyd PA-C referring patient to Dr. Camacho for injection Patient presented with Lower back pain, left leg pain and numbness in the left foot. Aaliyah Lloyd PA-C recommending Bilateral L4-L5, L5-S1 Lumbar Facet Medial Branch Nerve Blocks Dr. Camacho agrees to proceed with injection as recommended. documented in this encounter [facility] 03-09-2022 Note HNO ID: [id number] Author: Catina Lloyd PA-C Service: ? Author Type: Physician Tower Erector Helper Type: Progress Notes Filed: 03/09/2022 2:13 PM Note Text: Catina Lloyd [facility]C [facility] [address] [place] [address] Dear Nancy Daly MD, Kate Wharton is a 32 year old individual who comes in to the office on 03/09/2022 for follow-up regarding their Lumbar spine. Level of the pain is at 8/10. Lower back pain, left leg pain and numbness in the left foot. Patient is here alone today. Subjective: Compared to the last visit, symptoms have been worse. Mr. Wharton is here for the worsening pain He is also here for getting a new FMLA form filled out. ROS: Since last visit-patient DENIES fevers, chills, unexpected weight loss or gain, abdominal pain, paralysis, loss of bowel/bladder control, saddle numbness. and Since last visit--patient indicates NEW presence of: stumbling, and loss of coordination, dizziness, weakness in the leg, night sweats. Current Outpatient Medications Medication Sig Dispense Refill celecoxib (CELEBREX) 200 mg capsule Take 1 capsule by mouth once daily. 30 capsule 2 methocarbamol (ROBAXIN) 500 mg tablet Take 1 tablet by mouth twice daily as needed. 60 tablet 1 hydrOXYzine HCl (ATARAX) 25 mg tablet Take 1-2 tablets by mouth every 4 hours as needed for itching/rash. (Patient taking differently: Take 25-50 mg by mouth every 4 hours as needed for itching/rash. Advised to only use at night d/t drowsiness.) 30 tablet 0 No current facility-administered medications for this visit. Exam: Blood pressure 109/57, pulse 77, height 180.3 cm (5' 11 ), weight 84.4 kg (186 lb), SpO2 99 %. Body mass index is 25.94 kg/m?. Station and Gait: Normal stance, normal gait. Range of Motion: Painful in all directions at lumbosacral junction Motor: No focal motor deficits identified Sensory: He describes intermittent left foot numbness that is nondermatomal Pain on Palpation: Lumbosacral junction in the midline Imaging: The following study/studies were reviewed with the patient during the visit: Lumbar MRI scan from October 05, 2021 and lumbar plain radiographs from March 09, 2022. The October 05, 2021 MRI was compared to a March 28, 2021 MRI scan. There did not appear to be any significant changes in the interval between the 2 scans. He does have multilevel disc degeneration L3 through S1 with varying degrees of central and left-sided disc bulges and foraminal narrowing at multiple levels. There is facet disease noted worst at L4 through S1 On radiographs, he had mild lumbar scoliosis with apex toward the right side. There does not appear to be significant leg length discrepancy or hip joint arthritis. Lateral views do not show listhesis or fracture and there does not appear to be significant focal disc space height loss. Assessment/Plan: Encounter Diagnosis ICD-10-CM 1. Spinal stenosis of lumbar region without neurogenic claudication M48.061 gabapentin (NEURONTIN) 300 mg capsule 2. Radiculopathy, lumbar region M54.16 gabapentin (NEURONTIN) 300 mg capsule RTC: 2 to 4 weeks following upcoming lumbar facet injections L4 through S1 bilaterally. This is a repeat of a prior order that was placed in October when I saw him last. Other/Discussion: He has already spoken to his primary care physician about his FMLA form. The patient had an FMLA form that allowed him to take 2 to 3 hours/day off for scheduled physical therapy visits and he has basically been taking 2 to 3 days off per month due to his low back pain now. He reports that his PCP told him he would fill out the new form to allow for 2 to 3 days/month off due to his back problems, but would not fill out the section that would identify specific ongoing job duty restrictions. I would agree with that as well. I would concur with the primary care physician in this regard. Time spent: 30 minutes today with this patient visit. This includes [id number]-yk-[id number] time, review of chart records regarding conservative care history, spine-pertinent imaging, and communication/care coordination with referring provider, problem-specific history-taking and counseling/education regarding treatment options. This document has been created with the use of voice recognition technology. It may contain inaccuracies: (e.g. misspellings, inaccurate syntax or word sense) that have escaped review. Zohra Savage MA [facility] 03-09-2022 History of Present illness Narrative Catina Lloyd PA-C [facility] [address] [facility] [address] [place] [address] Dear Nancy Daly MD, Kate Savannah is a 32 year old individual who comes in to the office on 03/09/2022 for follow-up regarding their Lumbar spine. Level of the pain is at 8/10. Lower back pain, left leg pain and numbness in the left foot. Patient is here alone today. Subjective: Compared to the last visit, symptoms have been worse. Mr. Wharton is here for the worsening pain He is also here for getting a new FMLA form filled out. ROS: Since last visit-patient DENIES fevers, chills, unexpected weight loss or gain, abdominal pain, paralysis, loss of bowel/bladder control, saddle numbness. and Since last visit--patient indicates NEW presence of: stumbling, and loss of coordination, dizziness, weakness in the leg, night sweats. Current Outpatient Medications Medication Sig Dispense Refill celecoxib (CELEBREX) 200 mg capsule Take 1 capsule by mouth once daily. 30 capsule 2 methocarbamol (ROBAXIN) 500 mg tablet Take 1 tablet by mouth twice daily as needed. 60 tablet 1 hydrOXYzine HCl (ATARAX) 25 mg tablet Take 1-2 tablets by mouth every 4 hours as needed for itching/rash. (Patient taking differently: Take 25-50 mg by mouth every 4 hours as needed for itching/rash. Advised to only use at night d/t drowsiness.) 30 tablet 0 No current facility-administered medications for this visit. Exam: Blood pressure 109/57, pulse 77, height 180.3 cm (5' 11 ), weight 84.4 kg (186 lb), SpO2 99 %. Body mass index is 25.94 kg/m . Station and Gait: Normal stance, normal gait. Range of Motion: Painful in all directions at lumbosacral junction Motor: No focal motor deficits identified Sensory: He describes intermittent left foot numbness that is nondermatomal Pain on Palpation: Lumbosacral junction in the midline Imaging: The following study/studies were reviewed with the patient during the visit: Lumbar MRI scan from October 05, 2021 and lumbar plain radiographs from March 09, 2022. The October 05, 2021 MRI was compared to a March 28, 2021 MRI scan. There did not appear to be any significant changes in the interval between the 2 scans. He does have multilevel disc degeneration L3 through S1 with varying degrees of central and left-sided disc bulges and foraminal narrowing at multiple levels. There is facet disease noted worst at L4 through S1 On radiographs, he had mild lumbar scoliosis with apex toward the right side. There does not appear to be significant leg length discrepancy or hip joint arthritis. Lateral views do not show listhesis or fracture and there does not appear to be significant focal disc space height loss. Assessment/Plan: Encounter Diagnosis ICD-10-CM 1. Spinal stenosis of lumbar region without neurogenic claudication M48.061 gabapentin (NEURONTIN) 300 mg capsule 2. Radiculopathy, lumbar region M54.16 gabapentin (NEURONTIN) 300 mg capsule RTC: 2 to 4 weeks following upcoming lumbar facet injections L4 through S1 bilaterally. This is a repeat of a prior order that was placed in October when I saw him last. Other/Discussion: He has already spoken to his primary care physician about his FMLA form. The patient had an FMLA form that allowed him to take 2 to 3 hours/day off for scheduled physical therapy visits and he has basically been taking 2 to 3 days off per month due to his low back pain now. He reports that his PCP told him he would fill out the new form to allow for 2 to 3 days/month off due to his back problems, but would not fill out the section that would identify specific ongoing job duty restrictions. I would agree with that as well. I would concur with the primary care physician in this regard. Time spent: 30 minutes today with this patient visit. This includes [id number]-qa-xjjm time, review of chart records regarding conservative care history, spine-pertinent imaging, and communication/care coordination with referring provider, problem-specific history-taking and counseling/education regarding treatment options. This document has been created with the use of voice recognition technology. It may contain inaccuracies: (e.g. misspellings, inaccurate syntax or word sense) that have escaped review. Zohra Savage MA documented in this encounter [facility] 03-09-2022 Note HNO ID: [id number] Author: RT Alisia(R) Service: Nuclear Medicine Author Type: Technologist Type: Progress Notes Filed: 03/09/2022 10:23 AM Note Text: Radiology Service Progress Note PATIENT NAME: Kate Wharton DATE OF SERVICE: March 09, 2022 TIME: 10:07 AM PATIENT IDENTITY VERIFICATION COMPLETED USING TWO (2) IDENTIFIERS: Name and Date of confirmed by patient verbally. FALL SCREENING: Has the patient had 2 falls in the last year or 1 fall with injury or currently using an Ambulatory Assistive Device (Walker, Cane, Wheelchair, Crutches, etc.)? No PATIENT GENDER DATA: Male PATIENT RELEVANT IMPLANT DATA REVIEWED: Not Applicable RADIOLOGY DEPARTMENT: General X-ray: Exam(s) Completed: Spine X-Ray(s): Lumbar AP / LAT / L5-S1 / FLEX-EXT PERIPHERAL IV DATA: Not applicable SIGNED BY: RT Alisia(R) March 09, 2022 10:07 AM [facility] 03-09-2022 Note HNO ID: [id number] Author: Nancy Daly MD Service: ? Author Type: Physician Type: Progress Notes Filed: 03/09/2022 2:17 PM Note Text: Chief Complaint Patient presents with: FMLA Paperwork: And restrictions-patient reports that due to missing more work than he is supposed to they are requesting re-evaluation. HPI Kate Wharton is a 32 year old male who presents here today for Above Complaints.. Previous HPI 10/05/2021: Patient was evaluated last November by Dr. Silvestre for complaint of chronic lower back pain related to skateboarding accident at age 16. Had been on disability until 11/2019 when he returned to work. Requested FMLA at that time for following HPI: Kate Wharton is seen for 1.5 month follow up. He is feeling worse. accumulated 3 points . the low back pain is constant, tight, varying intensity, worse with movement, prolong sitting, better with . intermittent leg pain to groin, rare leg numbness 2x/week- < 1 hour The distribution of symptoms is unchanged. Pain is currently 6 out of 10. Referred to PT and started on Mobic for two weeks and zanaflex for muscle spasms and FMLA was completed by their office. Pain did not improve and MRI obtained as noted below. Recommended [facility] which patient did not follow up with in April. No contact with spine health until yesterday when he was requesting repeat FMLA. They recommended he schedule visit with their office or contact us to repeat his FMLA. Today, patient states that he was unable to schedule an appointment with Dr. Silvestre because he no longer takes his insurance. Is trying to schedule OV with new electronic health records specialist. Complaining of recurrent left lower back pain which started about 5 days ago after sitting on bleachers for a prolonged period of time. Described as constant sharp/aching pain, currently 8/10, with radiation down his left left to his toes. Exacerbated with sitting and standing for long periods of time, bending. Treating with 400 mg Advil this morning, but has not help with pain. Tried his meloxicam without improvement. Has been resting at home and applying heat. Admits to mild numbness in left groin, weakness in his legs. Denies loss of bowel/bladder control. Patient states that he feels like something has changed in his back. Patient reports last flare up of back pain was about 2 months ago and lasted about 2 days. Based on information above we completed intermittent FMLA with episodes 1-2 times per month with 1 day per episode. Referred to ortho spine Dr. Lloyd with OV 11/01 who recommended xrays and referral to pain management for lumbar facet injections. Patient's xrays have not been completed and he has not followed up with pain management as directed. He states that he told Dr. Lloyd that his previous injections did not help with his back pain, though this is not reflected in his note. Patient states that this is just a band aid and would prefer surgery to this. Today states that he is getting severe left lower back pain about every 2 weeks which lasts for about 3-4 days at a time. Radiates down his left leg down to his ankle as well as up his back and into his left shoulder. Currently -09/17. States that he takes the Celebrex on a daily basis and stretches at home on a BID basis. Uses heating pad PRN. Takes the Zanaflex on the days where he has severe pain which helps him fall asleep, but does not resolve his pain. Admits to weakness in his left leg when pain is flared up. Denies new fall/injury, saddle anesthesia, loss of bowel/bladder control. Past medical history, appointments, medications, allergies reviewed. Previous Medical History PAST MEDICAL HISTORY Diagnosis Date DDD (degenerative disc disease), lumbar Seeing Dr. 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 Marijuana use Osteoarthritis of lumbar spine PMH - PAST MEDICAL HISTORY OF 08/21/2002 normal color vision Tobacco use Previous Surgical History PAST SURGICAL HISTORY Procedure Laterality Date TONSILLECTOMY AND ADENOIDECTOMY TYMPANOSTOMY LOCAL/TOPICAL ANESTHESIA 06/11/00 Family History FAMILY HISTORY Problem Relation Age of Onset Cancer Paternal Grandmother 03/2005 other (stroke,heart) Paternal Grandmother paternal side Breast Cancer Mother Emphysema Maternal Grandmother Patient Allergies ALLERGIES No Known Allergies Current Medications Current Outpatient Medications on File Prior to Visit Medication Sig tiZANidine (ZANAFLEX) 4 mg tablet 1 tab qhs hydrOXYzine HCl (ATARAX) 25 mg tablet Take 1-2 tablets by mouth every 4 hours as needed for itching/rash. (Patient taking differently: Take 25-50 mg by mouth every 4 hours as needed for itching/rash. Advised to only use at night d/t drowsiness.) celecoxib (CELEBREX) 200 mg capsule Take 1 capsule by mouth once daily. (Patient not taking: Reported on 03/09/2022) No current facility-a (more content not included)... [facility] 03-09-2022 History of Present illness Narrative Chief Complaint Patient presents with: FMLA Paperwork: And restrictions-patient reports that due to missing more work than he is supposed to they are requesting re-evaluation. HPI Kate Wharton is a 32 year old male who presents here today for Above Complaints.. Previous HPI 10/05/2021: Patient was evaluated last November by Dr. Silvestre for complaint of chronic lower back pain related to skateboarding accident at age 16. Had been on disability until 11/2019 when he returned to work. Requested FMLA at that time for following HPI: Kate Wharton is seen for 1.5 month follow up. He is feeling worse. accumulated 3 points . the low back pain is constant, tight, varying intensity, worse with movement, prolong sitting, better with . intermittent leg pain to groin, rare leg numbness 2x/week- < 1 hour The distribution of symptoms is unchanged. Pain is currently 6 out of 10. Referred to PT and started on Mobic for two weeks and zanaflex for muscle spasms and FMLA was completed by their office. Pain did not improve and MRI obtained as noted below. Recommended BETTYE which patient did not follow up with in April. No contact with spine health until yesterday when he was requesting repeat FMLA. They recommended he schedule visit with their office or contact us to repeat his FMLA. Today, patient states that he was unable to schedule an appointment with Dr. Silvestre because he no longer takes his insurance. Is trying to schedule OV with new electronic health records specialist. Complaining of recurrent left lower back pain which started about 5 days ago after sitting on bleachers for a prolonged period of time. Described as constant sharp/aching pain, currently 8/10, with radiation down his left left to his toes. Exacerbated with sitting and standing for long periods of time, bending. Treating with 400 mg Advil this morning, but has not help with pain. Tried his meloxicam without improvement. Has been resting at home and applying heat. Admits to mild numbness in left groin, weakness in his legs. Denies loss of bowel/bladder control. Patient states that he feels like something has changed in his back. Patient reports last flare up of back pain was about 2 months ago and lasted about 2 days. Based on information above we completed intermittent FMLA with episodes 1-2 times per month with 1 day per episode. Referred to ortho spine Dr. Lloyd with OV 11/01 who recommended xrays and referral to pain management for lumbar facet injections. Patient's xrays have not been completed and he has not followed up with pain management as directed. He states that he told Dr. Lloyd that his previous injections did not help with his back pain, though this is not reflected in his note. Patient states that this is just a band aid and would prefer surgery to this. Today states that he is getting severe left lower back pain about every 2 weeks which lasts for about 3-4 days at a time. Radiates down his left leg down to his ankle as well as up his back and into his left shoulder. Currently 6-09/17. States that he takes the Celebrex on a daily basis and stretches at home on a BID basis. Uses heating pad PRN. Takes the Zanaflex on the days where he has severe pain which helps him fall asleep, but does not resolve his pain. Admits to weakness in his left leg when pain is flared up. Denies new fall/injury, saddle anesthesia, loss of bowel/bladder control. Past medical history, appointments, medications, allergies reviewed. Previous Medical History PAST MEDICAL HISTORY Diagnosis Date DDD (degenerative disc disease), lumbar Seeing Dr. 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 Marijuana use Osteoarthritis of lumbar spine PMH - PAST MEDICAL HISTORY OF 08/21/2002 normal color vision Tobacco use Previous Surgical History PAST SURGICAL HISTORY Procedure Laterality Date TONSILLECTOMY & ADENOIDECTOMY <AGE 12 06/11/00 TYMPANOSTOMY LOCAL/TOPICAL ANESTHESIA 06/11/00 Family History FAMILY HISTORY Problem Relation Age of Onset Cancer Paternal Grandmother 03/2005 other (stroke,heart) Paternal Grandmother paternal side Breast Cancer Mother Emphysema Maternal Grandmother Patient Allergies ALLERGIES No Known Allergies Current Medications Current Outpatient Medications on File Prior to Visit Medication Sig tiZANidine (ZANAFLEX) 4 mg tablet 1 tab qhs hydrOXYzine HCl (ATARAX) 25 mg tablet Take 1-2 tablets by mouth every 4 hours as needed for itching/rash. (Patient taking differently: Take 25-50 mg by mouth every 4 hours as needed for itching/rash. Advised to only use at night d/t drowsiness.) celecoxib (CELEBREX) 200 mg capsule Take 1 capsule by mouth once daily. (Patient not taking: Reported on 03/09/2022) No current facility-administered medications on file prior to visit. Social History Social History Tobacco Use Smoking status: Every Day Packs/day: 0.50 Years: 13.00 Pack years: 6.50 Types: Cigarettes Smokeless tobacco: Former Types: Chew Quit date: 09/18/2008 Substance Use Topics Alcohol use: Yes Comment: rarely Drug use: Yes Frequency: 3.0 times per week Types: Marijuana Review of Symptoms REVIEW OF SYSTEMS See HPI EXAM: BP 110/72 Pulse 87 Resp 16 Wt 84.7 kg (186 lb 12.8 oz) SpO2 98% BMI 26.05 kg/m General Appearance: Well appearing, alert, in no acute distress, well-hydrated, well nourished.. Skin: Skin color, texture, turgor normal, no suspicious rashes or lesions. Back:no pain to palpation of vertebrae, reflexes are 2+ and symmetric, motor and sensory appear to be normal, no evidence of scoliosis. Positive for TTP over lumbar paraspinal muscles. Positive SLR with ipsilateral and contralateral leg. Limited ROM of DL spine to about 50 degrees with pain. Pain with normal extension and lateral flexion. Normal gait. Health Maintenance List COVID-19 VACCINE(1) Never done PNEUMOCOCCAL(2 - PCV) due on 09/18/2017 DEPRESSION ASSESSMENT Never done INFLUENZA(1) due on 11/09/2021 DTAP,TDAP,TD(8 - Td or Tdap) due on 09/18/2026 HEPATITIS B Completed HEPATITIS C SCREENING Completed HIV SCREENING Completed ASSESSMENT/PLAN: 1. Spinal stenosis of lumbar region without neurogenic claudication - ICD9: 724.02, ICD10: M48.061 (primary diagnosis) Patient with continued pain in his lower back causing him to miss more work than at his previous visit. Discussed with patient that I will update his FMLA to 2-3 days per month instead of 1-2, but he needs to meet us half way with his treatment and obtain the xray imaging ordered by ortho spine and follow up with injections as recommended. If not willing to follow up for injections, will have him return to ortho spine to discuss surgical intervention if appropriate. Will refill celebrex and start Robaxin for pain. Red flags for re-assessment reviewed with patient in detail. - CELECOXIB 200 MG CAPSULE 2. Chronic left-sided low back pain with left-sided sciatica - ICD9: 724.2, 724.3, 338.29, ICD10: M54.42, G89.29 See above. - CELECOXIB 200 MG CAPSULE 3. Lumbar spondylosis - ICD9: 721.3, ICD10: M47.816 See above. - CELECOXIB 200 MG CAPSULE Nancy Daly MD documented in this encounter [facility] 11-03-2021 Miscellaneous Notes All paperwork faxed to number below. Tameka Bartholomew LPN Patient's MRI was denied by insurance and will need appeal faxed to [phone] along with: coversheet with patient's and case information, a formal appeal letter and attach any pertinent supporting clinical documentation. Letter printed and signed. Please fax with his note from 10/05 to number above with other requested information. documented in this encounter [facility] 11-01-2021 History of Present illness Narrative Images from the original note were not included. Catina Lloyd PA-C [facility] [address] [id number] 11/01/2021 ASSESSMENT AND PLAN: Assessment : Encounter Diagnosis ICD-10-CM 1. Lumbar facet arthropathy M47.816 CONSULT TO SPINE INTERVENTION CONSULT TO CHIROPRACTOR 2. Spinal stenosis of lumbar region without neurogenic claudication M48.061 XR LUMBAR MOTION 4V AP/LAT/ FLEX/EXT CONSULT TO SPINE INTERVENTION CONSULT TO CHIROPRACTOR 3. Chronic left-sided low back pain with left-sided sciatica M54.42 XR LUMBAR MOTION 4V AP/LAT/ FLEX/EXT G89.29 CONSULT TO SPINE INTERVENTION CONSULT TO CHIROPRACTOR Discussion: Mr. Wharton is a 31-year-old man here for evaluation of low back pain and left lower extremity symptoms on a chronic basis. He has been seen by my colleague Dr. Gray Mcdonald. he has a fairly difficult job and describes that in some detail during today's visit. He has had ongoing Celebrex, tizanidine, Tylenol. He has finished a course of PT about a year ago. He relates some of his back symptoms and problems to an old skateboarding accident when he was 16 years old. He mobilizes well from sitting standing posture. His stance is normal but gait is slightly favoring the left side. He has normal sensation in the lower extremities. Reflexes are diminished on the left Achilles and mildly hyperreflexic throughout the remainder of the l lower extremities He has mildly positive straight leg raise and mildly positive contralateral SLR. There is slight weakness in left EHL at 4/5 Low back motion is most painful in extension and somewhat painful in left sidebending and deeper flexion. He had 2 MRI scans in the past 7 months. Both of these show DDD L3 through S1 advanced beyond his years chronologically. He has disc bulge on the left side at both L4-5 and L5-S1 and there does not appear to be significant interval change between the 2 scans There is some facet disease appreciated in lower lumbar segments as well I would have him go ahead and try lumbar facet injections and we will see if this gives him some appreciable help he has seen Dr. Ryne Camacho in the past for prior injections and did well with those. If this helps his back pain quite a bit, we may either repeat this or start to try to address the leg pain depending on his symptoms I will have him get standing lumbar plain radiographs and dynamic flexion-extension views Plan : DIAGNOSTIC TESTING: -X-ray views will be obtained to better evaluate bony structures. -Dynamic plain radiographs of the Lumbar spine are ordered. REFERAL FOR SERVICES: -Consult to Pain Anesthesia: The purpose will be for both diagnostic and therapeutic purposes. The patient is instructed to pay attention to the amount of pain during the anesthetic phase, and during that time to perform the activities that typically exacerbate the pain to determine what percentage of relief is gained. The patient is instructed that the steroid phase of the injection may take up to a week or more to provide relief, and to pay attention to the percentage of relief obtained during the steroid phase. If the steroid phase gives significant pain relief, the procedure can be repeated. ACTIVITY RECOMMENDATIONS: -The patient is encouraged to avoid bed rest and maintain normal activity. FOLLOW-UP: -The patient is instructed to follow up after studies are complete. This document has been created with the use of voice recognition technology. It may contain inaccuracies: (e.g. misspellings, inaccurate syntax or word sense) that have escaped review. Time spent: 45 minutes today with this patient visit. This includes [id number] time, review of chart records regarding conservative care history, spine-pertinent imaging, and communication/care coordination with referring provider, problem-specific history-taking and counseling/education regarding treatment options. cc: Nancy Daly [address] [place] [id number] Results of consultation to be transmitted via electronic medical record for those providers who practice within [facility] or with access to [employer] via [employer], or via letter. ____ ################################## ################################## #### CHIEF COMPLAINT: Patient is here for the lower back pain, sometimes pain goes down to the left leg and stops in the toes. Level of the pain is at 6/10. Pain started when he was 16 years old ( has skateboarding accident). 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 Has been doing some thinking about changing jobs. NON-OPERATIVE CARE: Medication(s): He has tried the following for relief of his symptoms: OTC Tylenol Muscle relaxant: Tizanidine` Celecoxib Physical Therapy: He has had physical therapy for his current symptoms. This was completed 1 years ago. The therapy did not provide any significant relief. Spinal Injections: He has gotten prior spinal injections. Lumbar epidural steroid injection, helped for few months, but gave him bad side effects. Caused him to limp badly afterward. Other: None Current Outpatient Medications Medication Sig Dispense Refill celecoxib (CELEBREX) 200 mg capsule Take 1 capsule by mouth once daily. 30 capsule 0 tiZANidine (ZANAFLEX) 4 mg tablet 1 tab qhs 30 tablet 0 hydrOXYzine HCl (ATARAX) 25 mg tablet Take 1-2 tablets by mouth every 4 hours as needed for itching/rash. (Patient taking differently: Take 25-50 mg by mouth every 4 hours as needed for itching/rash. Advised to only use at night d/t drowsiness.) 30 tablet 0 No current facility-administered medications for this visit. Allergies: Patient has no known allergies. PAST MEDICAL HISTORY Diagnosis Date DDD (degenerative disc disease), lumbar Seeing Dr. 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 Marijuana use Osteoarthritis of lumbar spine PMH - PAST MEDICAL HISTORY OF 08/21/2002 normal color vision Tobacco use PAST SURGICAL HISTORY Procedure Laterality Date TONSILLECTOMY & ADENOIDECTOMY <AGE 12 06/11/00 TYMPANOSTOMY LOCAL/TOPICAL ANESTHESIA 06/11/00 Social History Tobacco Use Smoking status: Every Day Packs/day: 0.50 Years: 13.00 Pack years: 6.50 Types: Cigarettes Smokeless tobacco: Former Types: Chew Quit date: 09/18/2008 Substance Use Topics Alcohol use: Yes Comment: rarely Drug use: Yes Frequency: 3.0 times per week Types: Marijuana FAMILY HISTORY Problem Relation Age of Onset Cancer Paternal Grandmother 03/2005 other (stroke,heart) Paternal Grandmother paternal side Breast Cancer Mother Emphysema Maternal Grandmother ################################## ################################## ################################## ########################### PHYSICAL EXAM: Blood pressure 107/61, pulse (!) 59, height 180.3 cm (5' 11 ), weight 78.3 kg (172 lb 11.2 oz), SpO2 100 %. Body mass index is 24.09 kg/m . General: Patient is a(n) average historian. The patient appears approximately the recorded age and is sitting comfortably in the examining room. The patient is average height in stature and is slender in appearance. This individual has no difficulty arising from a sitting position and does not have difficulty acquiring a full, upright position when standing. Station and Gait: favoring the left lower extremity The patient is able to walk in a tandem gait. MENTAL STATUS EXAMINATION: The patient was well groomed and casually attired. The patient had good eye contact and rapport was average to establish. The patient appeared to be alert and oriented in all spheres. The patient's overall medical judgment appeared to be good.The patient's motivation for treatment was judged based on today's encounter to be good. SPINE: Lumbar Lordosis: Normal Thoracic Kyphosis: Normal RANGE OF MOTION: Flexion: abnormal, decreased motion below expected for age and weight Pain: Yes, axial pain Extension: abnormal, decreased motion below expected for age and weight Pain: Yes, severe pain Lateral Bending: Right normal, as expected for age and weight Pain: No Left normal, as expected for age and weight Pain: Yes, axial pain PALPATION TENDERNESS: Moderate tenderness at: lumbar region and posterior pelvis Hyperesthesia present: No Regional symptoms present: No Increased pain with axial loading: No Distraction: Normal Pain responses: appropriate NEUROLOGIC EXAM: MOTOR: Walk on Toes: Right: Yes Left: Yes Walk on Heels: Right: Yes Left: Yes Requires verbal cues to minimize cog-wheel or give-way resistance: No Hip Flexor R: 5/5 L: 5/5 Hip Adductor R: 5/5 L: 5/5 Hip Abductor R: 5/5 L: 5/5 Knee Extension R: 5/5 L: 5/5 Foot Dorsiflexion R: 5/5 L: 5/5 Foot Plantar Flexion R: 5/5 L: 5/5 Ext Hallicus Longus R: 5/5 L: 4/5 Toe Extensors R: 5/5 L: 5/5 SENSATION to Light Touch: Lumbar: L2-S1 symmetrically normal. REFLEXES: Lower Extremity: Patella tendon: R: 4+ L: 4+ Achilles tendon: R: 3+ L: 0 Clonus: R: 1-2 beats L: 1-2 beats Babinski Sign: Negative bilaterally. Upper Extremity: VASCULAR: Skin appearance: Right: Warm/pink Left: Warm/pink Capillary refill: Right: brisk Left: brisk ADDITIONAL MUSCULOSKELETAL EXAM: HIP/PELVIS EXAM: Tenderness over the PSIS: Right: Yes Left: Yes Greater Trochanteric pain: Right: No Left: Yes SPECIAL TESTS: Straight Leg Raise: positive on the left Contralateral Straight Leg Raise: positive on the right IMAGING STUDIES: See discussion above documented in this encounter [facility] 10-12-2021 History of Present illness Narrative Low back and left leg pain, arm pain, neck pain. PT, Mobic, Celebrex, Zanaflex, steroids Previously worked with Dr. Silvestre. BETTYE ordered but I do not see that it was ever completed Lumbar MRI with L4-5 left paracentral disc effacing the traversing nerve root with foraminal narrowing and lateral recess narrowing at L5-S1. Will offer appointment with surgical [facility] if he wants injection vs appointment with surgeon if he does not. Patient name: Kate Wharton Are you being referred by a [facility] Spine Health Provider or Pain Management Provider at [facility]? No If answer is YES please schedule directly with surgeon, triage does not need to be completed. Is this a self-referral Yes If not, who is the Referring Provider Is this a 2nd opinion, have you been offered surgery by another surgeon? No MRI/CT/myelogram within 12 months? Yes If NO , please refer to medical spine or PCP to complete above imaging, triage does not need to be completed If YES, please ask for the name/address of the facility where the MRI/CT/myelogram was completed: [facility] MRI/CT/myelogram viewable in Epic: Yes If not, please provide [phone] to fax in imaging reports for review. Also, please inform patient to hand carry imaging disc to appointment. XR (spine) within 12 months: No If YES, please ask for the name/address of the facility where the XR was completed: N/A Dr. Berger's patients: Have you had previous EMG/Nerve Conduction Study, Ultrasound, or MRI for these same symptoms? If YES, please ask for the name/address of the facility where they were completed: Requested provider (First and Last name): N/A Are you interested in a virtual visit if offered? Yes 1. Where are you having symptoms related to this visit? LBP (L) Leg pain Numbness in leg and toes (L) Back pain Yes Leg pain Yes Arm pain Yes Neck pain Yes Some neck pain 2. Are you having any of the following symptoms: Difficulty walking Yes Numbness Yes Weakness Yes Trouble using your hands? No 3. Have you had any injections or physical therapy in the last 12 months? Yes If YES then please ask for the name/address of the facility where the injections and/or physical therapy was completed PT [facility] Have you tried any other kinds of non-surgical treatments in the last 12 months? (For example: NSAIDS, muscle relaxants, analgesics, oral steroids, Chiropractor, Acupuncture): Maloxacam 4. Are you currently taking daily prescribed narcotic medications for your current symptoms (For example Oxycodone, Hydrocodone, Tramadol, Morphine, Other)? No 5. Have you had previous spinal surgery for this same symptoms? No If YES please ask for the name of facility/address of where the surgery was completed: N/A Additional Comments documented in this encounter [facility] 10-10-2021 History of Present illness Narrative Chief Complaint Patient presents with: restriction letter: for temporary FMLA HPI Kate Wharton is a 31 year old male who presents here today for Above Complaints.. Patient evaluated by our office on 10/05 for complaint of worsening chronic lower back pain with possible cauda equina symptoms. STAT MRI lumbar spine obtained which resulted as: IMPRESSION: Multilevel degenerative changes of the lumbar spine with suspected left L5 nerve root impingement due to left central disc extrusion in the left L4-5 subarticular recess. Other degenerative changes as detailed without significant interval change. Anatomic Thoracic/Lumbar Variant: None. L4-5 is considered the level of the iliac crest and assume there are 5 lumbar-type vertebrae. Started him on Celebrex and Tizanidine and referred him to new ortho spine. Has appointment with Catina Lloyd in 3 weeks. Here today for a letter about work restrictions. 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 States that he is not able to bend or twist due to pain in his back. Taking the Celebrex and Tizanidine which has lowered his pain to 6/10. Able to sit in the office today. Denies new injury, loss of bowel/bladder control, saddle anesthesia, LE weakness. Past medical history, appointments, medications, allergies reviewed. Previous Medical History PAST MEDICAL HISTORY Diagnosis Date DDD (degenerative disc disease), lumbar Seeing Dr. 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 Marijuana use Osteoarthritis of lumbar spine PMH - PAST MEDICAL HISTORY OF 08/21/2002 normal color vision Tobacco use Previous Surgical History PAST SURGICAL HISTORY Procedure Laterality Date TONSILLECTOMY & ADENOIDECTOMY <AGE 12 06/11/00 TYMPANOSTOMY LOCAL/TOPICAL ANESTHESIA 06/11/00 Family History FAMILY HISTORY Problem Relation Age of Onset Cancer Paternal Grandmother 03/2005 other (stroke,heart) Paternal Grandmother paternal side Breast Cancer Mother Emphysema Maternal Grandmother Patient Allergies ALLERGIES No Known Allergies Current Medications Current Outpatient Medications on File Prior to Visit Medication Sig celecoxib (CELEBREX) 200 mg capsule Take 1 capsule by mouth once daily. tiZANidine (ZANAFLEX) 4 mg tablet 1 tab qhs hydrOXYzine HCl (ATARAX) 25 mg tablet Take 1-2 tablets by mouth every 4 hours as needed for itching/rash. (Patient taking differently: Take 25-50 mg by mouth every 4 hours as needed for itching/rash. Advised to only use at night d/t drowsiness. ) No current facility-administered medications on file prior to visit. Social History Social History Tobacco Use Smoking status: Current Every Day Smoker Packs/day: 0.50 Years: 13.00 Pack years: 6.50 Types: Cigarettes Smokeless tobacco: Former User Types: Chew Quit date: 09/18/2008 Substance Use Topics Alcohol use: Yes Comment: rarely Drug use: Yes Frequency: 3.0 times per week Types: Marijuana Review of Symptoms REVIEW OF SYSTEMS See HPI EXAM: BP 122/68 Pulse 76 Resp 16 SpO2 98% General Appearance: Well appearing, alert, in no acute distress, well-hydrated, well nourished.. Back:TTP over lumbar paraspinal muscles bilaterally. Able to sit comfortably during exam today. Health Maintenance List COVID-19 VACCINE(1) Never done PNEUMOCOCCAL(2 - PCV) due on 09/18/2017 INFLUENZA(1) due on 11/09/2021 DEPRESSION SCREENING due on 12/02/2021 DTAP,TDAP,TD(8 - Td or Tdap) due on 09/18/2026 HEPATITIS C SCREENING Completed HIV SCREENING Completed ASSESSMENT/PLAN: 1. Chronic left-sided low back pain with left-sided sciatica - ICD9: 724.2, 724.3, 338.29, ICD10: M54.42, G89.29 MRI negative for spinal stenosis. DDD of lumbar spine with herniated disc noted. Pain improving on current regimen. Given letter for patient to work light duty with 10 lbs weight lifting restriction until he is cleared by specialist. Keep appointment on 11/01. I have his FMLA forms which have not yet been completed. Discussed will be done within 5-7 business days of his last OV. Nancy Daly MD documented in this encounter [facility] 10-05-2021 History of Present illness Narrative Radiology Service Progress Note PATIENT NAME: Kate Wharton DATE OF SERVICE: October 05, 2021 TIME: 2:06 PM PATIENT IDENTITY VERIFICATION COMPLETED USING TWO (2) IDENTIFIERS: Name and Date of confirmed by patient verbally and Name and Date of confirmed by identification band FALL SCREENING: Has the patient had 2 falls in the last year or 1 fall with injury or currently using an Ambulatory Assistive Device (Walker, Cane, Wheelchair, Crutches, etc.)? No PATIENT GENDER DATA: Male PATIENT RELEVANT IMPLANT DATA REVIEWED: Yes RADIOLOGY DEPARTMENT: MR; Exam(s) Completed: Spine: Lumbar spine PERIPHERAL IV DATA: Not applicable SIGNED BY: RT Frances(Marquis) October 05, 2021 2:06 PM documented in this encounter [facility] 10-05-2021 History of Present illness Narrative Chief Complaint Patient presents with: FMLA Paperwork HPI Kate Wharton is a 31 year old male who presents here today for Above Complaints.. Patient was evaluated last November by Dr. Silvestre for complaint of chronic lower back pain related to skateboarding accident at age 16. Had been on disability until 11/2019 when he returned to work. Requested FMLA at that time for following HPI: Kate Wharton is seen for 1.5 month follow up. He is feeling worse. accumulated 3 points . the low back pain is constant, tight, varying intensity, worse with movement, prolong sitting, better with . intermittent leg pain to groin, rare leg numbness 2x/week- < 1 hour The distribution of symptoms is unchanged. Pain is currently 6 out of 10. Referred to PT and started on Mobic for two weeks and zanaflex for muscle spasms and FMLA was completed by their office. Pain did not improve and MRI obtained as noted below. Recommended [facility] which patient did not follow up with in April. No contact with spine health until yesterday when he was requesting repeat FMLA. They recommended he schedule visit with their office or contact us to repeat his FMLA. Today, patient states that he was unable to schedule an appointment with Dr. Silvestre because he no longer takes his insurance. Is trying to schedule OV with new electronic health records specialist. Complaining of recurrent left lower back pain which started about 5 days ago after sitting on bleachers for a prolonged period of time. Described as constant sharp/aching pain, currently 8/10, with radiation down his left left to his toes. Exacerbated with sitting and standing for long periods of time, bending. Treating with 400 mg Advil this morning, but has not help with pain. Tried his meloxicam without improvement. Has been resting at home and applying heat. Admits to mild numbness in left groin, weakness in his legs. Denies loss of bowel/bladder control. Patient states that he feels like something has changed in his back. Patient reports last flare up of back pain was about 2 months ago and lasted about 2 days. Past medical history, appointments, medications, allergies reviewed. Previous Medical History PAST MEDICAL HISTORY Diagnosis Date DDD (degenerative disc disease), lumbar Seeing Dr. 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 Marijuana use Osteoarthritis of lumbar spine PMH - PAST MEDICAL HISTORY OF 08/21/2002 normal color vision Tobacco use Previous Surgical History PAST SURGICAL HISTORY Procedure Laterality Date TONSILLECTOMY & ADENOIDECTOMY <AGE 12 06/11/00 TYMPANOSTOMY LOCAL/TOPICAL ANESTHESIA 06/11/00 Family History FAMILY HISTORY Problem Relation Age of Onset Cancer Paternal Grandmother 03/2005 other (stroke,heart) Paternal Grandmother paternal side Breast Cancer Mother Emphysema Maternal Grandmother Patient Allergies ALLERGIES No Known Allergies Current Medications Current Outpatient Medications on File Prior to Visit Medication Sig ibuprofen (ADVIL) 200 mg tablet Take 400 mg by mouth every 6 hours as needed. hydrOXYzine HCl (ATARAX) 25 mg tablet Take 1-2 tablets by mouth every 4 hours as needed for itching/rash. (Patient taking differently: Take 25-50 mg by mouth every 4 hours as needed for itching/rash. Advised to only use at night d/t drowsiness. ) meloxicam (MOBIC) 15 mg tablet Take 1 tablet by mouth once daily. methylPREDNISolone (MEDROL, ELENA,) 4 mg Dose-Pack As Instructed per package (Patient not taking: Reported on 02/18/2021 ) tiZANidine (ZANAFLEX) 4 mg tablet 1 tab qhs (Patient not taking: Reported on 02/18/2021 ) nabumetone (RELAFEN) 750 mg tablet 1 tab bid prn x 5-7 days with food then prn (Patient not taking: Reported on 04/22/2019 ) tiZANidine HCl (ZANAFLEX) 4 mg capsule 1 tab bid prn for spasms.watch out for drowsiness (Patient not taking: Reported on 04/22/2019 ) No current facility-administered medications on file prior to visit. Social History Social History Tobacco Use Smoking status: Current Every Day Smoker Packs/day: 0.50 Years: 13.00 Pack years: 6.50 Types: Cigarettes Smokeless tobacco: Former User Types: Chew Quit date: 09/18/2008 Substance Use Topics Alcohol use: Yes Comment: rarely Drug use: Yes Frequency: 3.0 times per week Types: Marijuana Review of Symptoms REVIEW OF SYSTEMS See HPI EXAM: BP 106/64 Pulse 85 Resp 18 Wt 77.6 kg (171 lb) SpO2 97% BMI 23.85 kg/m General Appearance: Appears to be in pain, unable to sit during entire visit. Skin: Skin color, texture, turgor normal, no suspicious rashes or lesions. Back:Positive for TTP over left lumbar paraspinal muscles, Limited flexion of DL spine to 30 degrees, positive SLR bilaterally, 4/5 strength in left LE compared to right. no pain to palpation of vertebrae, reflexes are 2+ and symmetric, no evidence of scoliosis. Normal sensation to light touch on exam. Health Maintenance List COVID-19 VACCINE(1) Never done PNEUMOCOCCAL(2 - PCV) due on 09/18/2017 INFLUENZA(1) due on 11/09/2021 DEPRESSION SCREENING due on 12/02/2021 DTAP,TDAP,TD(8 - Td or Tdap) due on 09/18/2026 HEPATITIS C SCREENING Completed HIV SCREENING Completed Data reviewed MRI Lumbar spine 03/28/2021 IMPRESSION: Degenerative changes most severe at L3-L4 through L5-S1 as itemized above. Findings appear comparable to the prior exam. Anatomic Variant: None. L4-5 is considered the level of the iliac crest and assume there are 5 lumbar-type vertebrae. ASSESSMENT/PLAN: 1. Chronic left-sided low back pain with left-sided sciatica - ICD9: 724.2, 724.3, 338.29, ICD10: M54.42, G89.29 (primary diagnosis) Concern for spinal stenosis/cauda equina with complaint of new numbness in left groin and weakness on exam. Will obtain MRI of lumbar spine stat and call with results. Discussed rest, ice, NSAIDs, and muscle relaxers for pain as prescribed. Red flags for re-assessment reviewed with patient in detail. Will give off work until 10/07 while we are waiting on his results. F/u with ortho spine for injections vs surgery depending on results. Advised it may be 5-7 business days before we can complete his FMLA. - CONSULT TO [facility] - MRI LUMBAR SPINE WO IVCON 2. Spinal stenosis of lumbar region without neurogenic claudication - ICD9: 724.02, ICD10: M48.061 - CONSULT TO [facility] - MRI LUMBAR SPINE WO IVCON 3. Spinal stenosis of lumbar region with neurogenic claudication - ICD9: 724.03, ICD10: M48.062 - MRI LUMBAR SPINE WO IVCON I spent a total of 45 minutes on the date of the service which included preparing to see the patient, [id number] patient care, completing clinical documentation, obtaining and/or reviewing separately obtained history, performing a medically appropriate examination, counseling and educating the patient/family/caregiver and ordering medications, tests, or procedures. Nancy Daly MD documented in this encounter [facility] 10-04-2021 Miscellaneous Notes Contacted patient and scheduled for appointment. Patient is also going to bring paperwork. Beatris Hall MA I would need to see him in office to discuss his symptoms and need for FMLA if he cannot get in with neuro for injection and paperwork. See below upon review of the chart Dr. Mcdonald completed FMLA paperwork. Probably duration 6-12 months treatment date 11/2020 - PT and flare ups. Upon review of the chart. Please see note that was also sent to Dr. Silvestre. Dr. Silvestre put request patient be seen. Beatris Hall MA Patient returned call and given provider's message below. Patient reports he did not have surgery. He is looking into spinal surgery due to DDD flare up. The FMLA he is requesting is a renewal. Reports it's that time of year to renew his FMLA. Reports he is on the verge of losing his job if he does not get it handed in. Please advise patient. Attempted to contact patient; no answer; no voicemail set up. Try again. Beatris Hall MA If he is requesting FMLA for a recent surgery, his surgeon should really be the ones to complete this form. They should still be able to complete this if they no longer take his insurance since they treated him when they did accept his insurance. Pt calling to see if Dr Daly will complete his intermittent FMLA forms. States the surgeon that he was seeing for this no longer accepts his insurance and they advised him to have his pcp complete these forms. Please call pt back at [phone]. Bry Xie LPN documented in this encounter [facility] 10-04-2021 Miscellaneous Notes Spoke with patient. Informed needs appt to be seen since last was 12/02/20. Voiced understanding. Injection was ordered in March 2021, but per patient not felt he needed so did not schedule, but needs injection now as having a flare up. Instruct if symptoms/pain severe may need to go to ED/Urgent care. Instruct cannot complete any FMLA until seen. May need to contact Primary care if current may be able to complete. Benita aLcy, RN Patient is calling has FMLA paperwork that needs to be filled out. Patient calling about getting injection. Call back # [phone]. documented in this encounter [facility] 09-18-2021 Miscellaneous Notes Pt phone and emergency contact phone both ring busy. Amina Florence MA phone rings busy so does emergency contact. Yany Melendez phone rings busy will try again. Yany Melendez Urine culture showed no growth. Negative for gonorrhea and chlamydia. Continue treatment plan discussed at time of discharge. Follow up with PCP. documented in this encounter [facility] 09-13-2021 History of Present illness Narrative Images from the original note were not included. Subjective HPI HPI Kate Wharton is a 31 year old male who presents today for CC of groin rash, extending down below waist. Clarifies that he has a few sores on his shaft of his penis, and tucked up under his testicles. Stating that he doesn't feel it's STI related, as his last unprotected partner was >1 year ago. His +Pruritus. Notes that he has had some flank pain for about the past 2 weeks, but states he was hospitalized around that time for dehydration so he assumed it was related to that. BP 128/78 Pulse 88 Temp 36.6 C (97.8 F) Resp 16 Wt 76.2 kg (168 lb) SpO2 97% BMI 23.43 kg/m ALLERGIES No Known Allergies ACTIVE PROBLEM LIST Backache, Unspecified Lumbar Spondylosis Ddd (Degenerative Disc Disease), Lumbar Lumbar Disc Displacement Without Myelopathy Marijuana Use Tobacco Use Chronic Low Back Pain With Bilateral Sciatica Family History Problem Relation Age of Onset Cancer Paternal Grandmother 03/2005 other (stroke,heart) Paternal Grandmother paternal side Breast Cancer Mother Emphysema Maternal Grandmother Social History Tobacco Use Smoking status: Current Every Day Smoker Packs/day: 0.50 Years: 13.00 Pack years: 6.50 Types: Cigarettes Smokeless tobacco: Former User Types: Chew Quit date: 09/18/2008 Substance Use Topics Alcohol use: Yes Comment: rarely Drug use: Yes Frequency: 3.0 times per week Types: Marijuana Review of Systems Constitutional: Negative for chills, fever and malaise/fatigue. HENT: Negative for congestion and sore throat. Respiratory: Negative for cough and wheezing. Skin: Positive for itching and rash. Objective BP 128/78 Pulse 88 Temp 36.6 C (97.8 F) Resp 16 Wt 76.2 kg (168 lb) SpO2 97% BMI 23.43 kg/m Physical Exam Constitutional: Appearance: Normal appearance. He is not toxic-appearing. Cardiovascular: Rate and Rhythm: Normal rate and regular rhythm. Heart sounds: S1 normal and S2 normal. No murmur heard. Pulmonary: Effort: Pulmonary effort is normal. Breath sounds: Normal breath sounds. No wheezing, rhonchi or rales. Abdominal: General: Bowel sounds are normal. Palpations: Abdomen is soft. Abdomen is not rigid. Tenderness: There is no abdominal tenderness. There is no guarding. Genitourinary: Pubic Area: Rash present. Comments: Scaterred macuopapular lesions on erythematous base in region as outlined. ~3-4 erythematous papules (measuring ~4-5 mm each) noted on shaft and head of penis Lymphadenopathy: Lower Body: No right inguinal adenopathy. No left inguinal adenopathy. Skin: General: Skin is warm and dry. ASSESSMENT/PLAN: 1. Rash of genital area - ICD9: 782.1, ICD10: R21 (primary diagnosis) Clinical history and distribution seems to be c/w fungal rash. Will start on topical antifungals. Explained to patient that fungal rashes are slow to resolve, so may have to use upwards of 4-6 weeks. If no better, pursue derm referral (placed today) - CLOTRIMAZOLE 1 % TOPICAL CREAM - CONSULT TO DERMATOLOGY - HYDROXYZINE HCL 25 MG TABLET 2. Lesion of penis - ICD9: 607.89, ICD10: N48.9 Uncertain etiology. Painless papules-- Possible atopic dermatitis versus fungal given appearance/distribution of surrounding rash. Does not appear to be c/w herpetic lesions. Derm referral placed. - CONSULT TO DERMATOLOGY - HYDROXYZINE HCL 25 MG TABLET 3. Flank pain - ICD9: 789.09, ICD10: R10.9 - UA relatively unremarkable-- see above/below regarding GC/chlamydia testing and culture - UA DIP, URINE (POC) - GC/CHLAMYDIA AMPLIF, URINE 4. Dysuria - ICD9: 788.1, ICD10: R30.0 - See above; Send urine for culture - GC/CHLAMYDIA AMPLIF, URINE - URINE CULTURE Pt advised to see PCP, or derm (see consult), if symptoms persist or progress. Reviewed red flags with patient and when to seek care sooner. The patient indicates understanding of these issues and agrees with the plan. Beti Bustamante PA-C documented in this encounter [facility] Diagnosis Chronic left-sided low back pain with left-sided sciatica- Primary Spinal stenosis of lumbar region without neurogenic claudication Spinal stenosis, lumbar region, without neurogenic claudication Spinal stenosis of lumbar region with neurogenic claudication Spinal stenosis, lumbar region, with neurogenic claudication [facility] Diagnosis Chronic left-sided low back pain with left-sided sciatica- Primary [facility] Diagnosis Lumbar facet arthropathy- Primary Lumbosacral spondylosis without myelopathy Spinal stenosis of lumbar region without neurogenic claudication Spinal stenosis, lumbar region, without neurogenic claudication Chronic left-sided low back pain with left-sided sciatica [facility] Diagnosis Spinal stenosis of lumbar region without neurogenic claudication- Primary Spinal stenosis, lumbar region, without neurogenic claudication Radiculopathy, lumbar region Thoracic or lumbosacral neuritis or radiculitis, unspecified DDD (degenerative disc disease), lumbar Degeneration of lumbar or lumbosacral intervertebral disc Lumbar facet arthropathy Lumbosacral spondylosis without myelopathy [facility] Diagnosis Spinal stenosis of lumbar region without neurogenic claudication- Primary Spinal stenosis, lumbar region, without neurogenic claudication Chronic left-sided low back pain with left-sided sciatica Lumbar spondylosis Lumbosacral spondylosis without myelopathy DDD (degenerative disc disease), lumbar Degeneration of lumbar or lumbosacral intervertebral disc Lumbar facet arthropathy Lumbosacral spondylosis without myelopathy [facility] Diagnosis Spinal stenosis, lumbar region, without neurogenic claudication- Primary DDD (degenerative disc disease), lumbar Degeneration of lumbar or lumbosacral intervertebral disc Lumbar facet arthropathy Lumbosacral spondylosis without myelopathy DDD (degenerative disc disease), lumbar Degeneration of lumbar or lumbosacral intervertebral disc Lumbar facet arthropathy Lumbosacral spondylosis without myelopathy [facility] Diagnosis Spinal stenosis of lumbar region without neurogenic claudication Spinal stenosis, lumbar region, without neurogenic claudication Chronic left-sided low back pain with left-sided sciatica Lumbar spondylosis Lumbosacral spondylosis without myelopathy [facility]* Diagnosis Sore throat- Primary Acute pharyngitis Depression, unspecified depression type Lumbar radiculopathy Thoracic or lumbosacral neuritis or radiculitis, unspecified Spinal stenosis, lumbar region, without neurogenic claudication [facility]* Diagnosis Spinal stenosis of lumbar region without neurogenic claudication- Primary Spinal stenosis, lumbar region, without neurogenic claudication Degeneration of lumbar or lumbosacral intervertebral disc documented in this encounter [facility] note* Diagnosis Radiculopathy, lumbar region- Primary Thoracic or lumbosacral neuritis or radiculitis, unspecified documented in this encounter [facility] note* Diagnosis Radiculopathy, lumbar region- Primary Thoracic or lumbosacral neuritis or radiculitis, unspecified documented in this encounter [facility] note* Diagnosis Lumbar radiculopathy- Primary Thoracic or lumbosacral neuritis or radiculitis, unspecified Lumbar radiculopathy Thoracic or lumbosacral neuritis or radiculitis, unspecified documented in this encounter [facility] note* Diagnosis Lumbar radiculopathy Thoracic or lumbosacral neuritis or radiculitis, unspecified Preop examination Preoperative examination, unspecified Tobacco use Tobacco use disorder Marijuana use Cannabis abuse, unspecified Lumbar radiculopathy Thoracic or lumbosacral neuritis or radiculitis, unspecified documented in this encounter [facility] note* Diagnosis Radiculopathy, lumbar region Thoracic or lumbosacral neuritis or radiculitis, unspecified Lumbar radiculopathy Thoracic or lumbosacral neuritis or radiculitis, unspecified documented in this encounter [facility] note* Diagnosis 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 Lumbar radiculopathy Thoracic or lumbosacral neuritis or radiculitis, unspecified [facility]* Diagnosis Radiculopathy, lumbar region- Primary Thoracic or lumbosacral neuritis or radiculitis, unspecified documented in this encounter [facility] note* Diagnosis Spinal stenosis of lumbar region with neurogenic claudication Spinal stenosis, lumbar region, with neurogenic claudication documented in this encounter [facility] note* Diagnosis Spinal stenosis of lumbar region without neurogenic claudication Spinal stenosis, lumbar region, without neurogenic claudication documented in this encounter [facility] note* Diagnosis Radiculopathy, lumbar region- Primary Thoracic or lumbosacral neuritis or radiculitis, unspecified documented in this encounter [facility] Reason for Referral Specialty Diagnoses / Procedures Referred By Contac t Referred To Contact Dermatology Diagnoses Rash of genital area Lesion of penis Procedures CONSULT TO DERMATOLOGY Beti Bustamante PA-C [address] [place] [address] Referral ID Status Reason Start Date Expiration Date Visits Requested Visits Authorized [id number] Ref Not Required PCP Requested Referral 09/13/2021 09/13/2022 1 1 Specialty Diagnoses / Procedures Referred By Contac t Referred To Contact MR IMAGING Diagnoses Spinal stenosis of lumbar region with neurogenic claudication Procedures MRI LUMBAR SPINE WO IVC MRI SPINAL CANAL LUMBAR W/O CONTRAST MATERIAL Nancy Daly MD [address] [place] [address] Mr Imaging Referral ID Status Reason Start Date Expiration Date Visits Requested Visits Authorized [id number] Waiting for Response Auto-Generated Referral Patient Cleared Patient agrees to sign AFR (INN Commercial or OON MA) 10/05/2021 11/04/2022 1 1 Specialty Diagnoses / Procedures Referred By Contact Referred To Contact [facility] [place] / SPINE Diagnoses Spinal stenosis of lumbar region without neurogenic claudication Chronic left-sided low back pain with left-sided sciatica Procedures CONSULT TO [facility] OFFICE/OUTPATIENT [facility] 60-74 MINUTES Nancy Daly MD [address] [place] [address] Sp[facility] [place] [id number] [address] Referral ID Status Reason Start Date Expiration Date Visits Requested Visits Authorized [id number] Authorized PCP Requested Referral 11/01/2021 03/10/2022 1 1 Specialty Diagnoses / Procedures Referred By Contac t Referred To Contact Diagnoses Spinal stenosis of lumbar region without neurogenic claudication Chronic left-sided low back pain with left-sided sciatica Lumbar facet arthropathy Procedures CONSULT TO [facility] OFFICE/OUTPATIENT [facility] 60-74 MINUTES Catina Lloyd PA-C [address] [place] [address] Referral ID Status Reason Start Date Expiration Date Visits Requested Visits Authorized [id number] Pending Review PCP Requested Referral 11/01/2021 11/01/2022 1 1 Specialty Diagnoses / Procedures Referred By Contac t Referred To Contact Diagnoses Spinal stenosis of lumbar region without neurogenic claudication Chronic left-sided low back pain with left-sided sciatica Lumbar facet arthropathy Procedures CONSULT TO SPINE INTERVENTION Catina Lloyd PA-C [address] [place] [address] Referral ID Status Reason Start Date Expiration Date Visits Requested Visits Authorized [id number] Pending Review PCP Requested Referral 11/01/2021 01/30/2022 3 3 Specialty Diagnoses / Procedures Referred By Contac t Referred To Contact XR IMAGING Diagnoses Spinal stenosis of lumbar region without neurogenic claudication Chronic left-sided low back pain with left-sided sciatica Procedures XR LUMBAR MOTION 4V AP/LAT/ FLEX/EXT RADEX SPINE LUMBOSACRAL MINIMUM 4 VIEWS Catina Lloyd PA-C [address] [place] [address] Xr Imaging Referral ID Status Reason Start Date Expiration Date Visits Requested Visits Authorized [id number] Pending Review Auto-Generat ed Referral 11/01/2021 12/01/2022 1 1 Specialty Diagnoses / Procedures Referred By Contac t Referred To Contact Neurosurgery Diagnoses Spinal stenosis of lumbar region without neurogenic claudication Degeneration of lumbar or lumbosacral intervertebral disc Procedures CONSULT TO NEUROSURGERY OFFICE/OUTPATIENT [facility] 60-74 MINUTES Catina Lloyd PA-C [address] [place] [address] Referral ID Status Reason Start Date Expiration Date Visits Requested Visits Authorized [id number] Pending Review PCP Requested Referral 09/26/2022 12/25/2022 1 1 Specialty Diagnoses / Procedures Referred By Contac t Referred To Contact MR IMAGING Diagnoses Spinal stenosis of lumbar region with neurogenic claudication Procedures MRI LUMBAR SPINE WO IVCON MRI SPINAL CANAL LUMBAR W/O CONTRAST MATERIAL Nancy Daly MD [address] [place] [address] [place] [address] Referral ID Status Reason Start Date Expiration Date Visits Requested Visits Authorized [id number] Denied Auto-Generated Referral Patient Cleared Patient agrees to sign AFR (INN Commercial or OON MA) 10/05/2021 11/04/2022 1 0 Specialty Diagnoses / Procedures Referred By Contac t Referred To Contact [facility] Diagnoses Spinal stenosis of lumbar region without neurogenic claudication Procedures MRI LUMBAR SPINE WO IVCON MRI SPINAL CANAL LUMBAR W/O CONTRAST MATERIAL Tobias Stubbs, DO [address] [place] [address] [place] [address] Referral ID Status Reason Start Date Expiration Date Visits Requested Visits Authorized [id number] Authorized Financial Clearance Required - Self Pay Patient Cleared - Qualified HCAP/501/FA 10/24/2022 01/22/2023 99 99 Summary Purpose Family History No Family History Records FoundNo Family History Records FoundNo Family History Records Found Advance Directives No Advanced Directives Records FoundNo Advanced Directives Records FoundNo Advanced Directives Records Found Additional Source Comments Source Comments (unrecognize d section and content) In the event this informatio n is protected by the Federal Confidentiality of Alcohol and Drug Abuse Patient Records regulations: The Federal rules restrict any use of the information to criminally investigate or prosecute any alcohol or drug abuse patient.[facility] the event this information is protected by the Federal Confidentiality of Alcohol and Drug Abuse Patient Records regulations: The Federal rules restrict any use of the information to criminally investigate or prosecute any alcohol or drug abuse patient.[facility] the event this information is protected by the Federal Confidentiality of Alcohol and Drug Abuse Patient Records regulations: The Federal rules restrict any use of the information to criminally investigate or prosecute any alcohol or drug abuse patient.[facility] the event this information is protected by the Federal Confidentiality of Alcohol and Drug Abuse Patient Records regulations: The Federal rules restrict any use of the information to criminally investigate or prosecute any alcohol or drug abuse patient.[facility] the event this information is protected by the Federal Confidentiality of Alcohol and Drug Abuse Patient Records regulations: The Federal rules restrict any use of the information to criminally investigate or prosecute any alcohol or drug abuse patient.[facility] the event this information is protected by the Federal Confidentiality of Alcohol and Drug Abuse Patient Records regulations: The Federal rules restrict any use of the information to criminally investigate or prosecute any alcohol or drug abuse patient.[facility] the event this information is protected by the Federal Confidentiality of Alcohol and Drug Abuse Patient Records regulations: The Federal rules restrict any use of the information to criminally investigate or prosecute any alcohol or drug abuse patient.[facility] the event this information is protected by the Federal Confidentiality of Alcohol and Drug Abuse Patient Records regulations: The Federal rules restrict any use of the information to criminally investigate or prosecute any alcohol or drug abuse patient.[facility] the event this information is protected by the Federal Confidentiality of Alcohol and Drug Abuse Patient Records regulations: The Federal rules restrict any use of the information to criminally investigate or prosecute any alcohol or drug abuse patient.[facility] the event this information is protected by the Federal Confidentiality of Alcohol and Drug Abuse Patient Records regulations: The Federal rules restrict any use of the information to criminally investigate or prosecute any alcohol or drug abuse patient.[facility] CenterIn the event this information is protected by the Federal Confidentiality of Alcohol and Drug Abuse Patient Records regulations: The Federal rules restrict any use of the information to criminally investigate or prosecute any alcohol or drug abuse patient.[facility] CenterIn the event this information is protected by the Federal Confidentiality of Alcohol and Drug Abuse Patient Records regulations: The Federal rules restrict any use of the information to criminally investigate or prosecute any alcohol or drug abuse patient.[facility] the event this information is protected by the Federal Confidentiality of Alcohol and Drug Abuse Patient Records regulations: The Federal rules restrict any use of the information to criminally investigate or prosecute any alcohol or drug abuse patient.[facility]In the event this information is protected by the Federal Confidentiality of Alcohol and Drug Abuse Patient Records regulations: The Federal rules restrict any use of the information to criminally investigate or prosecute any alcohol or drug abuse patient.[facility] CenterIn the event this information is protected by the Federal Confidentiality of Alcohol and Drug Abuse Patient Records regulations: The Federal rules restrict any use of the information to criminally investigate or prosecute any alcohol or drug abuse patient.[facility] CenterIn the event this information is protected by the Federal Confidentiality of Alcohol and Drug Abuse Patient Records regulations: The Federal rules restrict any use of the information to criminally investigate or prosecute any alcohol or drug abuse patient.[facility] CenterIn the event this information is protected by the Federal Confidentiality of Alcohol and Drug Abuse Patient Records regulations: The Federal rules restrict any use of the information to criminally investigate or prosecute any alcohol or drug abuse patient.[facility] the event this information is protected by the Federal Confidentiality of Alcohol and Drug Abuse Patient Records regulations: The Federal rules restrict any use of the information to criminally investigate or prosecute any alcohol or drug abuse patient.[facility] CenterIn the event this information is protected by the Federal Confidentiality of Alcohol and Drug Abuse Patient Records regulations: The Federal rules restrict any use of the information to criminally investigate or prosecute any alcohol or drug abuse patient.[facility] CenterIn the event this information is protected by the Federal Confidentiality of Alcohol and Drug Abuse Patient Records regulations: The Federal rules restrict any use of the information to criminally investigate or prosecute any alcohol or drug abuse patient.[facility] CenterIn the event this information is protected by the Federal Confidentiality of Alcohol and Drug Abuse Patient Records regulations: The Federal rules restrict any use of the information to criminally investigate or prosecute any alcohol or drug abuse patient.[facility] CenterIn the event this information is protected by the Federal Confidentiality of Alcohol and Drug Abuse Patient Records regulations: The Federal rules restrict any use of the information to criminally investigate or prosecute any alcohol or drug abuse patient.[facility] CenterIn the event this information is protected by the Federal Confidentiality of Alcohol and Drug Abuse Patient Records regulations: The Federal rules restrict any use of the information to criminally investigate or prosecute any alcohol or drug abuse patient.[facility] CenterIn the event this information is protected by the Federal Confidentiality of Alcohol and Drug Abuse Patient Records regulations: The Federal rules restrict any use of the information to criminally investigate or prosecute any alcohol or drug abuse patient.[facility] CenterIn the event this information is protected by the Federal Confidentiality of Alcohol and Drug Abuse Patient Records regulations: The Federal rules restrict any use of the information to criminally investigate or prosecute any alcohol or drug abuse patient.[facility] CenterIn the event this information is protected by the Federal Confidentiality of Alcohol and Drug Abuse Patient Records regulations: The Federal rules restrict any use of the information to criminally investigate or prosecute any alcohol or drug abuse patient.[facility]In the event this information is protected by the Federal Confidentiality of Alcohol and Drug Abuse Patient Records regulations: The Federal rules restrict any use of the information to criminally investigate or prosecute any alcohol or drug abuse patient.[facility] CenterIn the event this information is protected by the Federal Confidentiality of Alcohol and Drug Abuse Patient Records regulations: The Federal rules restrict any use of the information to criminally investigate or prosecute any alcohol or drug abuse patient.[facility] CenterIn the event this information is protected by the Federal Confidentiality of Alcohol and Drug Abuse Patient Records regulations: The Federal rules restrict any use of the information to criminally investigate or prosecute any alcohol or drug abuse patient.[facility] CenterIn the event this information is protected by the Federal Confidentiality of Alcohol and Drug Abuse Patient Records regulations: The Federal rules restrict any use of the information to criminally investigate or prosecute any alcohol or drug abuse patient.[facility] CenterIn the event this information is protected by the Federal Confidentiality of Alcohol and Drug Abuse Patient Records regulations: The Federal rules restrict any use of the information to criminally investigate or prosecute any alcohol or drug abuse patient.[facility] CenterIn the event this information is protected by the Federal Confidentiality of Alcohol and Drug Abuse Patient Records regulations: The Federal rules restrict any use of the information to criminally investigate or prosecute any alcohol or drug abuse patient.[facility] Reason for Visit (unrecogniz ed section and content) Reason Comments Results Reason Comments FMLA Paperwork Schedule Injection Reason Comments FMLA Paperwork Reason Comments FMLA Paperwork Reason Comments restriction letter for temporary FMLA Reason Comments New Patient Low Back Pain Leg Pain Specialty Diagnoses / Procedures Referred By Contact Referred To Contact [facility] [place] / SPINE Diagnoses Spinal stenosis of lumbar region without neurogenic claudication Chronic left-sided low back pain with left-sided sciatica Procedures CONSULT TO [facility] OFFICE/OUTPATIENT [facility] 60-74 MINUTES Nancy Daly MD [address] [place] [address] [place] [address] [address] Referral ID Status Reason Start Date Expiration Date V isits Requested Visits Authorized [id number] Closed PCP Requested Referral 11/01/2021 03/10/2022 1 1 Reason Comments Patient Update Reason Comments Follow Up Low Back Pain Leg Pain left Specialty Diagnoses / Procedures Referred By Contac t Referred To Contact [facility] [place] / SPINE Diagnoses Spinal stenosis of lumbar region without neurogenic claudication Spinal stenosis of lumbar region with neurogenic claudication Procedures CONSULT TO [facility] OFFICE/OUTPATIENT [facility] 60-74 MINUTES Nancy Daly MD [address] [place] [address] [place] [address] [address] Reason Comments FMLA Paperwork And restrictions-pat ient reports that due to missing more work than he is supposed to they are requesting re-evaluation. Reason Comments Consult Reason Onset Date Comments Refill Request 04/20/2022 Reason Comments ED Follow-up Saw in [facility] ER 3, ER doc said acute bronchitis, employer is stating you need FMLA because he will be off for 4 days Reason Comments Established Patient Specialty Diagnoses / Procedures Referred By Contac t Referred To Contact [facility] Diagnoses Spinal stenosis of lumbar region without neurogenic claudication Procedures MRI LUMBAR SPINE WO IVCON MRI SPINAL CANAL LUMBAR W/O CONTRAST MATERIAL Tobias Stubbs P, DO [address] [place] [address] [facility] [address] Referral ID Status Reason Start Date Expiration Date Visits Requested Visits Authorized [id number] Authorized Financial Clearance Required - Self Pay Patient Cleared - Qualified HCAP/501/FA 10/24/2022 01/22/2023 99 99 Specialty Diagnoses / Procedures Referred By Contac t Referred To Contact [facility] Diagnoses Spinal stenosis of lumbar region without neurogenic claudication Procedures MRI LUMBAR SPINE WO IVCON MRI SPINAL CANAL LUMBAR W/O CONTRAST MATERIAL Tobias Stubbs, DO [address] [place] [address] [facility] [address] Reason Comments Patient Question Reason Comments Appointment Specialty Diagnoses / Procedures Referred By Contac t Referred To Contact MR IMAGING Diagnoses Spinal stenosis of lumbar region with neurogenic claudication Procedures MRI LUMBAR SPINE WO IVCON MRI SPINAL CANAL LUMBAR W/O CONTRAST MATERIAL Nancy Daly MD [address] [place] [address] [place] [address] Referral ID Status Reason Start Date Expiration Date Visits Requested Visits Authorized [id number] Denied Auto-Generated Referral Patient Cleared Patient agrees to sign AFR (INN Commercial or OON MA) 10/05/2021 11/04/2022 1 0 Care Teams (unrecognized sec tion and content) Ribbon Blocker Relationship Specialty Start Date End Date Nancy Daly MD [address] [place], [place] [address] PCP - General Family Practice 09/18/16 Ribbon Blocker Relationship Specialty Start Date End Date Nancy Daly MD [address] [place], [place] [id number] PCP - General Family Practice 09/18/16 Ribbon Blocker Relationship Specialty Start Date End Date Nancy Daly MD [address] [place], [place] [id number] [phone] PCP - General Family Practice 09/18/16 Ribbon Blocker Relationship Specialty Start Date End Date Nancy Daly MD [address] [facility] [place] [address] PCP - General Family Practice 09/18/16 Ribbon Blocker Relationship Specialty Start Date End Date Nancy Daly MD [address] [facility] [place] [address] PCP - General Family Practice 09/18/16 Ribbon Blocker Relationship Specialty Start Date End Date Nancy Daly MD [address] [facility] [place] [address] PCP - General Family Practice 09/18/16 Ribbon Blocker Relationship Specialty Start Date End Date Nancy Daly MD [address] [facility] [place] [address] PCP - General Family Medicine 09/18/16 Ribbon Blocker Relationship Specialty Start Date End Date Nancy Daly MD [address] [facility] [place] [address] PCP - General Family Medicine 09/18/16 Ribbon Blocker Relationship Specialty Start Date End Date Nancy Daly MD [address] [facility] [place] [address] PCP - General Family Medicine 09/18/16 Ribbon Blocker Relationship Specialty Start Date End Date Nancy Daly MD [address] [facility] [place] [address] PCP - General Family Medicine 09/18/16 Ribbon Blocker Relationship Specialty Start Date End Date Nancy Daly MD [address] [place] [place] [address] PCP - General Family Medicine 09/18/16 Ribbon Blocker Relationship Specialty Start Date End Date Nancy Daly MD [address] [facility] [place] [address] PCP - General Family Medicine 09/18/16 Ribbon Blocker Relationship Specialty Start Date End Date Nancy Daly MD [address] [place] [place] [address] PCP - General Family Medicine 09/18/16 Ribbon Blocker Relationship Specialty Start Date End Date Nancy Daly MD [address] [place] [address] PCP - General Family Medicine 09/18/16 Ribbon Blocker Relationship Specialty Start Date End Date Nancy Daly MD [address] [place] [address] PCP - General Family Medicine 09/18/16 Ribbon Blocker Relationship Specialty Start Date End Date Nancy Daly MD [address] [place] [place] [address] PCP - General Family Medicine 09/18/16 Ribbon Blocker Relationship Specialty Start Date End Date Nancy Dayl MD [address] [facility] [place] [address] PCP - General Family Medicine 09/18/16 Ribbon Blocker Relationship Specialty Start Date End Date Nancy Daly MD [address] [place] [address] PCP - General Family Medicine 09/18/16 Ribbon Blocker Relationship Specialty Start Date End Date Nancy Daly MD [address] [place] [address] PCP - General Family Medicine 09/18/16 Ribbon Blocker Relationship Specialty Start Date End Date Nancy Daly MD [address] [facility], [place] [address] PCP - [facility] 09/18/16 Ribbon Blocker Relationship Specialty Start Date End Date Nancy Daly MD [address] [facility], [place] [address] PCP - [facility] 09/18/16 Ribbon Blocker Relationship Specialty Start Date End Date Nancy Daly MD [address] [facility], [place] [address] PCP - [facility] 09/18/16 Ribbon Blocker Relationship Specialty Start Date End Date Nancy Daly MD [address] [facility], [place] [address] PCP - [facility] 09/18/16 Ribbon Blocker Relationship Specialty Start Date End Date Nancy Daly MD [address] [facility], [place] [id number] PCP - [facility] 09/18/16 (unrecognized sect ion and content) No Status Records FoundNo Status Records FoundNo Status Records Found INFORMATION SOURCE (unrecogn ized section and content) DATE CREATED AUTHOR AUTHOR'S ORGANIZ ATION 12/17/2022 [facility] DATE CREATED AUTHOR AUTHOR'S ORGANIZ ATION 02/21/2023 [facility] FOR RECORDS PERTAINING TO PATIENTS WHO ARE OR HAVE BEEN ENROLLED IN A CHEMICAL DEPENDENCY/SUBSTANCEABUSE PROGRAM, SOME INFORMATION MAY BE OMITTED. This clinical summary was aggregated from multiple sources. Caution should be exercised in using it in the provision of clinical care. This summary normalizes information from multiple sources, and as a consequence, information in this document may materially change the coding, format and clinical context of patient data. In addition, data may be omitted in some cases. CLINICAL DECISIONS SHOULD BE BASED ON THE PRIMARY CLINICAL RECORDS. [facility]. provides no warranty or guarantee of the accuracy or completeness of information in this document.
== END 2023-04-09 14:01 | disposition left against medical advice (07) ==
LOC: ED 14:24
PROVIDERS: PCP Family Medicine
DX: Z53.21 Procedure and treatment not carried out due to patient leaving prior to being seen by health care provider (principal)

== ENCOUNTER 2024-04-27 14:31 | Emergency (ER) | payer BC, SELFPAY ==
[2024-04-27 14:32] VITALS: BP 111/68; PULSE 77; RESP 16; TEMP 36.6; O2SAT 98; BMI 25.9
--- NOTE | 2024-04-27 15:17 | ED.VIS.BACK ---
HPI History of Present Illness Chief Complaint: Back Informant: patient Narrative Narrative: 34-year-old male states he has been having what feels like a flareup of his low back pain that he associates with disc disease for the past 4 days or so. States he woke up with this pain, he did not have any falls or injury or obvious triggers but states he does a lot of bending and lifting and pushing and moving things at work. He denies any numbness going down to his feet or beyond the knees. He states he had a little bit of tingling the other day in his perineum and he states that on the first day when he was having a lot of pain he had a small bowel movement in his pants without realizing it. He has had no bowel or bladder dysfunction since then and no urinary retention. He has had no problems walking except for the pain, to the point where he has called off of work recently. He had surgery in his low back a year or so ago, he states there was no hardware placed. Prior similar symptoms: Yes and With Prior Back Pain [facility] Medical History Laceration of right index finger Herniated disc Degenerative disc disease Home Medications ?Medication ?Instructions ?Recorded ?Last Taken ?Type amoxicillin 875 mg-potassium 1 tab PO BID #14 tabs 08/08/22 Unknown Rx clavulanate 125 mg tablet hydrocodone-acetaminophen 5-325mg 1 tab PO Q6H PRN PRN Pain 3 days 04/27/24 Unknown Rx 5mg-325mg #10 TABLETS prednisone 20 mg tablet 40 mg (2 x 20 mg) PO DAILY 5 days 04/27/24 Unknown Rx #10 tabs Allergy/AdvReac Type Severity Reaction Status Date / Time No Known Allergies Allergy Verified 08/08/22 07:06 Social History Smoking Status: Current every day smoker tobacco type: cigarettes ROS ROS ED Constitutional Constitutional ED: Denies chills or fever(s) Gastrointestinal Gastrointestinal: Denies abdominal pain, constipation, fecal incontinence, nausea or vomiting Genitourinary Genitourinary ED: Reports other Details: no urinary retention ; Denies abdominal discomfort or urinary incontinence Musculoskeletal Musculoskeletal: Reports as per HPI and back pain; Denies neck pain Integumentary Denies rash or wounds Neurologic Neurologic: Denies headache(s), paresthesias or weakness EXAM Physical Exam Const Vital Signs: 04/27/24 14:32 Temperature 98 F Temperature Source Temporal Pulse Rate 77 Respiratory Rate 16 Blood Pressure 111/68 Blood Pressure Mean 82 Pulse Ox 98 Oxygen Delivery Method Room Air Positive well nourished and well developed General Appearance ED: well developed and NAD HEENT Negative for trauma or tenderness Eyes PERRL and EOMs intact bilaterally Neck full ROM and supple GI normal to inspection, nondistended, normoactive bowel sounds, soft to palpation and non-tender Back/Spine normal to inspection Back/Spine Narrative: Well-healed surgical incision without tenderness or signs of infection. No significant midline tenderness. Lumbar Spine / Lower Back: ROM limited, paraspinal muscle tenderness bilateral (Upper lumbar) and straight leg raise negative bilaterally; Negative for lumbar spinal tenderness Extremity normal to inspection, full ROM and no pedal edema Neuro oriented x3 and no sensory deficits noted Neuro Narrative: Can stand without any difficulty or loss of strength. Sensorium / Orientation: alert Motor Exam: strength 5/5 throughout and clonus absent Deep Tendon Reflexes: Rt Patellar (L4): 2+, Lt Patellar (L4): 2+, Rt Ankle (S1): 2+ and Lt Ankle (S1): 2+ Deep Tendon Reflexes Back: Rt Patellar (L4): 2+, Lt Patellar (L4): 2+, Rt Ankle (S1): 2+ and Lt Ankle (S1): 2+ Psych mental status grossly normal and thought process normal Skin no rashes or lesions noted and no wounds MDM MDM MDM Narrative Medical decision making narrative: Vital signs are normal his exam is very benign. Neurologically he is intact. Straight leg raises are negative, increasing his back pain ipsilaterally on the left only. No radiculopathy here. He does not currently have any signs of cauda equina syndrome, nor does have any weakness in his legs. Therefore I do not think he needs any emergent advanced imaging. He states he had some steroids before surgery once that did not seem to help and another course of steroids that did seem to help. He states in the past naproxen seem to help more than prednisone. He is willing to do a dose of naproxen here as well as a short course of steroids at home to see if this help in addition to something else for pain as needed at nighttime, and asking for a work note, and following up with local back surgeon. Discharge Plan Triage Chief Complaint: Back ED Provider: Juan Heath Dx/Rx/DC Orders Clinical Impression: Acute low back pain, Hx of degenerative disc disease Instructions: ED Back Pain (Acute or Chronic) Prescriptions: New hydrocodone-acetaminophen 5-325 mg tablet 1 tab PO Q6H PRN PRN (Reason: Pain) 3 Days Qty: 10 0RF prednisone 20 mg tablet 40 mg PO DAILY 5 Days Qty: 10 0RF No Action amoxicillin-pot clavulanate 875-125 mg tablet 1 tab PO BID Qty: 14 0RF Primary Care Provider: Elmo Daly Referrals: Dhiraj Santos MD [Med Staff - Active Staff] - As soon as possible Print Language: Nepali Disposition Disposition: Home, Self Care
[2024-04-27] MEDS: Naproxen 500 MG Tablet PO (15:24)
== END 2024-04-27 15:50 | disposition home or self-care (01) ==
LOC: ED 15:46
PROVIDERS: Emergency Provider Emergency Medicine; PCP Family Medicine; Visit Provider Emergency Medicine
DX: M54.50 Low back pain, unspecified (principal); F17.210 Nicotine dependence, cigarettes, uncomplicated
CPT/HCPCS: 99282

== ENCOUNTER 2024-06-11 16:00 | Outpatient (RCR) | payer BC, SELFPAY ==
--- NOTE | 2024-05-06 15:56 | HP.PTEVAL_ITS ---
Patient's Visit Information Visit Information Visit Information: KATE SHELTON Jr. is a 34 year old M referred to Physical Therapy by IFRAH Ramirez with a diagnosis of radiculopathy. Date of Evaluation: 05/06/24 Physical Therapist: Emmett Huerta, JOSET, OCS, CSCS Visit Plan Frequency: 2x /Week Duration: 4-6 Weeks Plan: 2x/week for 4-6 weeks for 1. LB ROM /yoga and progress to HEP, lumbar and thoracic ext mobs and pelvic ROM 2. HS stretch and progress to HEP 3. core strenggth and progress to HEP/gym 4. General strength and progress to HEP/gym IE HEP: PPU 10x 8x./day, slouch overcorrect when in one posiotion long time, postural review with pics. Subjective Subjective: LBP for two decades. Had a skateboarding accident at the time and pain ever since. Intermittent pain since Real intense during flare ups. Surgery 1 and half yrs ago cleaning up back and felt good after that until a month ago and now creeping back. This flare up started 2 weeks ago for no reason. 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 Worse sitting. sleep is interrupted some nights. Hobbies: video games, sits and stands , sits on knees due to pain. Leg symptoms L leg pain down inside and throbs at times. Likes to build stuff with wood but not lately due to back. Basic ADLs all getting ddone. 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 No antalgia today Lumbar ext is max limited and painfu, flexion max limited and painful, SB min limited, no pain. posture is flat lordosis andforward head. core strength 4- abs and ext PA pressure tender lumbar area., soft tissue not bad. reflexes 2/3 patella and achilles B Sensation LE WNL to gross lgiht touch B. strength hips 4-, knees 4, ankles 4+ without myotomal problems - slump - SLR HS max tight at -40 90/90 test. repeated PPU increased ext ROM and feels better. Balance/Special Test Scores Oswestry Low Back Score: 20 Goals Goal 1:: Lumbar ROM flexion adn ext without hesitation or increased pain. Goal Time Frame: 4-6 Weeks Goal 2:: Patient feel pain 2/10 at worst adn 75% improved overall Goal Time Frame: 4-6 Weeks Goal 3:: sleep without pain awakening Goal Time Frame: 4-6 Weeks Goal 4:: Work without increased pain Goal Time Frame: 4-6 Weeks Goal 5:: oswstry score 5 or better Goal Time Frame: 4-6 Weeks Goal 6:: I approrpiate HEP to limit future problems Goal Time Frame: 4-6 Weeks Rehabilitation Potential Physical Therapy Diagnosis: LB stiffness, pain and core weakness limiting comf ortable funciton Rehabilitation Potential: Good Anticipated Interventions Patient/Client Instruction: Educate patient on: Condition and Plan of Care For the Purpose of:: To decrease pain, To increase ROM, To improve nutrient delivery to tissue and To improve muscle performance and motor function Therapeutic Exercise to Include: Strength training, Postural training, Flexibilty training, Relaxation training, Passive ROM and Active ROM For the Purpose of:: To decrease pain, To increase ROM, To improve nutrient delivery to tissue, To improve muscle performance and motor function, To increase tolerance to activity/condition/position and To increase fl exibility/ROM Manual Therapy Techniques to Include: Mobilization, Passive ROM and Soft tissue mobilization For the Purpose of:: To decrease pain, To increase ROM, To improve nutrient delivery to tissue, To improve muscle performance and motor function, To increase tolerance to activity/condition/position, To improve gait and locomotor functions and To increase flexibility/ROM Thermo therapy (hot pack): Yes For the Purpose of:: To decrease pain and To improve nutrient delivery to tissue Text: Thank you for the opportunity to evaluate your patient. For Medicare and Medicare HMO plans, please review the plan of care and approve it. It will need to be FAXED BACK to us at [phone] for Medicare purposes. For Medicare only, by signing this I certify the plan of care. Please let me know if there are questions or concerns regarding this plan of care. Physician Signature: Date:
--- NOTE | 2024-06-11 16:50 | HP.PTDCSUM ---
Discharge Summary D/C summary: It has been my pleasure to treat KATE SHELTON Jr. referred by IFRAH Ramirez, with the diagnosis of radiculopathy for a total of 9 visit(s). Discharge Date: 06/11/24 Please see the following information for a summary of their discharge status. Subjective Subjective: Getting better. Workouts really helped. Much better off with less intense pain. Pain is down around 3/10. Work is better but still worse at times. Activity at home is normal. avoids heavy lifting. Sleep is OK after therapy. Will get MRI and continue via HEP. Then f/u with doctor. Pain LBP: Pain Intensity (Out of 10): 3 Overall Improvement % Improvement: 80 Objective Objective/Function: Lumbar spine is moving very wella dn without hesitation today. Walking normal and transitioning normal without pain today. Goals Goal 1:: Lumbar ROM flexion adn ext without hesitation or increased pain. Goal Progress: Goal Met Goal 2:: Patient feel pain 2/10 at worst adn 75% improved overall Goal Progress: Goal Met Goal 3:: sleep without pain awakening Goal Progress: Goal Met Goal 4:: Work without increased pain Goal Progress: Progressing Goal 5:: oswstry score 5 or better Goal Progress: Progressing Goal 6:: I approrpiate HEP to limit future problems Goal Progress: Goal Met Plan Plan: continue via HEP and f/u with doctor after MRI. d/c PT. D/C Information Discharge Comments: To continue HEP adn have MRI and f/u with doctor. Can send back if evntaully wants more aggressive strengthening after MRI. d/c sentence: If there are questions or concerns regarding this patient's physical therapy, please feel free to call me at [phone]. Thank you for the referral of this patient. Sincerely, Emmett Huerta, DPT, OCS, CSCS Balance/Gait/Functional tests Balance/Special Test Scores Oswestry Low Back Score: 8 Improvement % Improvement: 80
== END 2024-06-11 19:00 | disposition home or self-care (01) ==
LOC: PT 16:00
PROVIDERS: PCP Family Medicine; Visit Provider Student in an Organized Health Care Education/Training Program
DX: M54.16 Radiculopathy, lumbar region (principal)
CPT/HCPCS: 97110; 97161; 97164